=== PATIENT | male | born 1975 | race Caucasian/White ===

== ENCOUNTER 2021-12-11 12:05 | Outpatient (REF) | payer MEDICAID, SELFPAY ==
--- NOTE | ~2021-12-11 | XR_ITS ---
EXAMINATION: XR CHEST CLINICAL INFORMATION: Persistent cough. History of smoking. COMPARISON: November 06, 2018 TECHNIQUE: 2 views of the chest were obtained. FINDINGS: No significant abnormality is noted involving the heart, lungs, mediastinum, bony thorax or soft tissues. XR/XR chest 2V IMPRESSION: No acute disease.
== END 2021-12-11 12:06 | disposition home or self-care (01) ==
LOC: HO.XRAY 12:05
PROVIDERS: PCP Registered Nurse; Visit Provider Registered Nurse
DX: R05.3 Chronic cough (principal)
CPT/HCPCS: 71046

== ENCOUNTER 2022-05-23 14:29 | Outpatient (REF) | payer MEDICAID, SELFPAY | END 2022-05-23 14:30 | disposition home or self-care (01) | LOC: HO.LAB 14:29 | PROVIDERS: Visit Provider Internal Medicine | DX: Z13.89 Encounter for screening for other disorder (principal) | CPT/HCPCS: 87635; C9803 ==

== ENCOUNTER 2023-08-07 16:18 | Outpatient (REF) | payer MEDICAID, SELFPAY ==
[2023-08-11 08:50] LABS: Fentanyl, Ur NEGATIVE; Norfentanyl, Ur NEGATIVE
== END 2023-08-07 16:19 | disposition home or self-care (01) ==
LOC: HO.HHCLNP 16:18
PROVIDERS: Visit Provider Emergency Medicine
DX: F11.20 Opioid dependence, uncomplicated (principal)
CPT/HCPCS: 80354

== ENCOUNTER 2023-08-22 12:50 | Outpatient (REF) | payer MEDICAID, SELFPAY ==
[2023-08-22 16:36] LABS: MANUAL DIFF FLAG NO
[2023-08-22 16:57] LABS: Basophils Absolute Auto 0.1 X10*3/uL (0.0-0.2); Basophils Percent Auto 0.8 % (0-2); Eosinophils Absolute Auto 0.2 X10*3/uL (0.0-0.4); Eosinophils Percent Auto 2.3 % (0-4); Hematocrit 44.3 % (42.0-52.0); Hemoglobin 14.5 g/dl (14.0-18.0); Imm Gran Abs Auto 0.02 X10*3/uL (0.00-0.03); Imm Gran Pct Auto 0.3 % (0.0-0.4); Lymphocytes Absolute Auto 2.3 X10*3/uL (1.2-4.9); Lymphocytes Percent Auto 34.7 % (20-40); Mean Corpuscular HGB Conc 32.7 g/dl (31.0-36.0); Mean Corpuscular Volume 91.5 fL (80.0-98.0); Mean Platelet Volume 9.1 fL (9.4-12.4); Monocytes Absolute Auto 0.4 X10*3/uL (0.1-1.2); Monocytes Percent Auto 6.3 % (2-11); Neutrophils Absolute Auto 3.7 x10*3/uL (2.0-8.3); Neutrophils Percent Auto 55.6 % (45-73); Platelet Count 350 X10*3/uL (160-400); Red Blood Count 4.84 X10*6/uL (4.60-5.80); Red Cell Distribution Width 12.8 % (11.0-16.0); White Blood Count 6.7 X10*3/uL (4.8-10.8)
[2023-08-22 17:18] LABS: Anion Gap 13 (12-20); Blood Urea Nitrogen 10 mg/dL (9-16); Calcium 9.7 mg/dL (8.4-10.2); Carbon Dioxide 30 mmol/L (22-29); Chloride 105 mmol/L (96-108); Estimated Glomerular Filt Rate > 60; Glucose Random 87 mg/dL (60-115); Potassium 4.9 mmol/L (3.3-5.1); Sodium 143 mmol/L (135-145)
[2023-08-22 17:33] LABS: TSH reflex Free T4 0.67 uIU/mL (0.32-4.0)
== END 2023-08-22 12:51 | disposition home or self-care (01) ==
LOC: HO.HHCL 12:50
PROVIDERS: Visit Provider Internal Medicine
DX: R53.83 Other fatigue (principal)
CPT/HCPCS: 36415; 80048; 84443; 85025

== ENCOUNTER 2023-12-31 16:21 | Emergency (ER) | payer OTHER, SELFPAY | END 2023-12-31 17:46 | disposition left against medical advice (07) | PROVIDERS: Emergency Provider Emergency Medicine; PCP Registered Nurse | DX: S61.219A Laceration without foreign body of unspecified finger without damage to nail, initial encounter (principal); X58.XXXA Exposure to other specified factors, initial encounter; Y93.9 Activity, unspecified; Y92.9 Unspecified place or not applicable; Y99.9 Unspecified external cause status ==

== ENCOUNTER 2024-06-28 13:41 | Outpatient (REF) | payer OTHER, SELFPAY ==
[2024-06-28 17:51] LABS: Estimated Average Glucose 105 mg/dL; Hemoglobin A1C 129.1901 umol/L; Hemoglobin A1c % 5.3 % (<6.0); Total Hemoglobin (HGBA1C) 3751.0963 umol/L
[2024-06-28 18:15] LABS: CT PCR NOT DETECTED (Not Detect.); NG PCR NOT DETECTED (Not Detect.)
[2024-06-28 19:39] LABS: Alanine Aminotransferase 23 U/L (0-40); Albumin Level 4.7 g/dL (3.5-5.0); Anion Gap 12 (12-20); Aspartate Amino Transferase 27 U/L (5-37); Bilirubin Direct 0.1 mg/dL (0.0-0.5); Bilirubin Total 0.5 mg/dL (0.0-1.0); Blood Urea Nitrogen 11 mg/dL (9-16); Calcium 9.9 mg/dL (8.4-10.2); Carbon Dioxide 28 mmol/L (22-29); Chloride 107 mmol/L (96-108); Cholesterol 169 mg/dL (<200); Estimated Glomerular Filt Rate > 60; Glucose Random 119 mg/dL (60-115); HDL Cholesterol 54 mg/dL (>40); LDL Cholesterol Calculated 100 mg/dL (<100); Potassium 4.3 mmol/L (3.3-5.1); Sodium 143 mmol/L (135-145); Total Protein 8.2 g/dL (6.5-8.0); Triglycerides 78 mg/dL (<150)
[2024-06-28 20:20] LABS: Alkaline Phosphatase 70 U/L (39-117)
[2024-06-29 04:27] LABS: Syphilis Screen Nonreactive (Nonreactive)
[2024-06-29 04:48] LABS: HIV AB/AG Nonreactive (Nonreactive); HIV Num 1 0.06 S/CO (0.00-0.99); ~HepC Num1 0.12 S/CO (0.00-0.79); ~Hepatitis C Antibody Nonreactive (Nonreactive)
[2024-07-01 10:22] LABS: TS Negative Control Passed; TS Panel A 0; TS Panel B 0; TS Positive Control Passed; TSpotTB Negative (Negative)
== END 2024-06-28 13:42 | disposition home or self-care (01) ==
LOC: HO.HHCL 13:41
PROVIDERS: Family Medicine; Visit Provider Registered Nurse
DX: Z00.00 Encounter for general adult medical examination without abnormal findings (principal); F11.20 Opioid dependence, uncomplicated; E66.811 Obesity, class 1; E66.09 Other obesity due to excess calories; Z68.31 Body mass index [BMI] 31.0-31.9, adult; Z11.1 Encounter for screening for respiratory tuberculosis
CPT/HCPCS: 36415; 80053; 80061; 80076; 82248; 83036; 86481; 86780; 86803; 87389; 87491; 87591

== ENCOUNTER 2024-09-06 14:22 | Outpatient (AMB) | payer OTHER, SELFPAY ==
--- NOTE | 2024-09-06 14:26 | MHC.OFFVIS ---
Vital Signs 09/06/24 14:32 Height 6 ft Weight 211 lb BMI 28.6 BP 141/78 H Blood Pressure Location Rt brachial Position Sitting Pulse 90 Pulse Source Pulse Oximeter Pulse Oximetry (%) 97 Oxygen Delivery Method Room Air Intake Visit Reasons: receurrent anorectal abscess Intake Note: Patient states he is being reffered by PCP Angelica Henley from [facility] for recurrent anorectal abcess. He was reffered on 08/12/2024. Allergies Sulfa (Sulfonamide Antibiotics) [SULFA (SULFONAMIDE ANTIBIOTICS)] Allergy (Intermediate, Verified 09/06/24 14:34) HIVES, Facial swelling Medication List - Last Reconciled 09/06/24 by Jos Zepeda MD buprenorphine-naloxone 12-3 mg 1 film buccal Q24H clonidine HCl 0.1 mg PO BEDTIME doxepin 150 mg PO DAILY gabapentin 400 mg PO DAILY mirtazapine 7.5 mg PO DAILY nicotine 1 patch transdermal DAILY HPI HPI receurrent anorectal abscess: Details: 48-year-old female here for a recurrent area of swelling on the perianal region. He said he has had this for about 2 years but this became swollen again about 3 weeks ago. He says he was told in the past by a different physician that this needs to be excised . Currently there has no swelling. He says that when this was up, sometimes he would see drainage. [facility] Medical History (Updated 09/06/24 @ 15:01 by Jos Zepeda MD) Perianal cyst GERD (gastroesophageal reflux disease) Obesity (BMI 30-39.9) Reactive airway disease Generalized anxiety disorder Polysubstance abuse Tobacco abuse Hypertension H. pylori infection Review of Systems Const Denies chills and Denies fever(s) Card Denies chest pain, Denies dyspnea and Denies dyspnea on exertion Resp Denies cough, Denies dyspnea and Denies dyspnea on exertion GI Denies hematochezia and Denies change in bowel habits Denies hematuria and Denies difficulty urinating Musc Denies back pain and Denies limited range of motion Neuro Denies focal weakness and Denies convulsions Psych Denies depression and Denies mood swings Physical Exam Vital Signs: Last Vital Signs Pulse 90 09/06/24 14:32 BP 141/78 H 09/06/24 14:32 Pulse Ox 97 09/06/24 14:32 Oxygen Delivery Method Room Air 09/06/24 14:32 BMI result Body Mass Index 28.6 Const General: comfortable and no acute distress Orientation/consciousness: patient oriented x3 Neck Neck: Yes no lymphadenopathy Resp Auscultation: clear to auscultation bilaterally Cardio Rhythm: regular rhythm GI Other: Rectal exam shows a small vague induration, probably about 3 mm perianal area to the left, towards the buttock posteriorly, without any redness or fluctuance Palpation (GI): Soft to palpation, nontender and no guarding Neuro General: patient oriented x3 Assessment & Plan Assessment & Plan (1) Perianal cyst: Code(s): K62.89 - Other specified diseases of anus and rectum Category: Medical Plan: He has what appears to be a perianal cyst as described above. I am uncertain if this represents a fistula. I therefore told him that we can proceed with excision under local anesthesia for now. I explained to him the technique of the procedure. I reviewed the risks including but not limited to bleeding, infections and poor healing, as well as the benefits and alternatives. He understands and wants to proceed This will be done in the office on his next visit. Coding Level of Care Code New Pt Level 3 (19744) Diagnoses Perianal cyst K62.89
[2024-09-06 14:32] VITALS: BP 141/78; PULSE 90; O2SAT 97; BMI 28.6
== END 2024-09-06 15:08 | disposition home or self-care (01) ==
LOC: HO.HGS 14:22
PROVIDERS: PCP Registered Nurse; Visit Provider Surgery
DX: K62.89 Other specified diseases of anus and rectum (principal)
CPT/HCPCS: 99203

== ENCOUNTER → 2024-09-06 14:22 | Outpatient (BNVA) | payer OTHER, SELFPAY | PROVIDERS: PCP Registered Nurse; Visit Provider Surgery | DX: K62.89 Other specified diseases of anus and rectum (principal) | CPT/HCPCS: 99202 ==

== ENCOUNTER 2024-09-17 15:35 | Outpatient (REF) | payer OTHER, SELFPAY ==
[2024-09-17 16:15] LABS: Appearance Urine Clear; Color Urine Yellow; Glucose Urine UA Negative (Negative); Leukocyte Esterase Urine Negative (Negative); Nitrite Urine Negative (Negative); PH 5.5 (5.0-9.0); Specific Gravity - Urine >= 1.030 (1.005-1.025); Urine Blood Negative (Negative); Urine Ketones Trace mg/dL (Negative); Urine Protein Negative (Neg-Trace)
[2024-09-17 16:23] LABS: Bacteria Urine None Seen (None Seen); Hyaline Casts Urine 0-2 /LPF (0-2); RBC Urine 0-2 /HPF (0-2); Squamous Epithelial Cell Urine 0-2 /HPF (0-2); WBC Urine 0-5 /HPF (0-5)
--- OUTSIDE RECORDS SUMMARY | 2024-09-17 16:44 | XMS_ITS | Encounter Summary ---
Author Organization [employer] Address [address] [place] [address] Care Team Providers Care Software Asset Manager Name Role Phone [place] [facility] Primary Care Provider [phone] Reason for Visit * Reason Comments Med Refill Encounter Details Date Type Department Care Team (Late Contact Info) Description 06/19/[address] [facility] MED[facility]INE [address] [place] [address] Angelica Henley [facility] [address] [place] [address] Social History Tobacco Use Types Packs/Day Years Used Date Smoking Tobacco: Never Assessed Sex and Gender Information Value Date Recorded Sex Assigned at Male 04/15/2022 10:39 AM EDT Legal Sex Male 10:39 AM EDT Gender Identity Male 04/15/2022 10:39 AM EDT Sexual Orientation Straight 04/15/2022 10 :39 AM EDT documented as of this encounter Plan of Treatment Upcoming Encounters Date Type Department Care Team (Late st Contact Info) Description 09/30/2024 1:45 PM EDT Office Visit [facility] [address] [place] [address] Marychuy Fam MD [address] [place] [address] documented as of this encounter Visit Diagnoses Not on filedocumented in this encounter Care Teams Software Asset Manager Relationship Specialty Start Date End Date Angelica Henley [facility] [address] [place] [address] PCP - General Family Medicine 11/02/21 documented as of this encounter
--- OUTSIDE RECORDS SUMMARY | 2024-09-17 16:44 | XMS_ITS | Encounter Summary ---
Author Organization [employer] Address [address] [facility] [address] [place] [address] Care Team Providers Care Production Illustrator Name Role Phone [place] [facility] Primary Care Provider [phone] Reason for Visit * Reason Onset Date Comments Nurse Triage 12/26/2022 Encounter Details Date Type Department Care Team (Late st Contact Info) Description 12/26/[address] [facility] MEDICINE [address] [place] [address] [facility] [address] [place] [address] Nurse Triage Social History Tobacco Use Types Packs/Day Years Used Date Smoking Tobacco: Never Assessed Sex and Gender Information Value Date Recorded Sex Assigned at Male 04/15/2022 10:39 AM EDT Legal Sex Male 10:39 AM EDT Gender Identity Male 04/15/2022 10:39 AM EDT Sexual Orientation Straight 04/15/2022 10 :39 AM EDT documented as of this encounter Miscellaneous Notes * Telephone Encounter - Reunka Lopez RN - 12/26/2022 3:14 PM EDT Triage call with [employer] Operator ID [id number] Pt reports dizziness for almost a month now. Pt reports tachycardia, not sleeping and my blood sugar may be bad . Pt is at work during triage. Pt reports drinking 1-2 liters of water per day. Pt is concerned that diabetes is a familial problem and doesn't know if what Pt is feeling could be related to blood sugar. Pt is educated as to signs / sx of low blood sugar and high blood sugar. Pt reports feels dizziness in AM when wakes up, has some hunger and weakness during the day. Advised Pt that 1-2 liters of water could decrease blood sugar and needs to be sure to eat protein snacks during thework day and Pt agrees. Pt is requesting to see provider for check up . Offered a 345pm apt today with [facility] but, Pt declined due to work. Apt with Dr. Méndez 01/02 @ 1130am. home care reviewed with Pt. Insurance is verified as active prior to booking. Protocol Used: Dizziness (Adult) Protocol-Based Disposition: See in Office or Video Visit within 2 Weeks Positive Triage Question: * Dizziness not present now, but is a chronic symptom (recurrent or ongoing AND lasting > 4 weeks) * All higher-acuity triage questions were negative Care Advice Discussed: * Reassurance and Education - Dizziness From Standing * Sit Up Slowly Before Standing * Drink Fluids * Lie Down and Rest * Cool Off * Prevention * Reasons To Call Back - After 2 hours of rest and fluids and still feeling dizzy. - Passes out (faints). - You become worse. * Reassurance and Education - Dizziness From Heat Exposure * Drink Liquids * Cool Off * Lie Down and Rest * Prevention * Reasons To Call Back - After 2 hours of rest and fluids and still feeling dizzy. - Passes out (faints). - You become worse. * Telephone Encounter - Helen Vásquez - 12/26/2022 2:39 PM EDT Symptom: Dizziness Outcome: Schedule an urgent appointment (within 4 hours) or talk to a nurse or provider soon Reason: Getting worse The caller accepted this outcome Please contact pt at [phone] (Kyrgyz speaker) documented in this encounter Plan of Treatment Upcoming Encounters Date Type Department Care Team (Late st Contact Info) Description 09/30/2024 1:45 PM EDT Office Visit [facility] MEDICINE [address] [place] [address] Marychuy Fam MD [address] [place], [place] [phone] documented as of this encounter Visit Diagnoses Not on filedocumented in this encounter Care Teams Production Illustrator Relationship Specialty Start Date End Date Angelica Henley FNP [address] [place] [address] PCP - General Family Medicine 11/02/21 documented as of this encounter
--- OUTSIDE RECORDS SUMMARY | 2024-09-17 16:44 | XMS_ITS | Clinical Summary ---
Author Organization [employer] Address [address] [place] [address] 7[address] [place] [address] Care Team Providers Care Hospice Entrance Attendant Name Role Phone Angelica Henley [facility] Primary Care Provider [phone] Allergies Active Allergy Reactions Criticality Noted Date Comments Sulfa Antibiotics Rash Low 04/21/2020 Other reaction(s): rash, rash Medications hydrOXYzine HCl (Atarax) 50 MG tablet take 1 Tablet by oral route 4x/day prn anxiety 2 Active lidocaine (Lidoderm) 5 % patch Place 1 patch on the skin. 2 Active tiZANidine (Zanaflex) 4 MG capsule take 1 capsule by oral route qhs x 1w then qhs prn muscle spasm 2 Active carbamide peroxide (Debrox) 6.5 % otic solution 5 drops every 12 (twelve) hours. 2 Active terbinafine (LamISIL) 1 % cream Apply topically. 2 Active albuterol (ProAir HFA) 108 (90 Base) MCG/ACT inhaler Inhale 2 puffs every 4 (four) hours if needed. 2 Active nicotine polacrilex (Commit) 4 MG lozenge Take 1 tablet by mouth every 2 (two) hours. 2 Active naloxone (Narcan) 4 mg/0.1 mL nasal spray Administer 4 mg into affected nostril(s) if needed for opioid reversal. May repeat every 2-3 minutes if needed, alternating nostrils, until medical assistance becomes available. Active nicotine (Nicoderm, Step 3) 7 MG/24HR patch Place 1 patch on the skin 1 (one) time each day at the same time. Apply 1 patch by transdermal route everyday and wear for 16-24 hrs. Active nicotine (Nicoderm, Step 2) 14 MG/24HR patch Place 1 patch on the skin 1 (one) time each day at the same time. Apply 1 patch by transdermal route everyday and wear for 16-24 hrs. Active nicotine (Nicoderm, Step 1) 21 MG/24HR patch Place 1 patch on the skin 1 (one) time each day at the same time. Apply 1 patch by transdermal route everyday and wear for 16-24 hrs. Active Spacer/Aero-Holdi ng Chambers device For use with proair Active doxepin (SINEquan) 150 MG capsule Take 1 capsule (150 mg) by mouth at bedtime. 5 capsule 3 Active Blood Pressure kit 1 kit in the morning. 1 kit 4 Active Symbicort 80-4.5 MCG/ACT inhaler INHALE 2 PUFFS BY MOUTH TWICE DAILY IN THE MORNING AND IN THE EVENING RINSE MOUTH AFTER USING. 10.2 g 3 4 Active gabapentin (Neurontin) 400 MG capsuleIndication s:Insomnia, unspecified type TAKE 1 CAPSULE BY MOUTH EVERY DAY AT BEDTIME 30 capsule 4 Active buprenorphine ER (Sublocade) 300 mg/1.5mL injectionIndicati ons:Opioid dependence, uncomplicated (CMS/HCC) Inject 1.5 mL (1 each) under the skin every month to absorb continually. 1.5 mL 1 4 Active cloNIDine (Catapres) 0.1 MG tabletIndications :Opioid type dependence, continuous (CMS/HCC) TAKE 1 TABLET BY MOUTH THREE TIMES DAILY 90 tablet 1 4 Active ibuprofen 600 MG tablet Take 1 tablet (600 mg) by mouth every 6 (six) hours if needed for mild pain for up to 20 doses. 20 tablet 4 Active mirtazapine (Remeron) 7.5 MG tablet Take 7.5 mg by mouth at bedtime. 4 Active Suboxone 12-3 MG per sublingual filmIndications:U ncomplicated opioid dependence (CMS/HCC) Place 1 Film under the tongue [address] 1 film by sublingual route 2 times every day and allow to dissolve slowly in mouth without chewing or swallowing. 56 Film 1 5 025 Active varenicline (Chantix Continuing Month Hosea) 1 MG tabletIndications :Tobacco use Take 1 tablet (1 mg) by mouth 2 times daily. Take with full glass of water. 60 tablet 2 5 025 Active Hospital, Clinic, or Other Facility Administered Medication Ordered Dose Route Frequency Start Date End Date Status ibuprofen tablet 800 mgIndications:Injury of finger of left hand, initial encounter 800 mg PO Once 12/31/2023 Active Active Problems Problem Noted Date Diagnosed Date Dental caries 01/22/2024 Dental plaque 01/22/2024 Generalized gingival recession 01/22/2024 Xerostomia 01/22/2024 Severe dental caries 01/14/2024 Chronic low back pain 05/04/2022 Cough 05/04/2022 Greater trochanteric pain syndrome 05/04/2022 Shoulder strain 05/04/2022 Encounters Date Type Department Care Team Description 09/10/2024 Orders Only [facility] [address] [place] [phone] Angelica Henley FNP Dysuria (Primary Dx) 09/06/[address] [address] Angelica Henley FNP Nurse Triage 09/03/2024 2:00 PM EDT Office Visit [address] [address] Angelica Henley FNP 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) 09/03/2024 Travel 08/30/[address] [phone] Angelica Henley FNP Call Back Request 08/20/[address] [address] Angelica Henley FNP Med Refill 08/17/[address] [address] Angelica Henley FNP Call Back Request 08/06/2024 1:15 PM EST Office Visit [address] [address] Angelica Henley FNP 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) 08/06/2024 Travel 08/05/2024 2:45 PM EST Office Visit [address] [address] Marychuy Fam MD Uncomplicated opioid dependence ([facility]/HCC) (Primary Dx) 07/30/2024 1:15 PM EST Office Visit [address] [address] Angelica Henley FNP Cyst of perianal area (Primary Dx); Tobacco use 07/30/[address] [address] Sebastian Poole RN Uncomplicated opioid dependence (CMS/HCC) 07/30/2024 Travel 07/29/[address] [address] Marychuy Fam MD Uncomplicated opioid dependence (CMS/HCC) 07/28/[address] [address] Angelica Henley FNP Nurse Triage 07/26/2024 3:00 PM EST Office Visit [facility] [address] [place] [address] Warren Peoples Dental calculus (Primary Dx) 07/22/2024 Patient Outreach [address] [address] Angelica Henley FNP Pre-visit Planning (SDOH screening negative and tobacco screening negative) 06/30/[address] [address] Pam Darling, RN Results 06/28/2024 Travel from Last 3 Months Immunizations Name Administration Dates Next Due Hep B, adult 12/14/2021 INFLUENZA INJECTABLE QUADRIV ALANT CCIIV4 MDCK Multi-dose vial 04/06/2019 Influenza injectable quadriv alent IIV4 with preservative 03/04/2017 Influenza injectable quadrivalent preservative f ree 05/01/2018 Influenza, IIV3, injectable 04/14/2014 Influenza, seasonal, injectable, preservative fr ee 04/26/2024 Tdap 12/31/2023,12/14/2021 Social History Tobacco Use Types Packs/Day Years Used Date Smoking Tobacco: Every Day Cigarettes Tobacco Cessation:Ready to Q uit: Not Asked; Counseling Given: Not Answered Housing Stability Answer Date Recorded What is your housing situation today? I have carrie saenz 10/03/[address] you li ve. Do you have problems with any of the following? None of the above 10/03/2023 Food Insecurity Answer Date Recorded Within the past 12 months, y ou worried that your food would run out before you got money to buy more: Never True 07/22/2024 Within the past 12 months,th e food you bought just didn't last and you didn't have enough money to get more: Never True 11/2024 Transportation Answer Date Recorded In the past 12 months, has l ack of transportation kept you from medical appts, meetings, work or from getting things needed for daily living? No 10/03/2023 Utilities Answer Date Recorded In the past 12 months, has t he electric, gas, oil or water company threatened to shut off services in your home? No 10/03/2023 Internet Access Answer Date Recorded Internet Access Q1 Yes 07/22/2024 Internet Access Q2 Not on file 07/22/2024 Sex and Gender Information Value Date Recorded Sex Assigned at Male 04/15/2022 10:39 AM EDT Legal Sex Male 10:39 AM EDT Gender Identity Male 04/15/2022 10:39 AM EDT Sexual Orientation Straight 04/15/2022 10 :39 AM EDT Last Filed Vital Signs Vital Sign Reading Time Taken Comments Blood Pressure 136/82 09/03/2024 1:54 PM EDT Pulse 81 09/03/2024 1:54 PM EDT Temperature 36.3 ??C (97.4 ??F) 09/03/2024 1:54 PM ED T Respiratory Rate 20 09/03/2024 1:54 PM EDT Oxygen Saturation 97% 07/30/2024 1:22 PM EST Inhaled Oxygen Concentration - - Weight 96.4 kg (212 lb 9.6 oz) 09/03/2024 1:54 P M EDT Height 182.9 cm (6') 09/03/2024 1:54 PM EDT Body Mass Index 28.83 09/03/2024 1:54 PM EDT Plan of Treatment Upcoming Encounters Date Type Department Care Team (Late st Contact Info) Description 09/30/2024 1:45 PM EDT Office Visit [facility] [address], [place] [phone] Marychuy Fam MD [address] [place], [place] [phone] Health Maintenance Due Date Last Done Comments CT Colonography 1977 Colonoscopy 1977 Colorectal Cancer Screening 1977 FIT DNA/Cologuard 1977 FIT 1977 FOBT 1977 Sigmoidoscopy 1977 Family Planning (PISQ) 1992 Pneumococcal Vaccine: Pediatrics (0 to 5 Years) and At-Risk Patients (6 to 49) Years) (1 of 2 - PCV) 1996 Hepatitis B Vaccines (2 of 3 - 19+ 3-dose series) 01/11/2022 12/14/2021 COVID-19 Vaccine ( - 2023- season) 2024 Dental Oral Exam 07/25/2024 01/22/2024 Depression Screening 10/02/2024 10/03/2023 Dental X-Ray: Bitewings 01/22/2025 01/22/2024 Dental Prophylaxis 01/24/2025 07/26/2024, 01/22/2024 SDOH Screening 07/22/2025 07/22/2024 Alcohol/Substance Use Screening 07/30/2025 07/30/2024 Tobacco Screening 09/06/2025 09/06/2024 Dental X-Ray: Full Mouth 01/22/2027 01/22/2024 Zoster Vaccines (1 of 2) 09/09/2027 Lipid Panel 06/28/2029 06/28/2024, 12/11/2021 DTaP/Tdap/Td Vaccines (3 - Td or Tdap) 12/30/2033 12/31/2023, 12/14/2021 RSV Patients and Patients Aged 60 years or older (1 - 1-dose 75+ series) 2052 Influenza Vaccine Completed 04/26/2024, , 05/01/2018, Additional history exists HIV Screening Completed 06/28/2024, 07/24/2021 Hepatitis C Screening Completed 06/28/2024, 022 HIB Vaccines Aged Out No longer eligi ble based on patient's age to complete this topic HPV Vaccines Aged Out No longer eligi ble based on patient's age to complete this topic Hepatitis A Vaccines Aged Out No long er eligible based on patient's age to complete this topic IPV Vaccines Aged Out No longer eligi ble based on patient's age to complete this topic Meningococcal Vaccine Aged Out No kasia chris eligible based on patient's age to complete this topic RSV under 20 months Aged Out No longe r eligible based on patient's age to complete this topic Rotavirus Vaccines Aged Out No longer eligible based on patient's age to complete this topic Procedures Procedure Name Priority Date/Time Associated Diagnosis Comments URINALYSIS, COMPLETE, WITH REFLEX TO CULTURE Routine 09/17/2024 3:40 PM EDT Dysuria CRYOTHERAPY SKIN LESION Routine 09/03/2024 2:28 PM EDT 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 CRYOTHERAPY SKIN LESION Routine 08/06/2024 2:00 PM EST 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 POCT AYDEN-14 URINE DRUG SCREEN Routine 08/05/2024 1:42 PM EST Uncomplicated opioid dependence (CMS/HCC) CASE PRESENTATION, DETAILED AND EXTENSIVE TREATMENT PLANNING Routine 07/26/2024 3:00 PM EST ORAL HYGIENE INSTRUCTIONS Routine 07/26/2024 3:00 PM EST PROPHYLAXIS - ADULT Routine 07/26/2024 3 :00 PM EST T-SPOT(R).TB Routine 06/28/2024 1:45 PM EST HIV 1/2 ANTIGEN/ANTIBODY, FOURTH GENERATION W/RFL Routine 06/28/2024 1:45 PM EST HEPATITIS C AB W/REFL TO HCV RNA, QN, PCR Routine 06/28/2024 1:45 PM EST SYPHILIS SCREEN Routine 06/28/2024 1:45 PM EST HEPATIC FUNCTION PANEL Routine 1:45 PM EST HEMOGLOBIN A1C Routine 06/28/2024 1:45 PM EST Class 1 obesity due to excess calories with body mass index (BMI) of 31.0 to 31.9 in adult, unspecified whether serious comorbidity present LIPID PANEL, STANDARD Routine 06/28/2024 1:45 PM EST Class 1 obesity due to excess calories with body mass index (BMI) of 31.0 to 31.9 in adult, unspecified whether serious comorbidity present COMPREHENSIVE METABOLIC PANEL Routine 06/28/2024 1:45 PM EST Class 1 obesity due to excess calories with body mass index (BMI) of 31.0 to 31.9 in adult, unspecified whether serious comorbidity present CHLAMYDIA/N. GONORRHOEAE RNA, TMA, UROGENITAL Routine 06/28/2024 1:45 PM EST Healthcare maintenance INTRAORAL - COMPLETE SERIES OF RADIOGRAPHIC IMAGES Routine 01/22/2024 2:00 PM EDT Dental caries Dental plaque Generalized gingival recession Xerostomia COMPREHENSIVE ORAL EVALUATION - NEW OR ESTABLISHED PATIENT Routine 01/22/2024 2:00 PM EDT from Last 3 Months or Most Recently Relevant to Health Maintenance Results * (ABNORMAL) Urinalysis, Complete, with Reflex to Culture (09/17/2024 3:40 PM EDT) Color Urine Yellow [facility] Appearance Urine Clear [facility] PH 5.5 5.0 - 9.0 [facility] Glucose Urine UA Negative Negative mg/dL [facility] Urine Blood Negative Negative [facility] Specific [place] - Urine >=1.030(H) 1.005 - 1.025 [facility] Urine Protein Negative Neg-Trace mg/dL [facility] Urine Ketones Trace Negative mg/dL [facility] Nitrite Urine Negative Negative [facility] Leukocyte Esterase Urine Negative Negative [facility] RBC Urine 0-2 0 - 2 /HPF [facility] Urine WBC 0-5 0 - 5 /HPF [facility] Urine Squamous Epithelial Cell 0-2 0 - 2 /HPF [facility] Urine Bacteria None Seen None Seen [facility] Hyaline Casts, Urine 0-2 0 - 2 /LPF [facility] Urine 09/17/2024 3:40 PM EDT 09/17/2024 4:01 PM EDT Narrative [facility] - 09/17/2024 4:40 PM EDT Urine, Clean Catch Angelica ARAIZA LAB URINE ORDERABLES Final Re sult [facility] [address] [place] [phone] * Cryotherapy, skin lesion (09/03/2024 2:28 PM EDT) Angelica Wagoner FNP - 09/03/2024 2:28 PM EDT TEODORA Rothman ? 09/06/2024 ??3:02 PM Cryotherapy, skin lesion Date/Time: 09/03/2024 2:28 PM Performed by: TEODORA Rothman Authorized by: TEODORA Rothman ?? Consent: ??Consent obtained: ??Verbal and written ??Consent given by: ??Patient ??Procedure risks and benefits discussed: Yes ?Patient questions answered: Yes ?Patient agrees, verbalizes understanding, and wants to proceed: Yes ?Instructions and paperwork completed: Yes ?? [place] protocol: ??Procedure explained and questions answered to patient or proxy's satisfaction: yes ?Relevant documents present and verified: yes ?Required blood products, implants, devices, and special equipment available: yes ?Immediately prior to procedure, a time out was called: yes ?Patient identity confirmed: ??Verbally with patient Sedation: ??Sedation type: ??None Anesthesia: ??Anesthesia method: ??None Post-procedure details: ??Procedure completion: ??Tolerated us Angelica Lory [employer] DERM PROCEDURE ORDERABLES Fin al Result * Cryotherapy, skin lesion (08/06/2024 2:00 PM EST) Narrative Angelica Henley FNP - 08/06/2024 2:00 PM EST TEODORA Rothman ? 08/08/2024 10:58 PM Cryotherapy, skin lesion Date/Time: 08/06/2024 2:00 PM Performed by: TEODORA Rothman Authorized by: TEODORA Rothman ?? Consent: ??Consent obtained: ??Written ??Consent given by: ??Patient ??Procedure risks and benefits discussed: Yes ?Patient questions answered: Yes ?Patient agrees, verbalizes understanding, and wants to proceed: Yes ?Instructions and paperwork completed: Yes ?? [place] protocol: ??Procedure explained and questions answered to patient or proxy's satisfaction: yes ?Relevant documents present and verified: yes ?Required blood products, implants, devices, and special equipment available: yes ?Immediately prior to procedure, a time out was called: yes ?Patient identity confirmed: ??Verbally with patient Sedation: ??Sedation type: ??None Anesthesia: ??Anesthesia method: ??None Post-procedure details: ??Procedure completion: ??Tolerated Result [facility] [employer] DERM PROCEDURE ORDERABLES Fin al Result * POCT AYDEN-14 Urine Drug Screen (08/05/2024 1:42 PM EST) THC Positive Cocaine Screen, Urine Negative Opiate Screen, Urine Negative Methamphetamine Screen Urine Negative Amphetamine Screen, Urine Negative Benzodiazepines Screen, Urine Negative Barbiturate Screen, Urine Negative Methadone Screen, Urine Negative Buprenophine Screen, Urine Positive TCA, Urine Positive MDMA Urine Negative ng/mL Oxycodone Screen, Urine Negative Phencyclidine (PCP), Urine Negative Propoxyphene, Urine Negative Fentanyl, Urine Negative Urine Urine specimen obtained by clean catch procedure / Unknown 08/05/2024 1:42 PM EST Result [facility] Marychuy Fam MD POINT OF CARE TEST ENTER/RHONDA T ORDERABLES Final Result * Syphilis Screen (06/28/2024 1:45 PM EST) Syphilis Screen Nonreactive Nonreactive [facility] 06/28/2024 1:45 PM EST 06/28/2024 4:09 PM EST Marychuy Fam MD LAB BLOOD ORDERABLES Final R esult [facility] [address] [place] [phone] [phone] * T-SPOT??.TB (06/28/2024 1:45 PM EST) T Spot TB Negative Negative [facility] Comment:A negative test resu lt does not exclude the possibilityof exposure to or infection with Mycobacteriumtuberculosis (M. tuberculosis). Patients with recentexposure to TB infected individuals exhibiting anegative T-SPOT.TB result should be considered forretesting within 6 weeks or if other relevant clinicalsymptoms indicate. Results from T-SPOT.TB testing mustbe used in conjunction with each individual'sepidemiological history, current medical status,and results of other diagnostic evaluations.The T-SPOT.TB test is qualitative and results arereported as positive, borderline, or negative, giventhat the test controls perform as expected. In linewith the Centers for Disease Control and Prevention's2010 recommendation to report quantitative measurementsalongside the qualitative result, the laboratoryprovides spot counts for informational purposes only.The T-SPOT.TB test should not be interpreted as aquantitative test. TS PANEL A 0 [facility] TS PANEL B 0 [facility] Negative Control Passed [facility] Positive Control Passed [facility] Comment:For additional infor mation, please refer tohttp://education.[employer]/faq/YVG184(This link is being provided for informational/educational purposes only.)THIS TEST WAS PERFORMED AT:[facility] [id number] [place] [id number] WORRELL MD,PHD 06/28/2024 1:45 PM EST 06/28/2024 4:09 PM EST Marychuy Fam MD LAB BLOOD ORDERABLES Final R esult Performing Organization Address [facility] Co de Phone Number [facility] [address] [place] [phone] * Hepatitis C Antibody with Reflex to HCV, RNA, Quantitative, Real-Time PCR (06/28/2024 1:45 PM EST) Pathologist [facility] Hepatitis C Antibody Nonreactive Nonreactive [facility] Comment:Antibodies to HCV no t detected; does not exclude early acuteHCV infection. 06/28/2024 1:45 PM EST 06/28/2024 4:09 PM EST Marychuy Fam MD LAB BLOOD ORDERABLES Final R esult Performing Organization Address [facility] Co de Phone Number [facility] [address] [place] [phone] * Chlamydia/N. Gonorrhoeae RNA, TMA, Urogenitial (06/28/2024 1:45 PM EST) Pathologist [facility] CT PCR NOT DETECTED Not Detect. [facility] Comment:A not detected test result does not exclude the possibilityof infection because test results can be affected byimproper specimen collection, concurrent antibiotic therapy,or the number of organisms in the specimen which may bebelow the sensitivity of the test. As with many diagnostictests, results from the Xpert CT/NG assay should beinterpreted in conjunction with other laboratory andclinical data available to the clinician.Xpert CT/NG performance has not been evaluated in patientsless than 14 years of age. The assay should not be used forthe evaluationof suspected sexual abuse or for other medico-legalindications. Additional testing is recommended in anycircumstance when false positive or false negative resultscould lead to adverse medical, social or psychologicalconsequences. NG PCR NOT DETECTED Not Detect. [facility] Comment:A not detected test result does not exclude the possibilityof infection because test results can be affected byimproper specimen collection, concurrent antibiotic therapy,or the number of organisms in the specimen which may bebelow the sensitivity of the test. As with many diagnostictests, results from the Xpert CT/NG assay should beinterpreted in conjunction with other laboratory andclinical data available to the clinician.Xpert CT/NG performance has not been evaluated in patientsless than 14 years of age. The assay should not be used forthe evaluationof suspected sexual abuse or for other medico-legalindications. Additional testing is recommended in anycircumstance when false positive or false negative resultscould lead to adverse medical, social or psychologicalconsequences. Urine (Urine, Random) 06/28/2024 1:45 PM EST 06/28/2024 4:04 PM EST Narrative [facility] - 06/28/2024 6:15 PM EST Urine [facility] MICROBIOLOGY - GENERAL OR DERABLES Final Result [facility] [address] [place] [phone] * HIV-1/2 Antigen and Antibodies, Fourth Generation, with Reflexes (06/28/2024 1:45 PM EST) HIV AB/AG Nonreactive Nonreactive [facility] Comment:HIV-1 p24 Ag and/or HIV-1/HIV-2 Ab not detected.A test result that is nonreactive does not exclude thepossibility of exposure to or infection with HIV-1 and/orHIV-2. Nonreactive results in this assay for individualswith prior exposure to HIV-1 and/or HIV-2 may be due toantigen and antibody levels that are below the limit ofdetection of this assay.The [employer] HIV Ag/Ab Combo assay result andsupplemental assay results should be interpreted inconjunction with the patient's clinical presentation,history and other laboratory results. If the results areinconsistent with clinical evidence, additional testing issuggested to confirm the result. 06/28/2024 1:45 PM EST 06/28/2024 4:09 PM EST Marychuy Fam MD LAB BLOOD ORDERABLES Final R esult Performing Organization Address [facility] Co de Phone Number [facility] [address] [place] [phone] * Hemoglobin A1c (06/28/2024 1:45 PM EST) Hemoglobin A1c 5.3 <6.0 % [facility] Comment:Hemoglobin A1C Refer ence Range Adults: 4.8 - 6.0 % Non diabetic: < 6.0 % Goal: < 7.0 %Additional Action Suggested: > 8.0 %Note: Hemoglobin A1c results are invalid for patients with abnormal amounts of HbF. Blood transfusions may impact the HbA1c concentration in the patient sample. Estimated Average Glucose 105 mg/dL [facility] Comment:eAG = Estimated ave rage glucose which is %A1C expressed asaverage glucose, using the formula of the G1F-BmdqkbdKvahnio Glucose study (ADAG), Diabetes Care, Vol.31,#8,Jan. 2007 Blood Venous blood specimen / Unknown 06/28/2024 1:45 PM EST 06/28/2024 4:09 PM EST [facility] [employer] LAB BLOOD ORDERABLES Final Re sult Performing Organization Address [facility] Co de Phone Number [facility] [address] [place] [phone] * Hepatic Function Panel (06/28/2024 1:45 PM EST) Bilirubin, Direct 0.1 0.0 - 0.5 mg/dL [facility] 06/28/2024 1:45 PM EST 06/28/2024 4:09 PM EST Marychuy Fam MD LAB BLOOD ORDERABLES Final R esult Performing Organization Address [facility] Co de Phone Number [facility] [address] [place] [address] [phone] * (ABNORMAL) Lipid Panel, Standard (06/28/2024 1:45 PM EST) Triglycerides 78 <150 mg/dL [facility] Comment:Desirable Triglyceri de: less than 150 mg/dLBorderline High Triglyceride 150-199 mg/dLHigh Triglyceride: 200-499 mg/dLVery High Triglyceride: greater than or equal to 5OO mg/dL Cholesterol 169 <200 mg/dL [facility] Comment:Desirable Cholestero l: less than 200 mg/dLBorderline High Cholesterol: 200-239 mg/dLHigh Cholesterol: greater than 239 mg/dL LDL Cholesterol Calculated 100(H) <100 mg/dL [facility] Comment:Desirable LDL: less than 100 mg/dLNear Optimal/Above Optimal LDL: 110- 129 mg/dLBorderline High LDL: 130-159 mg/dLHigh LDL: 160-189 mg/dLVery High LDL: greater than or equal to 190 mg/dL HDL Cholesterol 54 >40 mg/dL [facility] Comment:Desirable HDL: great er than 40 mg/dL Note: This HDL assay may give artificially low results in patients with liver disease. Blood Venous blood specimen / Unknown 06/28/2024 1:45 PM EST 06/28/2024 4:09 PM EST [facility] LAB BLOOD ORDERABLES Final Re sult Performing Organization Address [facility]/ZIP Co de Phone Number [facility] [address] [place] [address] [phone] * (ABNORMAL) Comprehensive Metabolic Panel (06/28/2024 1:45 PM EST) Sodium 143 135 - 145 mmol/L [facility] Potassium 4.3 3.3 - 5.1 mmol/L [facility] Chloride 107 96 - 108 mmol/L [facility] Carbon Dioxide 28 22 - 29 mmol/L [facility] Anion Gap 12 12 - 20 [facility] Urea Nitrogen (BUN) 11 9 - 16 mg/dL [facility] Creatinine, Serum 0.78 0.5 - 1.4 mg/dL [facility] Estimated Glomerular Filt Rate >60 [facility] Comment:Chronic Kidney Disea se: Estimated GFR < 60 mL/min/1.68g6Yzlvin Kidney Disease: Estimated GFR < 15 mL/min/1.73m2 Glucose 119(H) 60 - 115 mg/dL [facility] Calcium 9.9 8.4 - 10.2 mg/dL [facility] Bilirubin, Total 0.5 0.0 - 1.0 mg/dL [facility] Aspartate Amino Transferase 27 5 - 37 U/L [facility] Alanine Aminotransferase 23 0 - 40 U/L [facility] Total Protein 8.2(H) 6.5 - 8.0 g/dL [facility] Albumin Level 4.7 3.5 - 5.0 g/dL [facility] Alkaline Phosphatase 70 39 - 117 U/L [facility] Blood Venous blood specimen / Unknown 06/28/2024 1:45 PM EST 06/28/2024 4:09 PM EST [facility] BLOOD ORDERABLES Final Re sult [facility] [address] [place] [address] [phone] from Last 3 Months Insurance FOR[facility] [place] DENTAL - HSN PARTIAL (MEDICAID) DENTAL - HSN PARTIAL (MEDICAID) Care Teams Hospice Entrance Attendant Relationship Specialty Start Date End Date FossAngelica, [employer]ING[employer] TEACHER [address] [place] [address] PCP - General Family Medicine 11/02/21
--- OUTSIDE RECORDS SUMMARY | 2024-09-17 16:44 | XMS_ITS | Encounter Summary ---
Author Organization [employer] Address [address] [facility] 7t [place] [address] Care Team Providers Care Maintenance And Engineering Manager Name Role Phone Angelica Henley TECHNICAL FELLOW Primary Care Provider [phone] Reason for Visit * Reason Comments Med Refill Encounter Details Date Type Department Care Team ([facility] st Contact Info) Description 01/15/2024 Refill [facility] [address] [place] [address] Marychuy Fam MD [address] [place], [place] [phone] Uncomplicated opioid dependence (CMS/HCC) Social History Tobacco Use Types Packs/Day Years Used Date Smoking Tobacco: Every Day Cigarettes Housing Stability Answer Date Recorded What is your housing situation today? I have carrie saenz 10/03/[address] you li ve. Do you have problems with any of the following? None of the above 10/03/2023 Food Insecurity Answer Date Recorded Within the past 12 months, y ou worried that your food would run out before you got money to buy more: Sometimes True 2023 Within the past 12 months,th e food you bought just didn't last and you didn't have enough money to get more: Sometimes True 10/03/2023 Transportation Answer Date Recorded In the past 12 months, has l ack of transportation kept you from medical appts, meetings, work or from getting things needed for daily living? No 10/03/2023 Utilities Answer Date Recorded In the past 12 months, has t he electric, gas, oil or water company threatened to shut off services in your home? No 10/03/2023 Sex and Gender Information Value Date Recorded Sex Assigned at Male 04/15/2022 10:39 AM EDT Legal Sex Male 10:39 AM EDT Gender Identity Male 04/15/2022 10:39 AM EDT Sexual Orientation Straight 04/15/2022 10 :39 AM EDT documented as of this encounter Plan of Treatment Upcoming Encounters Date Type Department Care Team (Late st Contact Info) Description 09/30/2024 1:45 PM EDT Office Visit [facility] [address] [place] [address] Marychuy Fam MD [address] [place] [address] documented as of this encounter Visit Diagnoses Diagnosis Uncomplicated opioid dependence (CMS/HCC) documented in this encounter Care Teams Maintenance And Engineering Manager Relationship Specialty Start Date End Date Angelica Henley FNP [address] [place] [address] PCP - General Family Medicine 11/02/21 documented as of this encounter
--- OUTSIDE RECORDS SUMMARY | 2024-09-17 16:44 | XMS_ITS | Encounter Summary ---
Author Organization [employer] Address [address] [place] [address] Care Team Providers Care Store Administrator Name Role Phone Angelica Henley [facility] Primary Care Provider [phone] Reason for Visit * Reason Comments Med Refill Encounter Details Date Type Department Care Team (Late st Contact Info) Description 09/25/2023 Refill [facility] [address] [place] [phone] Tiburcio Horvath MD [address] [place] [phone] Uncomplicated opioid dependence (CMS/HCC) Social History Tobacco [...] Description 09/30/2024 1:45 PM EDT Office Visit [facility] [address] [place] [phone] Marychuy Fam MD [address] [place] [address] [phone] documented as of this encounter Visit Diagnoses Diagnosis Uncomplicated opioid dependence (CMS/HCC) documented in this encounter Care Teams Store Administrator Relationship Specialty Start Date End Date Angelica Henley FNP [address] [place] [phone] PCP - General Family Medicine 11/02/21 documented as of this encounter
--- OUTSIDE RECORDS SUMMARY | 2024-09-17 16:44 | XMS_ITS | Encounter Summary ---
Author Organization [facility] Address [address] [place] [address] Care Team Providers Care Transfer Clerk Name Role Phone Angelica Henley [facility] Primary Care Provider [phone] Reason for Visit * Reason Comments Med Refill Encounter Details Date Type Department Care Team (Late st Contact Info) Description 12/20/2022 Refill [facility] [address] [place] [address] Peterson Black MD [address] [place] [phone] Uncomplicated opioid dependence (CMS/HCC) Social History Tobacco [...] Description 09/30/2024 1:45 PM EDT Office Visit [facility] [address] [place] [address] Marychuy Fam MD [address] [place], [place] [phone] documented as of this encounter Visit Diagnoses Diagnosis Uncomplicated opioid dependence (CMS/HCC) documented in this encounter Care Teams Transfer Clerk Relationship Specialty Start Date End Date Angelica Henley FNP [address] [place] [phone] PCP - General Family Medicine 11/02/21 documented as of this encounter
--- OUTSIDE RECORDS SUMMARY | 2024-09-17 16:44 | XMS_ITS | Encounter Summary ---
Author Organization [employer] Address [address] [facility] 7t [place] [address] Care Team Providers Care Switch Foreman Name Role Phone [place] [facility] Primary Care Provider [phone] Reason for Visit * Reason Onset Date Comments Nurse Triage 09/06/2024 Encounter Details Date Type Department Care Team ([facility] st Contact Info) Description 09/06/2024 Telephone [facility] [address] [place] [address] [facility] [address] [place] [address] Nurse Triage Social History Tobacco Use Types [...] encounter Miscellaneous Notes * Telephone Encounter - Megan Kc RN - 09/16/2024 2:41 PM EDT TC placed to patient [phone] via [employer] ([employer] #[id number]). Patient informed urinalysisneeds to completed prior to urology referral being placed. Patient advised once PCP receives urinalysis results, PCP will call patient to discuss results and urology referral. Patient verbalized understanding. Patient to f/u PRN. * Telephone Encounter - Ann-Marie Rizo RN - 09/13/2024 3:50 PM EDT TC x2 placed to patient [phone] regarding below message. Patient informed RN that he is looking for urologist referral for a prostate exam. Pt also reported UTI symptoms, not very specific. RN informed patient that his PCP put in a order for a urine ans STI testing. Patient verbalized understanding. Please advise if agreeable for the urologist referral. * Telephone Encounter - Zak Hendricks - 09/13/2024 2:38 PM EDT Tc from pt returning call. Pt inform please reach out after 2 pm as he would be able to answer any calls [phone] (australian speaker) * Telephone Encounter - Ann-Marie Rizo RN - 09/13/2024 9:19 AM EDT TC placed to patient [phone] regarding below message. Patient mother answered the phone which is on HIPAA. RN informed mother if patient has any UTI s/s to go to the [facility]. Pt to F/U PRN. TC placed to patient [phone] in regards to below message. RN unable to leave VM. Patient VM isnot set up at this time. Pt to F/U PRN. * Telephone Encounter - Ju Arias RN - 09/06/2024 12:41 PM EDT Called pt. Via [facility] prenatal nurse [employer]. Pt. States that last week he had an appt. With And during that appt, they spoke about him having trouble urinating. Pt. States that PCP was going torefer pt. To a Urologist but, I do not see any note in chart about Urology referral. Pt also stateshe was told by PCP that he needs to do a prostate test due to his age and I do not see any lab order for that in chart or mention of it in last office visit note. Pt wants me to send message to his provider to see if she remembers having that conversation with pt. Pt. Denies any pain with urination, no visible blood in urine, no foul smell. I told him that I will send message to PCP and have one of her team nurses call him back today with decision. I did give pt. Hours for walk in but, he states he already discussed this and is hoping for the test to be ordered so he can go to lab at his work/job , he works a lot of hours and doesn't have free time to go to walk in. Please advise and call pt. Back with decision on order and referral. Protocol Used: Urinary Symptoms (Adult) Protocol-Based Disposition: Send message to PCP and have team nurse call pt. Back with PCP advice. Positive Triage Question: * Urination is difficult to start (i.e., hesitancy) or straining * All higher-acuity triage questions were negative Care Advice Discussed: * Reassurance and Education - Urinary Hesitancy * Reasons To Call Back - Fever occurs - Pain or burning with urination - Unable to urinate and bladder feels full - You become worse * Telephone Encounter - Marcy Priest - 09/06/2024 12:20 PM EDT Symptom: Urine Symptoms Outcome: Schedule a same-day appointment or talk to a nurse or provider today Reason: Caller denied all higher acuity questions The caller accepted this outcome. Pt would like a referral to a Urologists for a prostate exam documented in this encounter Plan of Treatment Upcoming Encounters Date Type Department Care Team (Late st Contact Info) Description 09/30/2024 1:45 PM EDT Office Visit [facility] [address] [place] [address] Marychuy Fam MD [address] [place] [address] documented as of this encounter Visit Diagnoses Not on filedocumented in this encounter Care Teams Switch Foreman Relationship Specialty Start Date End Date Angelica Henley FNP [address] [place] [address] PCP - General Family Medicine 11/02/21 documented as of this encounter
--- OUTSIDE RECORDS SUMMARY | 2024-09-17 16:44 | XMS_ITS | Encounter Summary ---
Author Organization [employer] [facility] Address [address] [place] [address] Care Team Providers Care Heel Cutter Name Role Phone [facility] Primary Care Provider Reason for Visit * Reason Comments Med Refill Encounter Details Date Type Department Care Team ([facility] Contact Info) Description 08/13/2023 Refill [facility] MED[facility] [address] [place] [address] Angelica Henley [facility] [address] [place] [address] Opioid type dependence, continuous (CMS/HCC) Social History Tobacco Use Types Packs/Day [...] Encounters Date Type Department Care Team (Late Contact Info) Description 09/30/2024 1:45 PM EDT Office Visit [facility] [address] [place] [phone] Marychuy Fam MD [address] [place] [address] documented as of this encounter Visit Diagnoses Diagnosis Opioid type dependence, continuous (CMS/HCC) Opioid type dependence, continuous documented in this encounter Care Teams Heel Cutter Relationship Specialty Start Date End Date Angelica Henley FNP [address] [place] [address], [place] [address] PCP - General Family Medicine 11/02/21 documented as of this encounter
--- OUTSIDE RECORDS SUMMARY | 2024-09-17 16:44 | XMS_ITS | Encounter Summary ---
Author Organization [employer] Address [address] [place] [address] 7t [place] [address] Care Team Providers Care Exercise Teacher Name Role Phone Angelica Henley BRAND DIRECTOR Primary Care Provider [phone] Encounter Details Date Type Department Care Team (Late Contact Info) Description 05/17/2022 Orders Only [facility] MEDICINE [address] [place] [phone] Peterson Black MD [address] [place] [address] [phone] Opioid type dependence, continuous (CMS/HCC) Social History Tobacco Use Types Packs/Day Years Used Date Smoking Tobacco: Never Assessed Sex and Gender Information Value Date Recorded Sex Assigned at Male 04/15/2022 10:39 AM EDT Legal Sex Male 10:39 AM EDT Gender Identity Male 04/15/2022 10:39 AM EDT Sexual Orientation Straight 04/15/2022 10 :39 AM EDT COVID-19 Exposure Response Date Recorded In the last 10 days, have yo u been in contact with someone who was confirmed or suspected to have Coronavirus/COVID-19? No / Unsure 05/17/2022 9:09 AM EST documented as of this encounter Plan of Treatment Upcoming Encounters Date Type Department Care Team (Late Contact Info) Description 09/30/2024 1:45 PM EDT Office Visit [facility] MED[facility]INE [address] [place] [address] Marychuy Fam MD [address] [place] [address] [phone] documented as of this encounter Visit Diagnoses Diagnosis Opioid type dependence, continuous (CMS/HCC) Opioid type dependence, continuous documented in this encounter Care Teams Exercise Teacher Relationship Specialty Start Date End Date Lory TEODORA Dominguez [address] [place] [address] PCP - General Family Medicine 11/02/21 documented as of this encounter
[2024-09-17 18:08] LABS: CT PCR NOT DETECTED (Not Detect.); NG PCR NOT DETECTED (Not Detect.)
[2024-09-18 07:17] LABS: HIV AB/AG Nonreactive (Nonreactive); HIV Num 1 0.06 S/CO (0.00-0.99)
== END 2024-09-17 15:36 | disposition home or self-care (01) ==
LOC: HO.HHCL 15:35
PROVIDERS: Visit Provider Registered Nurse
DX: Z00.00 Encounter for general adult medical examination without abnormal findings (principal); R30.0 Dysuria
CPT/HCPCS: 81001; 87389; 87491; 87591

== ENCOUNTER 2024-12-02 14:45 | Outpatient (AMB) | payer OTHER, SELFPAY ==
--- NOTE | 2024-12-02 14:57 | A.OFFVIS_ITS ---
Vital Signs 12/02/24 15:00 Height 6 ft Weight 200 lb 9.93 oz BMI 27.2 BP 133/76 Pulse 105 H Intake Visit Reasons: recurrent anorectal abscess Intake Note: Olayinka presents in the office as a follow up for recurrent anoectal abscess. CC: States that the abscess is causing him pains at times and he states he is also having issues in his stomach. Delicatessen Store Manager Required: Yes Delicatessen Store Manager Name: mom Allergies Sulfa (Sulfonamide Antibiotics) (SULFA (SULFONAMIDE ANTIBIOTICS)) Allergy (Intermediate, Verified 12/02/24 15:00) HIVES, Facial swelling HPI HPI recurrent anorectal abscess: Details: He is here for excision of a cyst in the perianal area. [facility] Medical History Perianal cyst GERD (gastroesophageal reflux disease) Obesity (BMI 30-39.9) Reactive airway disease Generalized anxiety disorder Polysubstance abuse Tobacco abuse Hypertension H. pylori infection Surgical History Hx of colonoscopy History of esophagogastroduodenoscopy (EGD) Hx of cholecystectomy Physical Exam Vital Signs: Last Vital Signs Pulse 105 H 12/02/24 15:00 BP 133/76 12/02/24 15:00 BMI result Body Mass Index 27.2 Office Procedures Excision Details: He was in yarely-knife position. A cystic induration was seen on the left perianal area measuring about 7 mm. This area was prepped and draped. Lidocaine 1% was used for local anesthesia. I made an elliptical incision of the skin surrounding this area with a blade 15. TThis carried down through the full-thickness of the skin and subcutaneous fat to excise this entire indurated area. This was sent as specimen. I closed the incision with full-thickness chromic 3-0 simple interrupted sutures. A Band-Aid was applied. The procedure was completed. He tolerated procedure well. There were no immediate complications. 46187-ogpxm/arms/legs 0.6-1cm Procedure code (CPT) selection complete Assessment & Plan Assessment & Plan (1) Perianal cyst: Code(s): K62.89 - Other specified diseases of anus and rectum Category: Medical Plan: Excision was done in the office. He tolerated procedure well. Was given wound care instructions. I will see him for a postop check in about 2 weeks. Medications: New ibuprofen 200 mg PO Q6H PRN 20 tabs 2RF pain Coding Level of Care Code Procedure Only Diagnoses Perianal cyst K62.89 CPT Codes Trunk/Arms/Legs - CPT: 36622-zfese/arms/legs 0.6-1cm ([id number])
[2024-12-02 15:00] VITALS: BP 133/76; PULSE 105; BMI 27.2
--- OUTSIDE RECORDS SUMMARY | 2024-12-02 16:03 | XMS_ITS | Encounter Summary ---
Author Organization [employer] Address [address] [facility] 7t [place] [address] Care Team Providers Care Die Attaching Machine Tender Name Role Phone Angelica Henley MANAGER FIELD SALES Primary Care Provider Reason for Visit * Reason Comments Med Refill Encounter Details Date Type Department Care Team ([facility] st Contact Info) Description 01/15/2024 Refill [facility] MEDICINE [address] [place] [address] Marychuy Fam MD [address] [place] [address] Uncomplicated opioid dependence (CMS/HCC) Social History Tobacco [...] Care Team (Late st Contact Info) Description 12/06/2024 3:15 PM EDT Office Visit [address] [address] Angelica Henley FNP [address] [place] [phone] 12/09/2024 2:15 PM EDT Office Visit [address] [address] Marychuy Fam MD [address] [place] [address] 01/20/2025 2:00 PM EDT Clinical Support [address] [address] Terri Barragan, JOSE R documented as of this encounter Visit Diagnoses Diagnosis Uncomplicated opioid dependence (CMS/HCC) documented in this encounter Care Teams Die Attaching Machine Tender Relationship Specialty Start Date End Date Angelica Henley FNP [address] [place] [address] PCP - General Family Medicine 11/02/21 documented as of this encounter
== END 2024-12-02 15:35 | disposition home or self-care (01) ==
PROVIDERS: PCP Nurse Practitioner Family; Visit Provider Surgery
DX: L72.0 Epidermal cyst (principal)
CPT/HCPCS: 11421

== ENCOUNTER → 2024-12-02 14:45 | Outpatient (BNVA) | payer OTHER, SELFPAY | PROVIDERS: PCP Nurse Practitioner Family; Visit Provider Surgery | DX: K61.2 Anorectal abscess (principal); K62.89 Other specified diseases of anus and rectum | CPT/HCPCS: 11421; 88304 ==

== ENCOUNTER 2025-01-06 13:55 | Outpatient (AMB) | payer OTHER, SELFPAY ==
--- NOTE | 2025-01-06 14:05 | A.OFFVIS_ITS ---
Intake Visit Reasons: Lower urinary tract symptoms Intake Note: Patient is present for LOWER URINARY TRACT SYMPTOMS Urology Medication:NONE Antibiotic Allergy:SULFA Blood Thinner:NONE TODAY'S PVR: 0ML'S Medical Director/Head Team Physician Required: No Allergies Sulfa (Sulfonamide Antibiotics) (SULFA (SULFONAMIDE ANTIBIOTICS)) Allergy (Intermediate, Verified 01/06/25 14:06) HIVES, Facial swelling HPI Comments Details: Venancio is a pleasant 49 year old Estonian-speaking male patient of Dr. Lorne ray who was accompanied by his mom at today's office visit. He has a past medical history of perianal cyst, GERD, obesity, reactive airway disease, anxiety, polysubstance abuse disorder, tobacco abuse, hypertension, and H pylori infection. He presents to the office today as a new patient for ongoing lower urinary tract symptoms he has been experiencing. In discussion with the patient today he reports noting for many months possibly years he continues to experience issues with his urination when he is having issues moving his bowels. He discusses a longstanding history of constipation and feels he has urinary hesitancy, weak urinary stream, and feeling of incomplete bladder emptying with episodes of constipation. He reports when he is not constipated or he experiences episodes of diarrhea he has no bothersome urinary issues. He also reports episodes of scrotal discomfort at times. However describes these episodes as infrequent. He currently denies pain in the area. He reports previously following up with a urologist in [place] over 20 years ago for his history of nephrolithiasis that required surgical intervention. In office urinalysis results reviewed with the patient today. PVR 0 mL. We did discussed correlation of constipation and lower urinary tract symptoms. We did discuss potential constipation related to side effects of medications patient is taking. We did discuss further workup in risks and benefits of these interventions. All questions were answered. assessment was offered as well as ELENA however patient declined/deferred. He denies incontinence, hematuria, dysuria, foul smelling urine,, flank pain, fever, and or chills. He otherwise offers no other issues or concerns at this time. [facility] Medical History Perianal cyst GERD (gastroesophageal reflux disease) Obesity (BMI 30-39.9) Reactive airway disease Generalized anxiety disorder Polysubstance abuse Tobacco abuse Hypertension H. pylori infection Surgical History Hx of colonoscopy History of esophagogastroduodenoscopy (EGD) Hx of cholecystectomy Review of Systems Const All systems reviewed & are unremarkable except as noted in HPI and below Physical Exam Const General: cooperative, comfortable, no acute distress, well developed, alert and awake Orientation/consciousness: patient oriented x3 Limitations: language barrier HEENT Head: Yes normal to inspection, Yes normocephalic and Yes atraumatic Ears: hearing grossly normal bilaterally Eyes General: appearance normal, both eyes and all related structures Neck Neck: Yes normal visual inspection and Yes trachea midline Chest Chest palpation & inspection: normal inspection of the chest Resp Effort & Inspection: normal respiratory effort and able to speak in complete sentences Cardio Rate: regular rate GI Inspection: Yes normal to inspection General: Yes no CVA tenderness Back/Spine/Pelvis Back: no CVA tenderness Skin General skin exam: no rashes or lesions noted Neuro General: patient oriented x3 Extrem General: Yes normal to inspection Psych Appearance: grossly normal and well kempt Mental Status: mental status grossly normal Speech and movement: Normal speech and movement present and Clear speech present Affect: normal affect Attitude: cooperative Thought process: Normal thought process present Thought content: Normal thought content present Insight: Fair insight present (Psych) Judgement: Fair judgement present (Psych) Office Procedures Post Void Residual Post Residual Void Post Void Residual (PVR): 0 [id number] Void Residual by ultrasound Results AMB Urinalysis, Automated UA Leukoctes 0 Kathie/uL Last Edit by OSITO Baxter on 01/06/25 14:26 UA Nitrite Negative Last Edit by OSITO Baxter on 01/06/25 14:26 UA Urobilinogen 0.2 mg/dL Last Edit by OSITO Baxter on 01/06/25 14:2 6 UA Protein 15 mg/dL Last Edit by OSITO Baxter on 01/06/25 14:26 UA pH 6.0 Last Edit by OSITO Baxter on 01/06/25 14:26 UA Blood 0 Dc/uL Last Edit by OSITO Baxter on 01/06/25 14:26 UA Specific Buckeye 1.025 Last Edit by OSITO Baxter on 01/06/25 14: 26 UA Ketone Negative Last Edit by OSITO Baxter on 01/06/25 14:26 UA Bilirubin 0 mg/dL Last Edit by OSITO Baxter on 01/06/25 14:26 UA Glucose 0 mg/dL Last Edit by OSITO Baxter on 01/06/25 14:26 Results Reviewed Results Reviewed: Laboratory Last Values Urine pH (Auto) 6.0 01/06/25 14:25 Specific Buckeye (Auto) 1.025 01/06/25 14:25 Urine Protein (Auto) 15 mg/dL 01/06/25 14:25 Glucose (UA)(Auto) 0 mg/dL 01/06/25 14:25 Urine Ketones (Auto) Negative 01/06/25 14:25 Urine Blood (Auto) 0 Dc/uL 01/06/25 14:25 Urine Nitrite (Auto) Negative 01/06/25 14:25 Urine Bilirubin (Auto) 0 mg/dL 01/06/25 14:25 Urine Urobilinogen (Auto) 0.2 mg/dL 01/06/25 14:25 Leukocyte Esterase (Auto) 0 Kathie/uL 01/06/25 14:25 Assessment & Plan Assessment & Plan (1) Weak urinary stream: Code(s): R39.12 - Poor urinary stream Category: Medical (2) Feeling of incomplete bladder emptying: Code(s): R39.14 - Feeling of incomplete bladder emptying Category: Medical (3) Scrotal pain: Code(s): N50.82 - Scrotal pain Category: Medical Plan In office urinalysis results with the patient today; as noted above. PVR 0 mL. assessment and ELENA was offered however deferred. We did discussed correlation of constipation and lower urinary tract symptoms. Will refer to GI for further assessment evaluation. Will obtain retroperitoneal ultrasound for further assessment evaluation. Will obtain scrotal ultrasound for further assessment evaluation Will obtain PSA for further assessment evaluation. We did discuss OTC measures for constipation. Start Flomax as discussed and prescribed All questions were answered. Follow-up in 1-3 months with imaging and labs to be completed prior; or sooner with any issues, concerns, and or questions. Orders: Orders AMB Urinalysis Automated Today Z13.9 - Encounter for screening, unspecified US scrotum Today N50.82 - Scrotal pain Prostate Specific Antigen Today N40.0 - Benign prostatic hyperplasia without lower urinary tract symptoms, R39.12 - Poor urinary stream, R39.14 - Feeling of incomplete bladder emptying US retroperitoneal comp Today R39.12 - Poor urinary stream, R39.14 - Feeling of incomplete bladder emptying Referrals Gastroenterology Referral K59.00 - Constipation, unspecified Medications: New tamsulosin 0.4 mg PO BEDTIME 30 caps 3RF 30 days N40.1 - Benign prostatic hyperplasia with lower urinary tract symptoms, R35.1 - Nocturia Patient Instructions: The patient had an opportunity to ask questions regarding the treatment plan. All questions were answered. Physical exam, labs, and imaging were discussed and reviewed in detail. As well as risks, benefits, and discussion of treatment choices. No major barriers to understanding were identified. The patient expressed understanding and agreement with the above treatment plan. The patient was made aware they should contact our office by phone for worsening of their current condition, the appearance of new symptoms, or with any questions or concerns. Compliance is encouraged with any medications and follow up testing that is ordered. It is a privilege to be allowed the opportunity to participate in? your urological care.? Again, if you have any questions or concerns If you have any questions or concerns please do not hesitate to contact me. The office is [phone]. This note is constructed using voice recognition software. While every effort has been made to ensure accuracy certified technician specialist errors may have been included. Yours sincerely, ADAM Schmitt Coding Level of Care Code New Pt Level 4 (55198) Diagnoses Weak urinary stream R39.12 Feeling of incomplete bladder emptying R39.14 Scrotal pain N50.82 CPT Codes Post Residual Void - PVR CPT Code: 61450-Htad Void Residual by ultrasound ([id number])
== END 2025-01-06 14:53 | disposition home or self-care (01) ==
LOC: HO.HUSH 13:56
PROVIDERS: PCP Registered Nurse; Visit Provider Nurse Practitioner Family
DX: R39.12 Poor urinary stream (principal); R39.14 Feeling of incomplete bladder emptying; N50.82 Scrotal pain; Z13.9 Encounter for screening, unspecified
CPT/HCPCS: 99204

== ENCOUNTER → 2025-01-06 13:55 | Outpatient (BNVA) | payer OTHER, SELFPAY | PROVIDERS: PCP Registered Nurse; Visit Provider Nurse Practitioner Family | DX: R39.12 Poor urinary stream (principal); R39.14 Feeling of incomplete bladder emptying; N50.82 Scrotal pain | CPT/HCPCS: 51798; 81003; 99202 ==

== ENCOUNTER 2025-01-24 15:05 | Outpatient (AMB) | payer OTHER, SELFPAY ==
--- NOTE | 2025-01-24 15:07 | A.OFFVIS_ITS ---
Vital Signs 01/24/25 15:15 Height 6 ft Weight 198 lb BMI 26.9 BP 121/77 Blood Pressure Location Rt brachial Position Sitting Pulse 107 H Intake Visit Reasons: Pilinital cyst other side Intake Note: Patient scheduled today's appointment for assessment of cyst near previous site on Lt perianal area. Reports excision on 12-02-2024 healed well. Patient c/o: new cyst growing next to previous cyst. [employer] Required: No Accompanied by: Self / Same As Patient Allergies Sulfa (Sulfonamide Antibiotics) (SULFA (SULFONAMIDE ANTIBIOTICS)) Allergy (Intermediate, Verified 01/24/25 15:14) HIVES, Facial swelling Medication List - Last Reconciled 01/24/25 by Jos Zepeda MD buprenorphine-naloxone 12-3 mg 1 film buccal Q24H clonidine HCl 0.1 mg PO BEDTIME doxepin 150 mg PO DAILY gabapentin 400 mg PO DAILY ibuprofen 200 mg PO Q6H PRN mirtazapine 7.5 mg PO DAILY tamsulosin 0.4 mg PO BEDTIME 30 days HPI HPI Pilinital cyst other side: Details: He says he wants a cyst on the right thigh checked. He also underwent excision of a perianal cyst under local anesthesia last November,. He feels that there is a ?small lump? in the area. He denies any drainage on the previous excision site. He does admit to swelling, pain and occasional scanty drainage on the right thigh cyst. [facility] Medical History (Updated 01/24/25 @ 15:33 by Jos Zepeda MD) Epidermal cyst Perianal cyst GERD (gastroesophageal reflux disease) Obesity (BMI 30-39.9) Reactive airway disease Generalized anxiety disorder Polysubstance abuse Tobacco abuse Hypertension H. pylori infection Surgical History Hx of colonoscopy History of esophagogastroduodenoscopy (EGD) Hx of cholecystectomy Review of Systems Const Denies chills and Denies fever(s) Card Denies chest pain, Denies dyspnea and Denies dyspnea on exertion Resp Denies cough, Denies dyspnea and Denies dyspnea on exertion GI Denies hematochezia and Denies change in bowel habits Denies hematuria and Denies difficulty urinating Musc Denies back pain and Denies limited range of motion Neuro Denies focal weakness and Denies convulsions Psych Denies depression and Denies mood swings Physical Exam Vital Signs: Last Vital Signs Pulse 107 H 01/24/25 15:15 BP 121/77 01/24/25 15:15 BMI result Body Mass Index 26.9 Const General: comfortable and no acute distress Orientation/consciousness: patient oriented x3 Neck Neck: Yes no lymphadenopathy Resp Auscultation: clear to auscultation bilaterally Cardio Rhythm: regular rhythm GI Palpation (GI): Soft to palpation, nontender and no guarding Neuro General: patient oriented x3 Extrem Other: Right medial thigh with note of a cystic induration, about 1 cm in size, not fluctuant currently, not tender with note of a scanty drainage; I do not feel any cystic induration or any skin changes on the previous excision site on the perianal area Assessment & Plan Assessment & Plan (1) Epidermal cyst: Code(s): L72.0 - Epidermal cyst Category: Medical Plan: He has what appears to be an epidermal cyst on the right thigh as described rancho e. He wants to proceed with excision. I explained the technique of excision under local anesthesia. I reviewed the risks including but not limited to bleeding infections, as well as the benefits and alternatives. He wants to proceed. This has been done in the office on his next visit I do not feel any recurrent cyst in the perianal area near the scrotum currently so I would hold off on any re-excision for now. Coding Level of Care Code Est Pt Level 3 (89618) Diagnoses Epidermal cyst L72.0
[2025-01-24 15:15] VITALS: BP 121/77; PULSE 107; BMI 26.9
--- OUTSIDE RECORDS SUMMARY | 2025-01-24 15:25 | XMS_ITS | Encounter Summary ---
Author Organization [employer] Address [address] [facility] 7t [place] [address] Care Team Providers Care Mixing Machine Feeder Name Role Phone Angelica Henley DATA GOVERNANCE ANALYST Primary Care Provider [phone] Reason for Visit * Reason Comments Med Refill Encounter Details Date Type Department Care Team ([facility] st Contact Info) Description 01/15/2024 Refill [facility] MEDICINE [address] [place] [address] Marychuy Fam MD [address] [place] [address] Uncomplicated opioid dependence (CMS/HCC) Social History Tobacco [...] Care Team (Late st Contact Info) Description 01/28/2025 3:00 PM EDT Office Visit [facility] ADULT DENTAL [address] [place] [address] Warren Peoples 02/17/2025 2:30 PM EDT Office Visit [facility] MEDICINE [address] [place] [address] Marychuy Fam MD [address] [place] [address] documented as of this encounter Visit Diagnoses Diagnosis Uncomplicated opioid dependence (CMS/HCC) documented in this encounter Care Teams Mixing Machine Feeder Relationship Specialty Start Date End Date Angelica Henley FNP [address] [place] [phone] PCP - General Family Medicine 11/02/21 documented as of this encounter
== END 2025-01-24 15:29 | disposition home or self-care (01) ==
LOC: HO.HGS 15:05
PROVIDERS: PCP Registered Nurse; Visit Provider Surgery
DX: L72.0 Epidermal cyst (principal)
CPT/HCPCS: 99213

== ENCOUNTER → 2025-01-24 15:05 | Outpatient (BNVA) | payer OTHER, SELFPAY | PROVIDERS: PCP Registered Nurse; Visit Provider Surgery | DX: L72.0 Epidermal cyst (principal) | CPT/HCPCS: 99212 ==

== ENCOUNTER 2025-03-18 14:20 | Outpatient (REF) | payer OTHER, SELFPAY ==
--- NOTE | ~2025-03-18 | US_ITS ---
EXAMINATION: US SCROTUM CLINICAL INFORMATION: Scrotal pain. COMPARISON: None available. TECHNIQUE: A sonogram of the scrotum was performed assessing morejon-scale appearance and color Doppler flow. Spectral Doppler analysis of the arterial and venous flow were performed in the testes bilaterally. FINDINGS: RIGHT: Right testicle measures 4.2 x 1.7 x 3.4 cm, volume 13 mL. No focal testicular parenchymal lesions are visualized. Spectral Doppler analysis of the arterial and venous flow is normal in the right testis. Right epididymal head is normal in size. No right hydrocele or varicocele is seen. Right epididymal Doppler flow is normal. Small echogenic focus in the right scrotum, could represent an appendix epididymis. LEFT: Left testicle measures 4.4 x 1.7 x 2.9 cm, volume 11 mL. No focal testicular parenchymal lesions are visualized. Spectral Doppler analysis of the arterial and venous flow is normal in the left testis. Small echogenic focus measuring 0.3 x 0.1 x 0.2 cm, could reflect a scrotal roger. Left epididymal head is normal in size. No left hydrocele or varicocele is seen. Left epididymal Doppler flow is normal. US/US scrotum IMPRESSION: 1. No evidence of acute findings in the testicles. No sonographic evidence of torsion. Clinically correlate 2. Small echogenic focus in the left scrotum measuring 0.3 cm, could reflect a scrotal roger. Electronically signed by: Bhanu Bills MD 03/18/2025 05:09 PM EDT
--- NOTE | ~2025-03-18 | US_ITS ---
EXAMINATION: US RETROPERITONEUM HISTORY: R39.12 - Poor urinary stream TECHNIQUE: Real-time grayscale ultrasound imaging of the kidneys was performed and images were reviewed. COMPARISON: There are no prior studies available for comparison. FINDINGS: Right kidney: The right kidney measures 12.5 x 6.3 x 6.3 cm. Renal parenchymal echotexture and thickness are normal. There are no masses. There is a probable extrarenal pelvis. Punctate echogenic foci could represent calculi or calcified vessels. Left Kidney: The left kidney measures 11.8 x 6.6 x 6.0 cm. There is a probable hypertrophied column of Ramos. Renal parenchymal echotexture and thickness are otherwise normal. There are no masses. There is no hydronephrosis or renal calculi. The urinary bladder is unremarkable. Bilateral ureteral jets are identified. Before voiding, the urinary bladder measured 10.6 x 8.1 x 9.8 cm, for an estimated volume of 441 mL. After voiding, the urinary bladder measured 4.6 x 2.1 x 5.7 cm, for an estimated volume of 28 mL. The prostate measures 3.3 x 3.4 x 3.6 cm, for an estimated volume of 21.1 mL. There is a 1.5 cm hypoechoic area within the prostate, of uncertain significance. US/US retroperitoneal comp IMPRESSION: 1. Possible tiny right renal calculi versus calcified vessels. 2. Post void bladder residual of 28 mL. 3. Prostate volume of 21.1 mL. 1.5 cm hypoechoic area in the prostate, of uncertain significance. Correlation with PSA level is suggested. Electronically signed by: Johny Smith MD 03/21/2025 07:06 AM EDT
--- OUTSIDE RECORDS SUMMARY | 2025-03-18 14:25 | XMS_ITS | Encounter Summary ---
Author Organization [employer] Address [address] [place] [address] 7 [place] [address] Care Team Providers Care Project Management Specialist Name Role Phone Angelica Henley [facility] Primary Care Provider [phone] Reason for Visit * Reason Comments Med Refill Encounter Details Date Type Department Care Team (Late Contact Info) Description 12/20/2022 Refill [facility] MEDICINE [address] [place] [address] Peterson Black MD [address] [place] [address] Uncomplicated opioid dependence (CMS/HCC) Social History Tobacco [...] Upcoming Encounters Date Type Department Care Team ([facility] Contact Info) Description 04/14/2025 3:00 PM EDT Office Visit [facility] [address] [place] [address] Marychuy Fam MD [address] [place] [address] 04/29/2025 2:45 PM EST Office Visit [facility] [address] [place] [address] Angelica Henley [facility] [address] [place] [address] 07/05/2025 1:30 PM EST Office Visit [facility] OPTOM[facility] [address] [place], [place] [phone] Altagracia Simmons, OD [address] [place] [address] documented as of this encounter Visit Diagnoses Diagnosis Uncomplicated opioid dependence (CMS/HCC) (HCC) documented in this encounter Care Teams Project Management Specialist Relationship Specialty Start Date End Date Angelica Henley FNP [address] [place] [phone] PCP - General Family Medicine 11/02/21 documented as of this encounter
--- OUTSIDE RECORDS SUMMARY | 2025-03-18 14:25 | XMS_ITS | Encounter Summary ---
Author Organization [employer] Address [address] [facility] 7t [place] [address] Care Team Providers Care Rivet Machine Operator Name Role Phone Angelica Henley [facility] Primary Care Provider [phone] Reason for Visit * Reason Onset Date Comments Nurse Triage 12/26/2022 Encounter Details Date Type Department Care Team (Late st Contact Info) Description 12/26/2022 Telephone [facility] MEDICINE [address] [place] [address] [facility] [address] [place] [address] Nurse Triage Social History Tobacco Use Types Packs/Day Years Used Date Smoking Tobacco: Never Assessed Sex and Gender Information Value Date Recorded Sex Assigned at Male 04/15/2022 10:39 AM EDT Legal Sex Male 10:39 AM EDT Gender Identity Male 04/15/2022 10:39 AM EDT Sexual Orientation Straight 04/15/2022 10 :39 AM EDT documented as of this encounter Miscellaneous Notes * Telephone Encounter - Renuka Lopez RN - 12/26/2022 3:14 PM EDT Triage call with [employer] [facility] Bill Processor ID [id number] Pt reports dizziness for almost a month [...] accepted this outcome Please contact pt at [phone] (Icelandic speaker) documented in this encounter Plan of Treatment Upcoming Encounters Date Type Department Care Team (Late st Contact Info) Description 04/14/2025 3:00 PM EDT Office Visit [facility] MEDICINE [address] [place] [address] Marychyu Fam MD [address] [place] [address] 04/29/2025 2:45 PM EST Office Visit [facility] [address] [place] [address] Angelica Henley FNP [address] [place] [address] 07/05/2025 1:30 PM EST Office Visit [facility] [address] [place] [address] Altagracia Simmons, OD [address] [place] [address] documented as of this encounter Visit Diagnoses Not on filedocumented in this encounter Care Teams Rivet Machine Operator Relationship Specialty Start Date End Date Angelica Henley FNP [address] [place] [address] PCP - General Family Medicine 11/02/21 documented as of this encounter
--- OUTSIDE RECORDS SUMMARY | 2025-03-18 14:25 | XMS_ITS | Encounter Summary ---
Author Organization [employer] Address [address] [facility] 7t [place] [address] Care Team Providers Care Track Template Maker Name Role Phone Angelica Henley [employer] [facility] Primary Care Provider Reason for Visit * Reason Comments Med Refill Encounter Details Date Type Department Care Team ([facility] st Contact Info) Description 01/15/2024 Refill [facility] MEDICINE [address] [place] [address] Marychuy Fam MD [address] [place] [address] Uncomplicated opioid dependence (CMS/HCC) Social History Tobacco [...] Description 04/14/2025 3:00 PM EDT Office Visit [facility] MEDICINE [address] [place] [address] Marychuy Fam MD [address] [place] [address] 04/29/2025 2:45 PM EST Office Visit [facility] MEDICINE [address] [place] [address] Angelica Henley [facility] [address] [place] [address] 07/05/2025 1:30 PM EST Office Visit [facility] OPTOMETRY [address] [place] [address] Tarka, Altagracia, OD [address] [place] [address] documented as of this encounter Visit Diagnoses Diagnosis Uncomplicated opioid dependence (CMS/HCC) (HCC) documented in this encounter Care Teams Track Template Maker Relationship Specialty Start Date End Date Angelica Henley [facility] [address] [place] [phone] PCP - General Family Medicine 11/02/21 documented as of this encounter
--- OUTSIDE RECORDS SUMMARY | 2025-03-18 14:25 | XMS_ITS | Patient Health Record ---
Author Organization [facility] Address [address] [facility], [address] [place] [address] Support Name Relationship Address Phone Venancio Chakraborty Guarantor Unknown Reason For Referral No Information Plan Of Treatment No Information
--- OUTSIDE RECORDS SUMMARY | 2025-03-18 14:25 | XMS_ITS | Encounter Summary ---
Author Organization [employer] Address [address] [place] [address] 7 [place] [address] Care Team Providers Care Dental Biller Name Role Phone [facility] Primary Care Provider [phone] Reason for Visit * Reason Comments Med Refill Encounter Details Date Type Department Care Team ([facility] Contact Info) Description 08/13/2023 Refill [facility] MEDICINE [address] [place] [address] [facility] [address] [place] [address] Opioid type dependence, continuous (CMS/HCC) Social History [...] Upcoming Encounters Date Type Department Care Team ([facility] Contact Info) Description 04/14/2025 3:00 PM EDT Office Visit [facility] MEDICINE [address] [place] [address] Marychuy Fam MD [address] [place] [address] 04/29/2025 2:45 PM EST Office Visit [facility] MEDICINE [address] [place] [address] [facility] [address] [place] [address] 07/05/2025 1:30 PM EST Office Visit [facility] OPTOMETRY [address] [place], [place] [phone] Altagracia Simmons, OD [address] [place] [address] documented as of this encounter Visit Diagnoses Diagnosis Opioid type dependence, continuous (CMS/HCC) (HCC) Opioid type dependence, continuous documented in this encounter Care Teams Dental Biller Relationship Specialty Start Date End Date Angelica Henley FNP [address] [place] [address] [phone] PCP - General Family Medicine 11/02/21 documented as of this encounter
--- OUTSIDE RECORDS SUMMARY | 2025-03-18 14:26 | XMS_ITS | Encounter Summary ---
Author Organization [employer] Address [address] [place] [address] 7 [place] [address] Care Team Providers Care Data Officer Name Role Phone [place] [facility] Primary Care Provider [phone] Reason for Visit * Reason Comments Med Refill Encounter Details Date Type Department Care Team (Late Contact Info) Description 06/19/2023 Refill [facility] MEDICINE [address] [place] [address] [address] Social History Tobacco Use Types Packs/Day Years [...] Department Care Team (Late Contact Info) Description 04/14/2025 3:00 PM EDT Office Visit [facility] MEDICINE [address] [place] [address] Marychuy Fam MD [address] [place] [address] 04/29/2025 2:45 PM EST Office Visit [facility] MEDICINE [address] [place] [address] [place] [address] [address] 07/05/2025 1:30 PM EST Office Visit [facility] OPTOMETRY [address] [place], [place] [phone] Altagracia Simmons OD [address] [place] [address] documented as of this encounter Visit Diagnoses Not on filedocumented in this encounter Care Teams Data Officer Relationship Specialty Start Date End Date Angelica Henley FNP [address] [place] [address] [phone] PCP - General Family Medicine 11/02/21 documented as of this encounter
--- OUTSIDE RECORDS SUMMARY | 2025-03-18 14:26 | XMS_ITS | Encounter Summary ---
Author Organization [employer] Address [address] [place] [address] 7t [place] [address] Care Team Providers Care Material Mover Name Role Phone Angelica Henley DRIVE WORKER Primary Care Provider [phone] Encounter Details Date Type Department Care Team (Late Contact Info) Description 05/17/2022 Orders Only [facility] MEDICINE [address] [place] [address] Peterson Black MD [address] [place] [address] [phone] Opioid type dependence, continuous (CMS/[facility]) Social History Tobacco Use Types Packs/Day Years [...] Description 04/14/2025 3:00 PM EDT Office Visit [facility] MEDICINE [address] [place] [address] Marychuy Fam MD [address] [place] [address] 04/29/2025 2:45 PM EST Office Visit [facility] MEDICINE [address] [place] [address] Angelica Henley FNP [address] [place], [place] [phone] 07/05/2025 1:30 PM EST Office Visit [facility] OPTOMETRY [address] [place], [place] [phone] Altagracia Simmons, OD [address] [place], [place] [phone] documented as of this encounter Visit Diagnoses Diagnosis Opioid type dependence, continuous (CMS/HCC) (HCC) Opioid type dependence, continuous documented in this encounter Care Teams Material Mover Relationship Specialty Start Date End Date Angelica Henley FNP [address] [place] [address] PCP - General Family Medicine 11/02/21 documented as of this encounter
--- OUTSIDE RECORDS SUMMARY | 2025-03-18 14:26 | XMS_ITS | Encounter Summary ---
Author Organization [employer] Address [address] [place] [address] 7 [place] [address] Care Team Providers Care Straw Hat Brusher Name Role Phone Angelica Henley [facility] Primary Care Provider [phone] Reason for Visit * Reason Comments Med Refill Encounter Details Date Type Department Care Team (Late Contact Info) Description 09/25/2023 Refill [facility] MEDICINE [address] [place] [phone] Tiburcio Horvath MD [address] [place] [phone] Uncomplicated opioid dependence (CMS/HCC) Social History Tobacco [...] Description 04/14/2025 3:00 PM EDT Office Visit [facility] MEDICINE [address] [place] [address] Marychuy Fam MD [address] [place] [address] [phone] 04/29/2025 2:45 PM EST Office Visit [facility] MEDICINE [address] [place] [phone] Angelica Henley [address] [address] 07/05/2025 1:30 PM EST Office Visit [facility] OPTOMETRY [address] [place], [place] [phone] Altagracia Simmons, OD [address] [place], [place] [phone] documented as of this encounter Visit Diagnoses Diagnosis Uncomplicated opioid dependence (CMS/HCC) (HCC) documented in this encounter Care Teams Straw Hat Brusher Relationship Specialty Start Date End Date Angelica Henley FNP [address] [place] [phone] PCP - General Family Medicine 11/02/21 documented as of this encounter
--- OUTSIDE RECORDS SUMMARY | 2025-03-18 14:26 | XMS_ITS | Encounter Summary ---
Author Organization [employer] Address [address] [facility] 7t [place] [address] Care Team Providers Care [place]ress [place] Encaser Name Role Phone [place] [facility] Primary Care Provider [phone] Encounter Details Date Type Department Care Team ([facility] st Contact Info) Description 10/05/2024 Telephone [facility] MEDICINE [address] [place] [address] [place] [facility] [address] [place] [address] Social History Tobacco Use Types Packs/Day Years [...] 3:00 PM EDT Office Visit [facility] MEDICINE [address] [place] [address] Marychuy Fam MD 230 [place] [address] 04/29/2025 2:45 PM EST Office Visit [facility] MEDICINE [address] [place] [address] Angelica Henley FNP [address] [place] [address] 07/05/2025 1:30 PM EST Office Visit [facility] OPTOMETRY [address] [place] [address] Altagracia Simmons, OD [address] [place] [address] documented as of this encounter Visit Diagnoses Not on filedocumented in this encounter Care Teams [place] Encaser Relationship Specialty Start Date End Date Angelica Henley FNP [address] [place] [phone] PCP - General Family Medicine 11/02/21 documented as of this encounter
--- OUTSIDE RECORDS SUMMARY | 2025-03-18 14:26 | XMS_ITS | Clinical Summary ---
Author Organization [employer] Address [address] [facility] 7t [place] [address] Care Team Providers Care Dietary Aide Teacher Name Role Phone Angelica Henley [facility] Primary Care Provider [phone] Allergies Active Allergy Reactions Criticality Noted Date Comments Sulfa Antibiotics Rash Low 04/21/2020 Other reaction(s): rash, rash Medications * This document contains information received from the source organization and may not represent a complete record from that organization. hydrOXYzine HCl (Atarax) 50 MG tablet take 1 Tablet by oral route 4x/day prn anxiety 07/10/19 22 Active lidocaine (Lidoderm) 5 % patch Place 1 patch on the skin. 09/28/19 22 Active tiZANidine (Zanaflex) 4 MG capsule take 1 capsule by oral route qhs x 1w then qhs prn muscle spasm 09/28/19 22 Active carbamide peroxide (Debrox) 6.5 % otic solution 5 drops every 12 (twelve) hours. 11/03/19 22 Active terbinafine (LamISIL) 1 % cream Apply topically. 12/15/19 22 Active albuterol (ProAir HFA) 108 (90 Base) MCG/ACT inhaler Inhale 2 puffs every 4 (four) hours if needed. 02/07/20 22 Active nicotine polacrilex (Commit) 4 MG lozenge Take 1 tablet by mouth every 2 (two) hours. 02/08/20 22 Active naloxone (Narcan) 4 mg/0.1 mL nasal [...] everyday and wear for 16-24 hrs. Active Spacer/Aero-Hold ing Chambers device For use with proair Active doxepin (SINEquan) 150 MG capsule Take 1 capsule (150 mg) by mouth at bedtime. 5 capsule 06/13/20 23 Active Blood Pressure kit 1 kit in the morning. 1 kit 07/28/19 24 Active Symbicort 80-4.5 MCG/ACT inhaler INHALE 2 PUFFS BY MOUTH TWICE DAILY IN THE MORNING AND IN THE EVENING RINSE MOUTH AFTER USING. 10.2 g 3 09/12/19 24 Active gabapentin (Neurontin) 400 MG capsuleIndicatio ns:Insomnia, unspecified type TAKE 1 CAPSULE BY MOUTH EVERY DAY AT BEDTIME 30 capsule 11/21/19 24 Active buprenorphine ER (Sublocade) 300 mg/1.5mL injectionIndicat ions:Opioid dependence, uncomplicated (CMS/HCC) ([facility]) Inject 1.5 mL (1 each) under the skin every month to absorb continually. 1.5 mL 1 01/19/20 24 Active ibuprofen 600 MG tablet Take 1 tablet (600 mg) by mouth every 6 (six) hours if needed for mild pain for up to 20 doses. 20 tablet 02/25/20 24 Active mirtazapine (Remeron) 7.5 MG tablet Take 7.5 mg by mouth at bedtime. 04/22/20 24 Active varenicline (Chantix Continuing Month Hosea) 1 MG tabletIndication s:Tobacco use Take 1 tablet (1 mg) by mouth 2 times daily. Take with full glass of water. 60 tablet 2 07/30/19 25 Active tamsulosin (Flomax) 0.4 MG 24 hr capsuleIndicatio ns:Lower urinary tract symptoms Take 1 capsule (0.4 mg) by mouth Once per day. 30 capsule 1 10/09/19 25 Active Suboxone 12-3 MG per sublingual filmIndications: Uncomplicated opioid dependence (CMS/HCC) (HCC) Place 1 Film under the tongue [address] 1 film by sublingual route 2 times every day and allow to dissolve slowly in mouth without chewing or swallowing. 56 Film 1 02/16/20 25 2024 Active cloNIDine (Catapres) 0.1 MG tabletIndication s:Opioid type dependence, continuous (CMS/HCC) (HCC) TAKE 1 TABLET BY MOUTH THREE TIMES DAILY 90 tablet 1 03/07/20 25 Active cloNIDine (Catapres) 0.1 MG tabletIndication s:Opioid type dependence, continuous (CMS/HCC) (HCC) TAKE 1 TABLET BY MOUTH THREE TIMES DAILY 90 tablet 1 02/13/20 24 2024 Discontinued Hospital, Clinic, or Other Facility Administered Medication Ordered Dose Route Frequency Start Date End Date Status ibuprofen tablet 800 mgIndications:Injury of finger of left hand, initial encounter 800 mg PO Once 12/31/2023 Active Active Problems Problem Noted Date Diagnosed Date Generalized anxiety disorder with panic attacks 12/14/2024 MDD (major depressive disorder), severe (CMS/HCC ) 12/13/2024 Dental caries 01/22/2024 Generalized gingival recession 01/22/2024 Xerostomia 01/22/2024 Chronic low back pain 05/04/2022 Greater trochanteric pain syndrome 05/04/2022 Resolved Problems Problem Noted Date Diagnosed Date Resolved Date Dental plaque 01/22/2024 10/11/2024 Severe dental caries 01/14/2024 025 Cough 05/04/2022 10/11/2024 Shoulder strain 05/04/2022 10/11/2024 Encounters Date Type Department Care Team Description 03/07/2025 Refill [facility] MEDICINE [address] [place] [address] Angelica Henley FNP Opioid type dependence, continuous (CMS/HCC) 02/17/2025 2:30 PM EDT Office Visit [facility] MEDICINE [address] [place] [address] Marychuy Fam MD Uncomplicated opioid dependence (CMS/HCC) (Primary Dx) 02/17/2025 Travel 02/10/2025 Refill [facility] [place] [address] Marychuy Fam MD Uncomplicated opioid dependence (CMS/HCC) 01/20/2025 Telephone [facility] [place] [address] Angelica Henley FNP chart prep 01/20/2025 Telephone [facility] [address] Angelica Henley FNP 01/12/2025 Patient Outreach [facility] [place] [address] Angelica Henley FNP Pre-visit Planning (SDOH screening completed on 07/22/2024) 01/06/2025 3:45 PM EDT Office Visit [facility] [place] [address] Marychuy Fam MD Uncomplicated opioid dependence (CMS/HCC) (Primary Dx); Current moderate episode of major depressive disorder without prior episode (CMS/HCC) 01/06/2025 Refill [facility] [place] [address] Marychuy Fam MD Uncomplicated opioid dependence (CMS/HCC) 01/06/2025 Travel 01/04/2025 Telephone [facility] [place] [address] Sebastian Poole, JOSE R 12/28/2024 Refill [facility] [place] [address] Angelica Henley FNP from Last 3 Months Immunizations Immunization Administration Dates Next Due Hep B, adult 12/14/2021 INFLUENZA INJECTABLE QUADRIV ALANT CCIIV4 MDCK Multi-dose vial 04/06/2019 Influenza injectable quadriv alent IIV4 with preservative 03/04/2017 Influenza injectable quadrivalent preservative f ree 05/01/2018 Influenza, IIV3, injectable 04/14/2014 Influenza, seasonal, injectable, preservative fr ee 04/26/2024 Tdap 12/31/2023,12/14/2021 Social History Tobacco Use Types Packs/Day Years Used Date Smoking Tobacco: Every Day Cigarettes Passive Smoke Exposure: Current Tobacco Cessation:Ready to Q uit: Not Asked; Counseling Given: Not Answered Alcohol Use Standard Drinks/Week Comments Never 0 (1 standard drink = 0.6 oz pur e alcohol) Depression Answer Date Recorded Patient Health Questionnaire-9 Score 25 12/13/2024 Patient Health Questionnaire-9 Score 25 12/13/2024 Last PHQ-9: Questionnaire Data Not on file 0 12/13/2024 Housing Stability Answer Date Recorded What is your housing situation today? I have carriebacilio saenz 10/03/[address] you [...] off services in your home? No 10/03/2023 Depression Answer Date Recorded Patient Health Questionnaire-2 Score 6 12/13/2024 Internet Access Answer Date Recorded Internet Access [...] Sign Reading Time Taken Comments Blood Pressure 117/72 10/08/2024 2:32 PM EDT Pulse 74 10/08/2024 2:32 PM EDT Temperature 36.7 C (98.1 F) 10/08/2024 2:32 PM EDT Respiratory Rate 20 09/03/2024 1:54 PM EDT Oxygen Saturation 97% 07/30/2024 1:22 PM EST Inhaled Oxygen Concentration - - Weight 94.3 kg (208 lb) 10/08/2024 2:32 PM EDT Height 182.9 cm (6') 10/08/2024 2:32 PM EDT Body Mass Index 28.21 10/08/2024 2:32 PM EDT Plan of Treatment Upcoming Encounters Date Type Department Care Team (Late st Contact Info) Description 04/14/2025 3:00 PM EDT Office Visit [facility] MEDICINE [address] [place] [address] Marychuy Fam MD [address] [place] [address] 04/29/2025 2:45 PM EST Office Visit [facility] MEDICINE [address] [place] [address] ThomastonAngelica FNP [address] [place] [address] 07/05/2025 1:30 PM EST Office Visit [facility] OPTOMETRY [address] [place] [address] Altagracia Simmons, OD [address] [place] [address] Health Maintenance Due Date Last Done Comments CT Colonography 1977 Colonoscopy 1977 Colorectal Cancer Screening 1977 FIT DNA/Cologuard 1977 FIT 1977 FOBT 1977 Sigmoidoscopy 1977 Disability Screening 1977 Family Planning (PISQ) 1992 Pneumococcal Vaccine: Pediatrics (0 to 5 Years) and At-Risk Patients (6 to 49) Years (1 of 2 - PCV) 1996 Hepatitis B Vaccines (2 of 3 - 19+ 3-dose series) 01/11/2022 12/14/2021 Dental Oral Exam 07/25/2024 01/22/2024 Dental X-Ray: Bitewings 01/22/2025 01/22/2024 Dental Prophylaxis 01/24/2025 07/26/2024, 01/22/2024 COVID-19 Vaccine ( season) 2025 Influenza Vaccine (#1) 2025 , 04/06/2019, 05/01/2018, Additional history exists Depression Monitoring 06/14/2025 12/13/2024, 025 SDOH Screening 07/22/2025 07/22/2024 Alcohol/Substance Use Screening 07/30/2025 07/30/2024 Tobacco Screening 12/09/2025 12/09/2024 Dental X-Ray: Full Mouth 01/22/2027 01/22/2024 Zoster Vaccines (1 of 2) 09/09/2027 Lipid Panel 06/28/2029 06/28/2024, 12/11/2021 DTaP/Tdap/Td Vaccines (3 - Td or Tdap) 12/30/2033 12/31/2023, 12/14/2021 RSV Patients and Patients Aged 60 years or older (1 - 1-dose 75+ series) 2052 Hepatitis C Screening Completed 06/28/2024, 022 HIV Screening Completed 09/17/2024, 06/16, 07/24/2021 HIB Vaccines Aged Out No longer eligi [...] patient's age to complete this topic Meningococcal B Vaccine Aged Out No l onger eligible based on patient's age to complete [...] Procedure Name Priority Date/Time Associated Diagnosis Comments POCT AYDEN-14 URINE DRUG SCREEN Routine 01/06/2025 3:08 PM EDT Uncomplicated opioid dependence (CMS/HCC) HIV 1/2 ANTIGEN/ANTIBODY, FOURTH GENERATION W/RFL Routine 09/17/2024 3:40 PM EDT Healthcare maintenance PROPHYLAXIS - ADULT Routine 07/26/2024 3 :00 PM EST HEPATITIS C AB W/REFL TO HCV RNA, QN, PCR Routine 06/28/2024 1:45 PM EST LIPID PANEL, STANDARD Routine 06/28/2024 1:45 PM EST Class 1 obesity due to excess calories with body mass index (BMI) of 31.0 to 31.9 in adult, unspecified whether serious comorbidity present INTRAORAL - COMPLETE SERIES OF RADIOGRAPHIC IMAGES Routine 01/22/2024 2:00 PM EDT Dental caries Dental plaque Generalized gingival recession Xerostomia COMPREHENSIVE ORAL EVALUATION - NEW OR ESTABLISHED PATIENT Routine 01/22/2024 2:00 PM EDT from Last 3 Months or Most Recently Relevant to Health Maintenance Results * (ABNORMAL) POCT AYDEN-14 Urine Drug Screen (01/06/2025 3:08 PM EDT) THC Positive(A) Negative Cocaine Screen, Urine Negative Negative Opiate Screen, Urine Negative Negative Methamphetamine Screen Urine Negative Negative Amphetamine Screen, Urine Negative Negative Benzodiazepines Screen, Urine Negative Negative Barbiturate Screen, Urine Negative Negative Methadone Screen, Urine Negative Negative Buprenophine Screen, Urine Positive(A) Negative TCA, Urine Positive(A) Negative MDMA Urine Negative Negative ng/mL Oxycodone Screen, Urine Negative Negative Phencyclidine (PCP), Urine Negative Negative Fentanyl, Urine Negative Negative Urine Urine specimen obtained by clean catch procedure / Unknown 01/06/2025 3:08 PM EDT Marychuy Fam MD POINT OF CARE TEST ENTER/RHONDA T ORDERABLES Final Result * HIV-1/2 Antigen and Antibodies, Fourth Generation, with Reflexes (09/17/2024 3:40 PM EDT) HIV AB/AG Nonreactive Nonreactive [facility] Comment:HIV-1 p24 Ag and/or HIV-1/HIV-2 Ab not detected.A test result that is nonreactive does not exclude thepossibility of exposure to or infection with HIV-1 and/orHIV-2. Nonreactive results in this assay for individualswith prior exposure to HIV-1 and/or HIV-2 may be due toantigen and antibody levels that are below the limit ofdetection of this assay.The [employer] HIV Ag/Ab Combo assay result andsupplemental assay results should be interpreted inconjunction with the patient's clinical presentation,history and other laboratory results. If the results areinconsistent with clinical evidence, additional testing issuggested to confirm the result. Blood Venous blood specimen / Unknown 09/17/2024 3:40 PM EDT 09/17/2024 4:14 PM EDT [facility] LAB BLOOD ORDERABLES Final Re sult Performing Organization Address [facility] Co de Phone Number [facility] [address] [place] [phone] * Hepatitis C Antibody with Reflex to HCV, RNA, Quantitative, Real-Time PCR (06/28/2024 1:45 PM EST) Hepatitis C Antibody Nonreactive Nonreactive [facility] Comment:Antibodies to HCV no t detected; does not exclude early acuteHCV infection. 06/28/2024 1:45 PM EST 06/28/2024 4:09 PM EST Marychuy Fam MD LAB BLOOD ORDERABLES Final R esult Performing Organization Address [facility]/ZIP Co de Phone Number [facility] [address] [place] [phone] * (ABNORMAL) Lipid Panel, Standard (06/28/2024 1:45 PM EST) Triglycerides 78 <150 mg/dL [facility] Comment:Desirable Triglyceri de: less than 150 mg/dLBorderline High Triglyceride 150-199 mg/dLHigh Triglyceride: 200-499 mg/dLVery High Triglyceride: greater than or equal to 5OO mg/dL Cholesterol 169 <200 mg/dL [facility] Comment:Desirable Cholestero l: less than 200 mg/dLBorderline High Cholesterol: 200-239 mg/dLHigh Cholesterol: greater than 239 mg/dL LDL Cholesterol Calculated 100(H) <100 mg/dL [facility] Comment:Desirable LDL: less than 100 mg/dLNear Optimal/Above Optimal LDL: 110- 129 mg/dLBorderline High LDL: 130-159 mg/dLHigh LDL: 160-189 mg/dLVery High LDL: greater than or equal to 190 mg/dL HDL Cholesterol 54 >40 mg/dL [facility] Comment:Desirable HDL: great er than 40 mg/dL Note: This HDL assay may give artificially low results in patients with liver disease. Blood Venous blood specimen / Unknown 06/28/2024 1:45 PM EST 06/28/2024 4:09 PM EST [facility] LAB BLOOD ORDERABLES Final Re sult [facility] Organization Address City/State/ZIP Co de Phone Number [facility] [address] [place] [phone] from Last 3 Months or Most Recently Relevant to Health Maintenance Insurance [facility] D[facility] - HSN PARTIAL (MEDICAID) [place], [place] DENTAL - HSN PARTIAL (MEDICAID) * Guarantor: Venancio Chakraborty Account Type Relation to Patient Date of Phone Billing Address Personal/Family Self [place], [place] Care Teams Dietary Aide Teacher Relationship Specialty Start Date End Date Angelica Henley FNP [address] [place] [address] PCP - General Family Medicine 11/02/21
== END 2025-03-18 14:21 | disposition home or self-care (01) ==
LOC: HO.US 14:20
PROVIDERS: PCP Registered Nurse; Visit Provider Nurse Practitioner Family
DX: N50.82 Scrotal pain (principal); R39.12 Poor urinary stream; R39.14 Feeling of incomplete bladder emptying
CPT/HCPCS: 76770; 76870

== ENCOUNTER → 2025-03-18 14:21 | Outpatient (BNV) | payer OTHER, SELFPAY | PROVIDERS: PCP Registered Nurse; Visit Provider Radiology Diagnostic Ultrasound | DX: N50.82 Scrotal pain (principal) | CPT/HCPCS: 76870 ==

== ENCOUNTER 2025-03-28 13:11 | Outpatient (REF) | payer OTHER, SELFPAY ==
--- OUTSIDE RECORDS SUMMARY | 2025-03-28 13:14 | XMS_ITS | Encounter Summary ---
Author Organization [employer] Address [address] [place] [address] 7 [place] [address] Care Team Providers Care Cpc Name Role Phone Lory [facility] Primary Care Provider [phone] Reason for Visit * Reason Comments Med Refill Encounter Details Date Type Department Care Team ([facility] Contact Info) Description 08/13/2023 Refill [facility] MEDICINE [address] [place] [phone] [facility] [address] [place] [address] Opioid type dependence, continuous (CMS/HCC) Social History [...] Upcoming Encounters Date Type Department Care Team ([facility] Contact Info) Description 04/14/2025 3:00 PM EDT Office Visit [facility] MEDICINE [address] [place] [phone] Marychuy Fam MD [address] [place] [phone] 04/29/2025 2:45 PM EST Office Visit [facility] MEDICINE [address] [place] [phone] [facility] [address] [place] [address] 07/05/2025 1:30 PM EST Office Visit [facility] OPTOMETRY [address] [place], [place] [phone] Altagracia Simmons, OD [address] [place] [address] documented as of this encounter Visit Diagnoses Diagnosis Opioid type dependence, continuous (CMS/HCC) (HCC) Opioid type dependence, continuous documented in this encounter Care Teams Cpc Relationship Specialty Start Date End Date Angelica Henley FNP [address] [place] [address] [phone] PCP - General Family Medicine 11/02/21 documented as of this encounter
--- OUTSIDE RECORDS SUMMARY | 2025-03-28 13:14 | XMS_ITS | Encounter Summary ---
Author Organization [employer] Address [address] [place] [address] 7 [place] [address] Care Team Providers Care Communications Equipment Operator Name Role Phone [facility] Primary Care Provider [phone] Reason for Visit * Reason Comments Med Refill Encounter Details Date Type Department Care Team (Late Contact Info) Description 06/19/2023 Refill [facility] MEDICINE [address] [place] [address] [address] Social History Tobacco Use Types Packs/Day Years [...] Description 04/14/2025 3:00 PM EDT Office Visit [facility] MEDICINE [address] [place] [address] Marychuy Fam MD [address] [place] [address] 04/29/2025 2:45 PM EST Office Visit [facility] MEDICINE [address] [place] [address] [place] [address] [address] 07/05/2025 1:30 PM EST Office Visit [facility] OPTOMETRY [address] [place], [place] [phone] Altagracia Simmons OD [address] [place] [address] documented as of this encounter Visit Diagnoses Not on filedocumented in this encounter Care Teams Communications Equipment Operator Relationship Specialty Start Date End Date Angelica Henley FNP [address] [place] [address] [phone] PCP - General Family Medicine 11/02/21 documented as of this encounter
--- OUTSIDE RECORDS SUMMARY | 2025-03-28 13:14 | XMS_ITS | Encounter Summary ---
Author Organization [employer] Address [address] [place] [address] 7 [place] [address] Care Team Providers Care Gasser Machine Operator Name Role Phone Angelica Henley [facility] Primary Care Provider [phone] Reason for Visit * Reason Comments Med Refill Encounter Details Date Type Department Care Team (Late Contact Info) Description 12/20/2022 Refill [facility] MEDICINE [address] [place] [phone] Peterson Black MD [address] [place] [phone] Uncomplicated opioid dependence (CMS/HCC) Social History Tobacco [...] Upcoming Encounters Date Type Department Care Team ([facility] Contact Info) Description 04/14/2025 3:00 PM EDT Office Visit [facility] MEDICINE [address] [place] [address] Marychuy Fam MD [address] [place] [address] 04/29/2025 2:45 PM EST Office Visit [facility] MEDICINE [address] [place] [address] Angelica Henley [facility] [address] [place] [address] 07/05/2025 1:30 PM EST Office Visit [facility] OPTOMETRY [address] [place], [place] [phone] Altagracia Simmons, OD [address] [place] [address] documented as of this encounter Visit Diagnoses Diagnosis Uncomplicated opioid dependence (CMS/HCC) (HCC) documented in this encounter Care Teams Gasser Machine Operator Relationship Specialty Start Date End Date Angelica Henley FNP [address] [place] [phone] PCP - General Family Medicine 11/02/21 documented as of this encounter
--- OUTSIDE RECORDS SUMMARY | 2025-03-28 13:14 | XMS_ITS | Encounter Summary ---
Author Organization [employer] Address [address] [facility] 7t [place] [address] Care Team Providers Care Grain Mill Products Inspector Name Role Phone Angelica Henley [employer] Primary Care Provider [phone] Reason for Visit * Reason Comments Med Refill Encounter Details Date Type Department Care Team ([facility] st Contact Info) Description 01/15/[address] [facility] MEDICINE [address] [place] [address] Marychuy Fam MD [address] [place] [address] Uncomplicated opioid dependence (CMS/HCC) Social History Tobacco [...] Description 04/14/2025 3:00 PM EDT Office Visit [facility] MEDICINE [address] [place] [address] Marychuy Fam MD [address] [place] [address] 04/29/2025 2:45 PM EST Office Visit [facility] MEDICINE [address] [place] [address] Angelica Henley [facility] [address] [place] [address] 07/05/2025 1:30 PM EST Office Visit [facility] OPTOMETRY [address] [place] [address] Tarka, Altagracia, OD [address] [place] [address] documented as of this encounter Visit Diagnoses Diagnosis Uncomplicated opioid dependence (CMS/HCC) (HCC) documented in this encounter Care Teams Grain Mill Products Inspector Relationship Specialty Start Date End Date Angelica Henley [facility] [address] [place] [phone] PCP - General Family Medicine 11/02/21 documented as of this encounter
--- OUTSIDE RECORDS SUMMARY | 2025-03-28 13:14 | XMS_ITS | Encounter Summary ---
Author Organization [employer] Address [address] [facility] 7t [place] [address] Care Team Providers Care Watchstander Name Role Phone Angelica Henley [facility] Primary Care Provider [phone] Reason for Visit * Reason Onset Date Comments Nurse Triage 12/26/2022 Encounter Details Date Type Department Care Team (Late st Contact Info) Description 12/26/2022 Telephone [facility] MEDICINE [address] [place] [address] [facility] [address] [place] [address] Nurse Triage Social History Tobacco Use Types [...] 12/26/2022 3:14 PM EDT Triage call with [employer] Educational Program Director [place] [id number] Pt reports dizziness for almost a month [...] accepted this outcome Please contact pt at [phone] (Macedonian speaker) documented in this encounter Plan of Treatment Upcoming Encounters Date Type Department Care Team (Late st Contact Info) Description 04/14/2025 3:00 PM EDT Office Visit [facility] MEDICINE [address] [place] [address] Marychuy Fam MD [address] [place] [address] 04/29/2025 2:45 PM EST Office Visit [facility] MEDICINE [address] [place] [address] Angelica Henley FNP [address] [place] [address] 07/05/2025 1:30 PM EST Office Visit [facility] OPTOMETRY [address] [place] [address] Altagracia Simmons, OD [address] [place] [address] documented as of this encounter Visit Diagnoses Not on filedocumented in this encounter Care Teams Watchstander Relationship Specialty Start Date End Date Angelica Henley FNP [address] [place] [address] PCP - General Family Medicine 11/02/21 documented as of this encounter
--- OUTSIDE RECORDS SUMMARY | 2025-03-28 13:14 | XMS_ITS | Patient Health Record ---
Author Organization [facility] Address [address] [facility], [address] [place] [address] Support Name Relationship Address Phone Venancio Chakraborty Guarantor Unknown [phone] Reason For Referral No Information Plan Of Treatment No Information
--- OUTSIDE RECORDS SUMMARY | 2025-03-28 13:15 | XMS_ITS | Encounter Summary ---
Author Organization [employer] Address [address] [facility] 7t [place] [address] Care Team Providers Care Channel Layer Name Role Phone [facility] Primary Care Provider [phone] Encounter Details Date Type Department Care Team ([facility] st Contact Info) Description 10/05/[address] [facility] MEDICINE [address] [place] [address] [place] [facility] [address] [place] [address] Social History Tobacco Use Types Packs/Day Years [...] Description 04/14/2025 3:00 PM EDT Office [facility] MEDICINE [address] [place] [address] Marychuy Fam MD 230 [place] [address] 04/29/2025 2:45 PM EST Office [facility] MEDICINE [address] [place] [address] Angelica Henley FNP [address] [place] [address] 07/05/2025 1:30 PM EST Office Visit [facility] OPTOMETRY [address] [place] [address] Altagracia Simmons, OD [address] [place] [address] documented as of this encounter Visit Diagnoses Not on filedocumented in this encounter Care Teams Channel Layer Relationship Specialty Start Date End Date Angelica Henley FNP [address] [place] [phone] PCP - General Family Medicine 11/02/21 documented as of this encounter
--- OUTSIDE RECORDS SUMMARY | 2025-03-28 13:15 | XMS_ITS | Encounter Summary ---
Author Organization [employer] Address [address] [place] [address] 7 [place] [address] Care Team Providers Care Oil Scout Name Role Phone Angelica Henley [facility] Primary Care Provider [phone] Reason for Visit * Reason Comments Med Refill Encounter Details Date Type Department Care Team (Late Contact Info) Description 09/25/2023 Refill [facility] MEDICINE [address] [place] [phone] Tiburcio Horvath MD [address] [place] [address] Uncomplicated opioid dependence (CMS/HCC) Social History Tobacco [...] 3:00 PM EDT Office Visit [facility] MEDICINE [address] [place] [address] Marychuy Fam MD [address] [place] [address] [phone] 04/29/2025 2:45 PM EST Office Visit [facility] MEDICINE [address] [place] [address] Angelica Henley [address] [address] 07/05/2025 1:30 PM EST Office Visit [facility] OPTOMETRY [address] [place], [place] [phone] Altagracia Simmons, OD [address] [place], [place] [phone] documented as of this encounter Visit Diagnoses Diagnosis Uncomplicated opioid dependence (CMS/HCC) (HCC) documented in this encounter Care Teams Oil Scout Relationship Specialty Start Date End Date Angelica Henley FNP [address] [place] [address] PCP - General Family Medicine 11/02/21 documented as of this encounter
--- OUTSIDE RECORDS SUMMARY | 2025-03-28 13:15 | XMS_ITS | Clinical Summary ---
Author Organization [employer] Address [address] [facility] 7[address] [place] [address] Care Team Providers Care Golf Superintendent Name Role Phone Angelica Henley [facility] Primary Care Provider [phone] Allergies Active Allergy Reactions Criticality Noted Date [...] 300 mg/1.5mL injectionIndicat ions:Opioid dependence, uncomplicated (CMS/HCC) ([facility]) Inject 1.5 mL (1 each) under the [...] Encounters Date Type Department Care Team Description 03/18/2025 Orders Only [facility] External Provider, [facility] 03/07/[address] [facility] [address] [place] [address] Angelica Henley FNP Opioid type dependence, continuous (CMS/HCC) 02/17/2025 2:30 PM EDT Office Visit [facility] [address] [place] [address] Marychuy Fam MD Uncomplicated opioid dependence (CMS/HCC) (Primary Dx) 02/17/2025 Travel 02/10/[address] [facility] [place] [address] Marychuy Fam MD Uncomplicated opioid dependence (CMS/HCC) 01/20/[address] [facility] [address] [place] [phone] Angelica Henley FNP chart prep 01/20/[address] [facility] [address] [place] [phone] Angelica Henley FNP 01/12/2025 Patient Outreach [address] [address] Angelica Henley FNP Pre-visit Planning (SDOH screening completed on 07/22/2024) 01/06/2025 3:45 PM EDT Office Visit [facility] [place] [address] Marychuy Fam MD Uncomplicated opioid dependence (CMS/HCC) (Primary Dx); Current moderate episode of major depressive disorder without prior episode (CMS/HCC) 01/06/[address] [facility] [place] [address] Marychuy Fam MD Uncomplicated opioid dependence (CMS/HCC) 01/06/2025 Travel 01/04/[address] [facility] [address] [place] [phone] Sebastian Poole, JOSE R 12/28/[address] [facility] [address] [place] [phone] Angelica Henley FNP from Last 3 Months [...] 04/14/2025 3:00 PM EDT Office Visit [facility] [address] [place] [address] Marychuy Fam MD [address] [place] [address] 04/29/2025 2:45 PM EST Office Visit [facility] [address] [place] [address] [place] CityAngelica ray FNP [address] [place] [address] 07/05/2025 1:30 PM EST Office Visit [facility] OPTOMETRY [address] [place] [address] Altagracia Simmons, OD [address] [place] [address] Health Maintenance Due Date Last Done Comments [...] Procedure Name Priority Date/Time Associated Diagnosis Comments US SCROTUM Routine 03/18/2025 3:51 PM EDT US RETROPERITONEAL COMPLETE Routine 03/18/2025 2:47 PM EDT POCT AYDEN-14 URINE DRUG SCREEN Routine 01/06/2025 [...] Recently Relevant to Health Maintenance Results * US Scrotum (03/18/2025 3:51 PM EDT) Anatomical Region Laterality Modality Body Ultrasound 03/18/2025 3:51 PM EDT Narrative 03/18/2025 5:12 PM EDT [place] [address] Ultrasound Report Signed Patient: Venancio Navarrete MR#: [id number] : 1975 Acct:[id number] Age/Sex: 49 / M ADM Date: 03/18/25 Loc: HO. Attending Dr: Nay MEDINA Ordering Physician: Nay Lutz Date of Service: 03/18/25 Procedure(s): US scrotum Accession Number(s): [id number] cc: Nay Lutz; [facility] Reason for Exam: N50.82 - Scrotal pain EXAMINATION: US SCROTUM CLINICAL INFORMATION: Scrotal pain. COMPARISON: None available. TECHNIQUE: A sonogram of the scrotum was performed assessing morejon-scale appearance and color Doppler flow. Spectral Doppler analysis of the arterial and venous flow were performed in the testes bilaterally. FINDINGS: RIGHT: Right testicle measures 4.2 x 1.7 x 3.4 cm, volume 13 mL. No focal testicular parenchymal lesions are visualized. Spectral Doppler analysis of the arterial and venous flow is normal in the right testis. Right epididymal head is normal in size. No right hydrocele or varicocele is seen. Right epididymal Doppler flow is normal. Small echogenic focus in the right scrotum, could represent an appendix epididymis. LEFT: Left testicle measures 4.4 x 1.7 x 2.9 cm, volume 11 mL. No focal testicular parenchymal lesions are visualized. Spectral Doppler analysis of the arterial and venous flow is normal in the left testis. Small echogenic focus measuring 0.3 x 0.1 x 0.2 cm, could reflect a scrotal roger. Left epididymal head is normal in size. No left hydrocele or varicocele is seen. Left epididymal Doppler flow is normal. US/US scrotum IMPRESSION: 1. No evidence of acute findings in the testicles. No sonographic evidence of torsion. Clinically correlate 2. Small echogenic focus in the left scrotum measuring 0.3 cm, could reflect a scrotal roger. Electronically signed by: Bhanu Bills MD 03/18/2025 05:09 PM EDT Dictated By: Bhanu Bills MD Signed By: <Electronically signed by Bhanu Bills MD in OV> 03/18/25 1709 DD/ 1551 TD/TT: 03/18/25 1615 Heat Pump Installer: ADALI Procedure Note Donotuseinterpreter, Image - 03/18/[address] [address] Ultrasound Report Signed Patient: Venancio Navarrete#: M [id number] : 1975Acct:[id number] Age/Sex: 49 / MADM Date: 03/18/25 Loc: HO.US Attending Dr: Nay JOHN Ordering Physician: Nay Lutz Date of Service: 03/18/25 Procedure(s): US scrotum Accession Number(s): [id number] cc: Nay Lutz; [facility] Reason for Exam: N50.82 - Scrotal pain EXAMINATION: US SCROTUM CLINICAL INFORMATION: Scrotal pain. COMPARISON: None available. TECHNIQUE: A sonogram of the scrotum was performed assessing morejon-scale appearance and color Doppler flow. Spectral Doppler analysis of the arterial and venous flow were performed in the testes bilaterally. FINDINGS: RIGHT: Right testicle measures 4.2 x 1.7 x 3.4 cm, volume 13 mL. No focal testicular parenchymal lesions are visualized. Spectral Doppler analysis of the arterial and venous flow is normal in the right testis. Right epididymal head is normal in size. No right hydrocele or varicocele is seen. Right epididymal Doppler flow is normal. Small echogenic focus in the right scrotum, could represent an appendix epididymis. LEFT: Left testicle measures 4.4 x 1.7 x 2.9 cm, volume 11 mL. No focal testicular parenchymal lesions are visualized. Spectral Doppler analysis of the arterial and venous flow is normal in the left testis. Small echogenic focus measuring 0.3 x 0.1 x 0.2 cm, could reflect a scrotal roger. Left epididymal head is normal in size. No left hydrocele or varicocele is seen. Left epididymal Doppler flow is normal. US/US scrotum IMPRESSION: 1. No evidence of acute findings in the testicles. No sonographic evidence of torsion. Clinically correlate 2. Small echogenic focus in the left scrotum measuring 0.3 cm, could reflect a scrotal roger. Electronically signed by: Bhanu Bills MD 03/18/2025 05:09 PM EDT Dictated By: Bhanu Bills MD Signed By: <Electronically signed by Bhanu Bills MD in OV> 03/18/25 1709 DD/ 1551 TD/TT: 03/18/25 1615 Heat Pump Installer: ADALI us [facility] External Provider IMG US PROCEDURES Final Result * US Retroperitoneal Complete (03/18/2025 2:47 PM EDT) Anatomical Region Laterality Modality Ultrasound 03/18/2025 2:47 PM EDT Narrative 03/21/2025 7:09 AM EDT [address] [address] Ultrasound Report Signed Patient: Venancio Navarrete MR#: M [id number] : 1975 Acct:[id number] Age/Sex: 49 / M ADM Date: 03/18/25 Loc: HO.US Attending Dr: Nay BATRESPAsmita Ordering Physician: Nay Lutz Date of Service: 03/18/25 Procedure(s): US retroperitoneal comp Accession Number(s): [id number] [facility]; [facility] Reason for Exam: R39.12 - Poor urinary stream EXAMINATION: US RETROPERITONEUM HISTORY: R39.12 - Poor urinary stream TECHNIQUE: Real-time grayscale ultrasound imaging of the kidneys was performed and images were reviewed. COMPARISON: There are no prior studies available for comparison. FINDINGS: Right kidney: The right kidney measures 12.5 x 6.3 x 6.3 cm. Renal parenchymal echotexture and thickness are normal. There are no masses. There is a probable extrarenal pelvis. Punctate echogenic foci could represent calculi or calcified vessels. Left Kidney: The left kidney measures 11.8 x 6.6 x 6.0 cm. There is a probable hypertrophied column of Ramos. Renal parenchymal echotexture and thickness are otherwise normal. There are no masses. There is no hydronephrosis or renal calculi. The urinary bladder is unremarkable. Bilateral ureteral jets are identified. Before voiding, the urinary bladder measured 10.6 x 8.1 x 9.8 cm, for an estimated volume of 441 mL. After voiding, the urinary bladder measured 4.6 x 2.1 x 5.7 cm, for an estimated volume of 28 mL. The prostate measures 3.3 x 3.4 x 3.6 cm, for an estimated volume of 21.1 mL. There is a 1.5 cm hypoechoic area within the prostate, of uncertain significance. US/US retroperitoneal comp IMPRESSION: 1. Possible tiny right renal calculi versus calcified vessels. 2. Post void bladder residual of 28 mL. 3. Prostate volume of 21.1 mL. 1.5 cm hypoechoic area in the prostate, of uncertain significance. Correlation with PSA level is suggested. Electronically signed by: Johny Smith MD 03/21/2025 07:06 AM EDT RP Dictated By: Johny Smith MD Signed By: <Electronically signed by Johny Smith MD in OV> 03/21/25 0706 DD/ 1447 TD/TT: 03/18/25 1541 Heat Pump Installer: Procedure Note Donotuseinterpreter, Image - 03/21/2025 [place] [address] Ultrasound Report Signed Patient: Venancio Navarrete#: M [id number] : 1975Acct:[id number] Age/Sex: 49 / MADM Date: 03/18/25 Loc: .US Attending Dr: Nay MEDINA Ordering Physician: Nay Lutz Date of Service: 03/18/25 Procedure(s): US retroperitoneal comp Accession Number(s): [id number] cc: Nay Lutz; [facility] Reason for Exam: R39.12 - Poor urinary stream EXAMINATION: US RETROPERITONEUM HISTORY: R39.12 - Poor urinary stream TECHNIQUE: Real-time grayscale ultrasound imaging of the kidneys was performed and images were reviewed. COMPARISON: There are no prior studies available for comparison. FINDINGS: Right kidney: The right kidney measures 12.5 x 6.3 x 6.3 cm. Renal parenchymal echotexture and thickness are normal. There are no masses. There is a probable extrarenal pelvis. Punctate echogenic foci could represent calculi or calcified vessels. Left Kidney: The left kidney measures 11.8 x 6.6 x 6.0 cm. There is a probable hypertrophied column of Ramos. Renal parenchymal echotexture and thickness are otherwise normal. There are no masses. There is no hydronephrosis or renal calculi. The urinary bladder is unremarkable. Bilateral ureteral jets are identified. Before voiding, the urinary bladder measured 10.6 x 8.1 x 9.8 cm, for an estimated volume of 441 mL. After voiding, the urinary bladder measured 4.6 x 2.1 x 5.7 cm, for an estimated volume of 28 mL. The prostate measures 3.3 x 3.4 x 3.6 cm, for an estimated volume of 21.1 mL. There is a 1.5 cm hypoechoic area within the prostate, of uncertain significance. US/US retroperitoneal comp IMPRESSION: 1. Possible tiny right renal calculi versus calcified vessels. 2. Post void bladder residual of 28 mL. 3. Prostate volume of 21.1 mL. 1.5 cm hypoechoic area in the prostate, of uncertain significance. Correlation with PSA level is suggested. Electronically signed by: Johny Smith MD 03/21/2025 07:06 AM EDT Dictated By: Johny Smith MD Signed By: <Electronically signed by Johny Smith MD in OV> 03/21/25 0706 DD/ 1447 TD/TT: 03/18/25 1541 Heat Pump Installer: [facility] External Provider IMG US PROCEDURES Final Result * (ABNORMAL) POCT AYDEN-14 Urine Drug Screen [...] 3:40 PM EDT) HIV AB/AG Nonreactive Nonreactive [facility] Comment:HIV-1 p24 Ag and/or HIV-1/HIV-2 Ab not detected.A test result that is nonreactive does not exclude thepossibility of exposure to or infection with HIV-1 and/orHIV-2. Nonreactive results in this assay for individualswith prior exposure to HIV-1 and/or HIV-2 may be due toantigen and antibody levels that are below the limit ofdetection of this assay.The [employer] HIV Ag/Ab Combo assay result andsupplemental assay results should be interpreted inconjunction with the patient's clinical presentation,history and other laboratory results. If the results areinconsistent with clinical evidence, additional testing issuggested to confirm the result. Blood Venous blood specimen / Unknown 09/17/2024 3:40 PM EDT 09/17/2024 4:14 PM EDT [facility] LAB BLOOD ORDERABLES Final Re sult [facility] [address] [place] [phone] * Hepatitis C Antibody with Reflex to HCV, RNA, Quantitative, Real-Time PCR (06/28/2024 1:45 PM EST) Hepatitis C Antibody Nonreactive Nonreactive [facility] Comment:Antibodies to HCV no t detected; does not exclude early acuteHCV infection. 06/28/2024 1:45 PM EST 06/28/2024 4:09 PM EST Marychuy Fam MD LAB BLOOD ORDERABLES Final R esult [facility] [address] [place] [phone] [phone] * (ABNORMAL) Lipid Panel, Standard (06/28/2024 1:45 PM EST) Triglycerides 78 <150 mg/dL [facility] Comment:Desirable Triglyceri de: less than 150 mg/dLBorderline High Triglyceride 150-199 mg/dLHigh Triglyceride: 200-499 mg/dLVery High Triglyceride: greater than or equal to 5OO mg/dL Cholesterol 169 <200 mg/dL [facility] Comment:Desirable Cholestero l: less than 200 mg/dLBorderline High Cholesterol: 200-239 mg/dLHigh Cholesterol: greater than 239 mg/dL LDL Cholesterol Calculated 100(H) <100 mg/dL [facility] Comment:Desirable LDL: less than 100 mg/dLNear Optimal/Above Optimal LDL: 110- 129 mg/dLBorderline High LDL: 130-159 mg/dLHigh LDL: 160-189 mg/dLVery High LDL: greater than or equal to 190 mg/dL HDL Cholesterol 54 >40 mg/dL [facility] Comment:Desirable HDL: great er than 40 mg/dL Note: This HDL assay may give artificially low results in patients with liver disease. Blood Venous blood specimen / Unknown 06/28/2024 1:45 PM EST 06/28/2024 4:09 PM EST [facility] LOG CARRIER OPERATOR LAB BLOOD ORDERABLES Final Re sult [facility] [address] [place] [address] [phone] from Last 3 Months or Most Recently Relevant to Health Maintenance Insurance [facility] [place] [place] D[place] - HSN PARTIAL (MEDICAID) [place], [place] DENTAL - HSN PARTIAL (MEDICAID) Care Teams Golf Superintendent Relationship Specialty Start Date End Date Angelica Henley FNP [address] [place] [address] PCP - General Family Medicine 11/02/21
--- OUTSIDE RECORDS SUMMARY | 2025-03-28 13:15 | XMS_ITS | Encounter Summary ---
Author Organization [employer] Address [address] [place] [address] [address] [place] [address] Care Team Providers Care Steam Brush Operator Name Role Phone Angelica Henley LICENSED NUCLEAR CONTROL ROOM OPERATOR Primary Care Provider [phone] Encounter Details Date Type Department Care Team (Late Contact Info) Description 05/17/2022 Orders Only [facility] MEDICINE [address] [place] [phone] Peterson Black MD [address] [place] [phone] Opioid type dependence, continuous (CMS/[facility]) Social History Tobacco Use Types Packs/Day Years [...] Office Visit [facility] MEDICINE [address] [place] [phone] Marychuy Fam MD [address] [place] [phone] 04/29/2025 2:45 PM EST Office Visit [facility] MED[facility]INE [address] [place] [address] Angelica Henley FNP [address] [place], [place] [phone] 07/05/2025 1:30 PM EST Office Visit [facility] OPTOMETRY [address] [place], [place] [phone] Altagracia Simmons, OD [address] [place], [place] [phone] documented as of this encounter Visit Diagnoses Diagnosis Opioid type dependence, continuous (CMS/HCC) (HCC) Opioid type dependence, continuous documented in this encounter Care Teams Steam Brush Operator Relationship Specialty Start Date End Date Angelica Henley FNP [address] [place] [phone] PCP - General Family Medicine 11/02/21 documented as of this encounter
[2025-03-28 16:45] LABS: Prostate Specific Antigen 1.45 ng/mL (<0.05-4.0)
== END 2025-03-28 13:12 | disposition home or self-care (01) ==
LOC: HO.HHCL 13:11
PROVIDERS: PCP Registered Nurse; Visit Provider Nurse Practitioner Family
DX: N40.1 Benign prostatic hyperplasia with lower urinary tract symptoms (principal); R39.12 Poor urinary stream; R39.14 Feeling of incomplete bladder emptying
CPT/HCPCS: 36415; 84153

== ENCOUNTER 2025-04-04 14:38 | Outpatient (AMB) | payer OTHER, SELFPAY ==
--- NOTE | 2025-04-04 14:45 | MHC.OFFVIS ---
Intake Visit Reasons: 3M/US/PSA Intake Note: patient presents today for: 3m/US/PSA urology medications: tamsulosin blood thinners: none labs done 03/28/25: PSA 1.45 US done: 03/18/25 today's PVR: 0mls Toll Bridge Attendant Required: Yes Toll Bridge Attendant Services: Toll Bridge Attendant Present Accompanied by: Family/Other Allergies Sulfa (Sulfonamide Antibiotics) (SULFA (SULFONAMIDE ANTIBIOTICS)) Allergy (Intermediate, Verified 04/04/25 15:26) HIVES, Facial swelling Medication List - Last Reconciled 04/04/25 by TEODORA Schmitt- buprenorphine-naloxone 12-3 mg 1 film buccal Q24H clonidine HCl 0.1 mg PO BEDTIME doxepin 150 mg PO DAILY gabapentin 400 mg PO DAILY ibuprofen 200 mg PO Q6H PRN mirtazapine 7.5 mg PO DAILY tamsulosin 0.4 mg PO BEDTIME 30 days HPI Comments Details: Venancio is a pleasant 49 year old Wallisian-speaking male patient of Dr. Salidvar who was accompanied by his mom at today's office visit. He has a past medical history of perianal cyst, GERD, obesity, reactive airway disease, anxiety, polysubstance abuse disorder, tobacco abuse, hypertension, and H pylori infection. He presents to the office today for follow-up. Of note, patient was seen approximately 3 months ago as a new patient for ongoing lower urinary tract symptoms he has been experiencing at which time a retroperitoneal and scrotal ultrasound were ordered for further assessment evaluation. These results were reviewed and communicated with the patient today. Scrotal ultrasound 04/09 no evidence of acute findings in the testicles. No sonographic evidence of torsion. Small echogenic focus in the left scrotum measuring 3 mm could reflect a scrotal pleural. Retroperitoneal ultrasound 04/09 bilateral kidneys are normal in parenchymal echotexture and thickness. There are no renal masses bilaterally. There is no hydronephrosis noted bilaterally. Punctate echogenic foci could represent calculi or calcified vessels in the right kidney. The urinary bladder is unremarkable. 1.5 cm hyperechoic area within the prostate of uncertain significance prostate volume 21 mL. PSA 04/09. He does report feeling 0.4 mg of Flomax has been helpful in urinary hesitancy and weak urinary stream he had been experiencing. He is awaiting his upcoming appointment with GI in May for ongoing issues with constipation he has been experiencing. We did discussed correlation of constipation with lower urinary tract symptoms. He also discusses his anxiety regarding his health given his previous history of nephrolithiasis in [place] over 20 years ago that required surgical intervention. In office urinalysis results reviewed with the patient today. PVR 0 mL. Patient reports scrotal discomfort arises with increase in activity such as jumping. He describes discomfort as cramping in self-limiting. He reports once he stops jumping exercises scrotal cramping subsides. All questions were answered. He denies incontinence, hematuria, dysuria, foul smelling urine, flank pain, fever, and or chills. He otherwise offers no other issues or concerns at this time. [facility] Medical History Epidermal cyst Perianal cyst GERD (gastroesophageal reflux disease) Obesity (BMI 30-39.9) Reactive airway disease Generalized anxiety disorder Polysubstance abuse Tobacco abuse Hypertension H. pylori infection Surgical History Hx of colonoscopy History of esophagogastroduodenoscopy (EGD) Hx of cholecystectomy Review of Systems Const All systems reviewed & are unremarkable except as noted in HPI and below Physical Exam Const General: cooperative, comfortable, no acute distress, well developed, alert and awake Orientation/consciousness: patient oriented x3 Limitations: language barrier HEENT Head: Yes normal to inspection, Yes normocephalic and Yes atraumatic Ears: hearing grossly normal bilaterally Eyes General: appearance normal, both eyes and all related structures Neck Neck: Yes normal visual inspection and Yes trachea midline Chest Chest palpation & inspection: normal inspection of the chest Resp Effort & Inspection: normal respiratory effort and able to speak in complete sentences Cardio Rate: regular rate GI Inspection: Yes normal to inspection General: Yes no CVA tenderness Back/Spine/Pelvis Back: no CVA tenderness Skin General skin exam: no rashes or lesions noted Neuro General: patient oriented x3 Extrem General: Yes normal to inspection Psych Appearance: grossly normal and well kempt Mental Status: mental status grossly normal Speech and movement: Normal speech and movement present and Clear speech present Affect: normal affect Attitude: cooperative Thought process: Normal thought process present Thought content: Normal thought content present Insight: Fair insight present (Psych) Judgement: Fair judgement present (Psych) Results Reviewed Results Reviewed: Date of Service: 03/18/25 Procedure(s): US scrotum FINDINGS: RIGHT: Right testicle measures 4.2 x 1.7 x 3.4 cm, volume 13 mL. No focal testicular parenchymal lesions are visualized. Spectral Doppler analysis of the arterial and venous flow is normal in the right testis. Right epididymal head is normal in size. No right hydrocele or varicocele is seen. Right epididymal Doppler flow is normal. Small echogenic focus in the right scrotum, could represent an appendix epididymis. LEFT: Left testicle measures 4.4 x 1.7 x 2.9 cm, volume 11 mL. No focal testicular parenchymal lesions are visualized. Spectral Doppler analysis of the arterial and venous flow is normal in the left testis. Small echogenic focus measuring 0.3 x 0.1 x 0.2 cm, could reflect a scrotal roger. Left epididymal head is normal in size. No left hydrocele or varicocele is seen. Left epididymal Doppler flow is normal. IMPRESSION: 1. No evidence of acute findings in the testicles. No sonographic evidence of torsion. Clinically correlate 2. Small echogenic focus in the left scrotum measuring 0.3 cm, could reflect a scrotal roger. Date of Service: 03/18/25 Procedure(s): US retroperitoneal comp FINDINGS: Right kidney: The right kidney measures 12.5 x 6.3 x 6.3 cm. Renal parenchymal echotexture and thickness are normal. There are no masses. There is a probable extrarenal pelvis. Punctate echogenic foci could represent calculi or calcified vessels. Left Kidney: The left kidney measures 11.8 x 6.6 x 6.0 cm. There is a probable hypertrophied column of Ramos. Renal parenchymal echotexture and thickness are otherwise normal. There are no masses. There is no hydronephrosis or renal calculi. The urinary bladder is unremarkable. Bilateral ureteral jets are identified. Before voiding, the urinary bladder measured 10.6 x 8.1 x 9.8 cm, for an estimated volume of 441 mL. After voiding, the urinary bladder measured 4.6 x 2.1 x 5.7 cm, for an estimated volume of 28 mL. The prostate measures 3.3 x 3.4 x 3.6 cm, for an estimated volume of 21.1 mL. There is a 1.5 cm hypoechoic area within the prostate, of uncertain significance. IMPRESSION: 1. Possible tiny right renal calculi versus calcified vessels. 2. Post void bladder residual of 28 mL. 3. Prostate volume of 21.1 mL. 1.5 cm hypoechoic area in the prostate, of uncertain significance. Correlation with PSA level is suggested. Assessment & Plan Assessment & Plan (1) Weak urinary stream: Code(s): R39.12 - Poor urinary stream Category: Medical (2) Feeling of incomplete bladder emptying: Code(s): R39.14 - Feeling of incomplete bladder emptying Category: Medical Plan In office urinalysis results reviewed with the patient today; as noted above. PVR 0 mL. Recent scrotal ultrasound results reviewed with the patient today; as noted above. Recent retroperitoneal ultrasound results reviewed with the patient today; as noted above. Recent PSA results reviewed with the patient today; as noted above. Continue with Flomax as discussed and prescribed; refill provided. Continue to follow-up with GI as planned All questions were answered. We discussed wearing more supportive underwear. Will continue with surveillance monitoring. Follow-up in 6 months with PSA and PVR; or sooner with any issues, concerns, and or questions. Orders: Orders Prostate Specific Antigen 6 Months R39.12 - Poor urinary stream, R39.14 - Feeling of incomplete bladder emptying Medications: Changed From tamsulosin 0.4 mg PO BEDTIME 30 days 30 caps 3RF N40.1 - Benign prostatic hyperplasia with lower urinary tract symptoms, R35.1 - Nocturia To tamsulosin 0.4 mg PO BEDTIME 90 caps 2RF 90 days N40.1 - Benign prostatic hyperplasia with lower urinary tract symptoms, R35.1 - Nocturia Patient Instructions: The patient had an opportunity to ask questions regarding the treatment plan. All questions were answered. Physical exam, labs, and imaging were discussed and reviewed in detail. As well as risks, benefits, and discussion of treatment choices. No major barriers to understanding were identified. The patient expressed understanding and agreement with the above treatment plan. The patient was made aware they should contact our office by phone for worsening of their current condition, the appearance of new symptoms, or with any questions or concerns. Compliance is encouraged with any medications and follow up testing that is ordered. It is a privilege to be allowed the opportunity to participate in? your urological care.? Again, if you have any questions or concerns If you have any questions or concerns please do not hesitate to contact me. The office is [phone]. This note is constructed using voice recognition software. While every effort has been made to ensure accuracy bee raiser errors may have been included. Yours sincerely, ADAM Schmitt Coding Level of Care Code Est Pt Level 3 (85188) Diagnoses Weak urinary stream R39.12 Feeling of incomplete bladder emptying R39.14
--- OUTSIDE RECORDS SUMMARY | 2025-04-04 18:26 | XMS_ITS | Encounter Summary ---
Author Organization [employer] Address [address] [facility] [address] [place] [address] Care Team Providers Care Class A Regional Truck Driver Name Role Phone Angelica Henley SIGN BUILDER SUPERVISOR Primary Care Provider [phone] Reason for Visit * Reason Comments Med Refill Encounter Details Date Type Department Care Team ([facility] st Contact Info) Description 01/15/2024 Refill [facility] [address] [place] [address] Marychuy Fam MD [address] [place] [address] Uncomplicated opioid dependence (CMS/HCC) Social History Tobacco [...] Description 04/14/2025 3:00 PM EDT Office Visit [facility] [address] [place] [address] Marychuy Fam MD [address] [place] [address] 04/29/2025 2:45 PM EST Office Visit [facility] [address] [place] [address] Angelica Henley FNP [address] [place] [address] 07/05/2025 1:30 PM EST Office Visit [facility] OPTOMETRY [address] [place] [address] Tarka, Altagracia, OD [address] [place] [address] 07/07/2025 3:30 PM EST Office Visit [facility] [address] [place] [phone] Marychuy Fam MD [address] [place] [address] documented as of this encounter Visit Diagnoses Diagnosis Uncomplicated opioid dependence (CMS/HCC) (HCC) documented in this encounter Care Teams Class A Regional Truck Driver Relationship Specialty Start Date End Date Angelica Henley FNP [address] [place] [phone] PCP - General Family Medicine 11/02/21 documented as of this encounter
--- OUTSIDE RECORDS SUMMARY | 2025-04-04 18:27 | XMS_ITS | Encounter Summary ---
Author Organization [employer] Address [address] [facility] [address] [place] [address] Care Team Providers Care Song Plugger Name Role Phone Ramsey [facility] Primary Care Provider Encounter Details Date Type Department Care Team ([facility] st Contact Info) Description 10/05/2024 Telephone [facility] [address] [place] [address] Ramsey [facility] [address] [place] [address] Social History Tobacco Use Types Packs/Day Years [...] Description 04/14/2025 3:00 PM EDT Office Visit [facility] [address] [place] [phone] Marychuy Fam MD [address] [place] [address] 04/29/2025 2:45 PM EST Office Visit [facility] [address] [place] [address] Angelica Henley FNP [address] [place] [address] 07/05/2025 1:30 PM EST Office Visit [facility] OPTOMETRY [address] [place] [address] TarkaAltagracia, OD [address] [place] [address] 07/07/2025 3:30 PM EST Office Visit [facility] [address] [place] [address] Marychuy Fam MD [address] [place] [address] documented as of this encounter Visit Diagnoses Not on filedocumented in this encounter Care Teams Song Plugger Relationship Specialty Start Date End Date Angelica Henley FNP [address] [place] [phone] PCP - General Family Medicine 11/02/21 documented as of this encounter
--- OUTSIDE RECORDS SUMMARY | 2025-04-04 18:27 | XMS_ITS | Encounter Summary ---
Author Organization [employer] Address [address] [place] [address] 7 [place] [address] Care Team Providers Care Direct Support Professional Caregiver Name Role Phone Angelica Henley [facility] Primary Care Provider [phone] Reason for Visit * Reason Comments Med Refill Encounter Details Date Type Department Care Team (Late Contact Info) Description 12/20/2022 Refill [facility] [address] [place] [phone] Peterson Black MD [address] [place] [phone] Uncomplicated opioid dependence (CMS/HCC) Social History Tobacco [...] Upcoming Encounters Date Type Department Care Team ([facility] Contact Info) Description 04/14/2025 3:00 PM EDT Office Visit [facility] MEDICINE [address] [place] [phone] Marychuy Fam MD [address] [place] [phone] 04/29/2025 2:45 PM EST Office Visit [facility] MEDICINE [address] [place] [phone] Angelica Henley [facility] [address] [place] [address] 07/05/2025 1:30 PM EST Office Visit [facility] OPTOMETRY [address] [place] [address] Altagracia Simmons, OD [address] [place] [address] 07/07/2025 3:30 PM EST Office Visit [facility] MEDICINE [address] [place] [address] Marychuy Fam MD [address] [place] [address] documented as of this encounter Visit Diagnoses Diagnosis Uncomplicated opioid dependence (CMS/HCC) (HCC) documented in this encounter Care Teams Direct Support Professional Caregiver Relationship Specialty Start Date End Date LoryAngelica ray FNP [address] [place] [phone] PCP - General Family Medicine 11/02/21 documented as of this encounter
--- OUTSIDE RECORDS SUMMARY | 2025-04-04 18:27 | XMS_ITS | Clinical Summary ---
Author Organization [employer] Address [address] [facility] 7t [place] [address] Care Team Providers Care Field Worker Name Role Phone Angelica Henley [facility] Primary Care Provider [phone] Allergies Active Allergy Reactions Criticality Noted Date [...] injectionIndicat ions:Opioid dependence, uncomplicated (CMS/HCC) ([facility]) Inject 1.5 mL (1 each) under the [...] Encounters Date Type Department Care Team Description 03/28/2025 Orders Only GENERIC EXTERNAL DATA DEPARTMENT Provider, Generic External Data 03/18/2025 Orders Only [facility] External Provider, [facility] 03/07/2025 Refill [facility] MEDICINE [address] [place] [address] [facility], [facility] Opioid type dependence, continuous (CMS/HCC) 02/17/2025 2:30 PM EDT Office Visit [address] [address] Marychuy Fam MD Uncomplicated opioid dependence (CMS/HCC) (Primary Dx) 02/17/2025 Travel 02/10/2025 Refill [facility] [place] [address] Marychuy Fam MD Uncomplicated opioid dependence (CMS/HCC) 01/20/[address] [address] Angelica Henley FNP chart prep 01/20/[address] [address] Angelica Henley FNP 01/12/2025 Patient Outreach [address] [address] Angelica Henley FNP Pre-visit Planning (SDOH screening completed on 07/22/2024) 01/06/2025 3:45 PM EDT Office Visit [address] [address] Marychuy Fam MD Uncomplicated opioid dependence (CMS/HCC) (Primary Dx); Current moderate episode of major depressive disorder without prior episode (CMS/HCC) 01/06/2025 Refill [facility] [place] [address] Marychuy Fam MD Uncomplicated opioid dependence (CMS/HCC) 01/06/2025 Travel 01/04/[address] [address] Sebastian Poole, JOSE R from Last 3 Months Immunizations Immunization Administration [...] Description 04/14/2025 3:00 PM EDT Office Visit [facility] [address] [place] [address] Marychuy Fam MD [address] [place] [address] 04/29/2025 2:45 PM EST Office Visit [facility]INE [address] [place] [address] [place], Angelica, [facility] [address] [place] [address] 07/05/2025 1:30 PM EST Office Visit [facility] OPTOMETRY [address] [place] [address] TarkaAltagracia, OD [address] [place] [address] 07/07/2025 3:30 PM EST Office Visit [facility] MEDICINE [address] [place] [address] Marychuy Fam MD [address] [place] [address] Health Maintenance Due Date Last Done Comments [...] Procedure Name Priority Date/Time Associated Diagnosis Comments PSA, TOTAL Routine 03/28/2025 1:20 PM EDT US SCROTUM Routine 03/18/2025 3:51 PM EDT [...] Recently Relevant to Health Maintenance Results * PSA,Total (03/28/2025 1:20 PM EDT) Prostate Specific Antigen 1.45 <0.05 - 4.0 ng/mL [facility] Comment:PSA methodology: Abb keny Alinity i ChemiluminescentMicroparticle Immunoassay (CMIA) 03/28/2025 1:20 PM EDT 03/28/2025 4:02 PM EDT us Generic External Data Provider LAB BLOOD ORDERAB LES Final Result [facility] [address] [place] [phone] * US Scrotum (03/18/2025 3:51 PM EDT) Anatomical Region Laterality Modality Body Ultrasound 03/18/2025 3:51 PM EDT Narrative 03/18/2025 5:12 PM EDT [address] [address] Ultrasound Report Signed Patient: Venancio Navarrete MR#: M [id number] : 1975 Acct:[id number] Age/Sex: 49 / M ADM Date: 03/18/25 Loc: HO. Attending Dr: Nay JOHN Ordering Physician: Nay Lutz Date of Service: 03/18/25 Procedure(s): US scrotum Accession Number(s): [id number] cc: Nay Lutz; [facility] Reason for Exam: N50.82 - Scrotal [...] Bhanu Bills MD 03/18/2025 05:09 PM EDT RP Dictated By: Bhanu Bills MD Signed By: <Electronically signed by Bhanu Bills MD in OV> 03/18/25 1709 DD/ 1551 TD/TT: 03/18/25 1615 Gardening Manager: ADALI Procedure Note Donotuseinterpreter, Image - 03/18/2025 [place] [address] Ultrasound Report Signed Patient: Venancio Navarrete#: M [id number] : 1975Acct:[id number] Age/Sex: 49 / MADM Date: 03/18/25 Loc: HO.US Attending Dr: Nay MEDINA Ordering Physician: Nay Lutz Date of Service: 03/18/25 Procedure(s): US scrotum Accession Number(s): [id number] cc: Nay Lutz; [facility] Reason for Exam: N50.82 - Scrotal [...] 03/18/25 1709 DD/ 1551 TD/TT: 03/18/25 1615 Gardening Manager: ADALI us [facility] External Provider IMG US PROCEDURES Final Result * US Retroperitoneal Complete (03/18/2025 2:47 PM EDT) Anatomical Region Laterality Modality Ultrasound 03/18/2025 2:47 PM EDT Narrative 03/21/2025 7:09 AM EDT [place] [address] Ultrasound Report Signed Patient: Venancio Navarrete MR#: M [id number] : 1975 Acct:[id number] Age/Sex: 49 / M ADM Date: 03/18/25 Loc: HO.US Attending Dr: Nay MEDINA Ordering Physician: Nay Lutz Date of Service: 03/18/25 Procedure(s): US retroperitoneal comp Accession Number(s): [id number] cc: Nay Lutz; [facility] Reason for Exam: R39.12 - Poor [...] 03/21/25 0706 DD/ 1447 TD/TT: 03/18/25 1541 Gardening Manager: Procedure Note Donotuseinterpreter, Image - 03/21/2025 [place] [address] Ultrasound Report Signed Patient: Venancio Navarrete#: M [id number] : 1975Acct:[id number] Age/Sex: 49 / MADM Date: 03/18/25 Loc: HO.US Attending Dr[facility] Ordering Physician: Nay Lutz Date of Service: 03/18/25 Procedure(s): US retroperitoneal comp Accession Number(s): [id number] cc: Nay Lutz [facility]; [facility] Reason for Exam: R39.12 - Poor [...] 03/21/25 0706 DD/ 1447 TD/TT: 03/18/25 1541 Gardening Manager: [facility] External Provider IMG US PROCEDURES Final Result * (ABNORMAL) POCT AYDEN-14 Urine Drug Screen (01/06/2025 3:08 PM EDT) Pathologist [facility] THC Positive(A) Negative Cocaine Screen, Urine Negative [...] Generation, with Reflexes (09/17/2024 3:40 PM EDT) Pathologist [facility] HIV AB/AG Nonreactive Nonreactive [facility] Comment:HIV-1 p24 Ag and/or HIV-1/HIV-2 Ab not detected.A test result that is nonreactive does not exclude thepossibility of exposure to or infection with HIV-1 and/orHIV-2. Nonreactive results in this assay for individualswith prior exposure to HIV-1 and/or HIV-2 may be due toantigen and antibody levels that are below the limit ofdetection of this assay.The [employer] HIV Ag/Ab Combo assay result andsupplemental assay results should be interpreted inconjunction with the patient's clinical presentation,history and other laboratory results. If the results areinconsistent with clinical evidence, additional testing issuggested to confirm the result. Blood Venous blood specimen / Unknown 09/17/2024 3:40 PM EDT 09/17/2024 4:14 PM EDT [facility] LANGUAGES AND LITERATURE INSTRUCTOR LAB BLOOD ORDERABLES Final Re sult Performing Organization Address [facility] Co de Phone Number [facility] [address] [place] [address] [phone] * Hepatitis C Antibody with Reflex to HCV, RNA, Quantitative, Real-Time PCR (06/28/2024 1:45 PM EST) Hepatitis C Antibody Nonreactive Nonreactive [facility] Comment:Antibodies to HCV no t detected; does not exclude early acuteHCV infection. 06/28/2024 1:45 PM EST 06/28/2024 4:09 PM EST Marychuy Fam MD LAB BLOOD ORDERABLES Final R esult Performing Organization Address [facility] Co de Phone Number [facility] [address] [place] [address] [phone] * (ABNORMAL) Lipid Panel, Standard (06/28/2024 1:45 PM EST) Triglycerides 78 <150 mg/dL [facility] Comment:Desirable Triglyceri de: less than 150 mg/dLBorderline High Triglyceride 150-199 mg/dLHigh Triglyceride: 200-499 mg/dLVery High Triglyceride: greater than or equal to 5OO mg/dL Cholesterol 169 <200 mg/dL [facility] Comment:Desirable Cholestero l: less than 200 mg/dLBorderline High Cholesterol: 200-239 mg/dLHigh Cholesterol: greater than 239 mg/dL LDL Cholesterol Calculated 100(H) <100 mg/dL [facility] Comment:Desirable LDL: less than 100 mg/dLNear Optimal/Above Optimal LDL: 110- 129 mg/dLBorderline High LDL: 130-159 mg/dLHigh LDL: 160-189 mg/dLVery High LDL: greater than or equal to 190 mg/dL HDL Cholesterol 54 >40 mg/dL [facility] Comment:Desirable HDL: great er than 40 mg/dL Note: This HDL assay may give artificially low results in patients with liver disease. Blood Venous blood specimen / Unknown 06/28/2024 1:45 PM EST 06/28/2024 4:09 PM EST [facility] LANGUAGES AND LITERATURE INSTRUCTOR LAB BLOOD ORDERABLES Final Re sult [facility] [address] [place] [phone] from Last 3 Months or Most Recently Relevant to Health Maintenance Insurance [facility] DENTAL - HSN PARTIAL (MEDICAID) [place], [place] DENTAL - HSN PARTIAL (MEDICAID) * Guarantor: Venancio Chakraborty Account Type Relation to Patient Date of Phone Billing Address Personal/Family Self [place], [place] Care Teams Field Worker Relationship Specialty Start Date End Date Angelica Henley FNP [address] [place] [address] PCP - General Family Medicine 11/02/21
--- OUTSIDE RECORDS SUMMARY | 2025-04-04 18:27 | XMS_ITS | Encounter Summary ---
Author Organization [employer] Address [address] [place] [address] 7 [place] [address] Care Team Providers Care Home Health Registered Nurse Name Role Phone Angelica Henley [facility] Primary Care Provider [phone] Reason for Visit * Reason Comments Med Refill Encounter Details Date Type Department Care Team (Late Contact Info) Description 09/25/2023 Refill [facility] MEDICINE [address] [place] [address] Tiburcio Horvath MD [address] [place] [address] Uncomplicated opioid dependence (CMS/HCC) Social History Tobacco [...] Description 04/14/2025 3:00 PM EDT Office Visit [facility] MED[facility]INE [address] [place] [address] Marychuy Fam MD [address] [place] [phone] 04/29/2025 2:45 PM EST Office Visit [facility] MED[facility]INE [address] [place] [address] Angelica Henley [address] [address] 07/05/2025 1:30 PM EST Office Visit [facility] OPTOMETRY [address] [place] [address] Altagracia Simmons, OD [address] [place] [address] 07/07/2025 3:30 PM EST Office Visit [facility] MEDICINE 230 [place] [address] Marychuy Fam MD [address] [place] [address] documented as of this encounter Visit Diagnoses Diagnosis Uncomplicated opioid dependence (CMS/HCC) (HCC) documented in this encounter Care Teams Home Health Registered Nurse Relationship Specialty Start Date End Date LoryAngelica ray FNP [address] [place] [address] PCP - General Family Medicine 11/02/21 documented as of this encounter
--- OUTSIDE RECORDS SUMMARY | 2025-04-04 18:27 | XMS_ITS | Encounter Summary ---
Author Organization [employer] Address [address] [facility] 7t [place] [address] Care Team Providers Care Cistern Room Working Supervisor Name Role Phone Angelica Henley [facility] Primary Care Provider [phone] Reason for Visit * Reason Onset Date Comments Nurse Triage 12/26/2022 Encounter Details Date Type Department Care Team (Late st Contact Info) Description 12/26/2022 Telephone [facility] MEDICINE [address] [place] [address] [place] [facility] [address] [place] [address] Nurse Triage Social History Tobacco Use Types [...] 12/26/2022 3:14 PM EDT Triage call with [employer] Supervisor [place] [id number] Pt reports dizziness for almost a month [...] accepted this outcome Please contact pt at [phone] (Bengali speaker) documented in this encounter Plan of Treatment Upcoming Encounters Date Type Department Care Team (Late st Contact Info) Description 04/14/2025 3:00 PM EDT Office Visit [facility] MEDICINE [address] [place] [address] Marychuy Fam MD [address] [place] [address] 04/29/2025 2:45 PM EST Office Visit [facility] MEDICINE [address] [place] [address] Angelica Henley FNP [address] [place] [address] 07/05/2025 1:30 PM EST Office Visit [facility] OPTOMETRY [address] [place] [address] Altagracia Simmons, OD [address] [place] [address] 07/07/2025 3:30 PM EST Office Visit [facility] MEDICINE [address] [place] [address] Marychuy Fam MD [address] [place] [address] documented as of this encounter Visit Diagnoses Not on filedocumented in this encounter Care Teams Cistern Room Working Supervisor Relationship Specialty Start Date End Date Angelica Henley FNP [address] [place] [phone] PCP - General Family Medicine 11/02/21 documented as of this encounter
--- OUTSIDE RECORDS SUMMARY | 2025-04-04 18:27 | XMS_ITS | Encounter Summary ---
Author Organization [employer] Address [address] [place] [address] 7 [place] [address] Care Team Providers Care Mortgage Loan Underwriter Name Role Phone [place] [facility] Primary Care Provider [phone] Reason for Visit * Reason Comments Med Refill Encounter Details Date Type Department Care Team (Late Contact Info) Description 06/19/2023 Refill [facility] [address] [place] [address] [address] Social History Tobacco Use Types Packs/Day Years [...] Description 04/14/2025 3:00 PM EDT Office Visit [facility] [address] [place] [address] Marychuy Fam MD [address] [place] [address] 04/29/2025 2:45 PM EST Office Visit [facility] [address] [place] [address] [place] [address] [address] 07/05/2025 1:30 PM EST Office Visit [facility] OPTOMETRY [address] [place] [address] Altagracia Simmons OD [address] [place] [address] 07/07/2025 3:30 PM EST Office Visit [facility] [address] [place] [address] Marychuy Fam MD [address] [place] [address] documented as of this encounter Visit Diagnoses Not on filedocumented in this encounter Care Teams Mortgage Loan Underwriter Relationship Specialty Start Date End Date Angelica Henley FNP [address] [place] [address] PCP - General Family Medicine 11/02/21 documented as of this encounter
--- OUTSIDE RECORDS SUMMARY | 2025-04-04 18:27 | XMS_ITS | Patient Health Record ---
Author Organization [facility] Address [address] [facility], [address] [place] [address] Support Name Relationship Address Phone Venancio Chakraborty Guarantor Unknown Reason For Referral No Information Plan Of Treatment No Information
--- OUTSIDE RECORDS SUMMARY | 2025-04-04 18:27 | XMS_ITS | Encounter Summary ---
Author Organization [employer] Address [address] [place] [address] 7 [place] [address] Care Team Providers Care Software Installation Engineer Name Role Phone Lory [facility] Primary Care Provider [phone] Reason for Visit * Reason Comments Med Refill Encounter Details Date Type Department Care Team ([facility] Contact Info) Description 08/13/2023 Refill [facility] MEDICINE [address] [place] [address] Angelica Henley [facility] [address] [place] [address] Opioid type dependence, continuous (CMS/HCC) Social History [...] Upcoming Encounters Date Type Department Care Team ([facility] Contact Info) Description 04/14/2025 3:00 PM EDT Office Visit [facility] MED[facility]INE [address] [place] [address] Marychuy Fam MD [address] [place] [address] 04/29/2025 2:45 PM EST Office Visit [facility] MED[facility]INE [address] [place] [address] Angelica Henley [facility] [address] [place] [address] 07/05/2025 1:30 PM EST Office Visit [facility] OPTOMETRY [address] [place] [address] Altagracia Simmons, OD [address] [place] [address] 07/07/2025 3:30 PM EST Office Visit [facility]INE [address] [place] [address] Marychuy Fam MD [address] [place] [address] documented as of this encounter Visit Diagnoses Diagnosis Opioid type dependence, continuous (CMS/HCC) (HCC) Opioid type dependence, continuous documented in this encounter Care Teams Software Installation Engineer Relationship Specialty Start Date End Date Angelica Henley FNP [address] [place] [address] PCP - General Family Medicine 11/02/21 documented as of this encounter
--- OUTSIDE RECORDS SUMMARY | 2025-04-04 18:27 | XMS_ITS | Encounter Summary ---
Author Organization [employer] Address [address] [place] [address] 7t [place] [address] Care Team Providers Care Cupola Repairer Name Role Phone Angelica Henley [facility] Primary Care Provider [phone] Encounter Details Date Type Department Care Team (Late Contact Info) Description 05/17/2022 Orders Only [facility] MEDICINE [address] [place] [address] Peterson Black MD [address] [place] [phone] Opioid type dependence, continuous (CMS/[facility]) Social History Tobacco Use Types Packs/Day Years [...] Description 04/14/2025 3:00 PM EDT Office Visit [facility] MEDICINE [address] [place] [address] Marychuy Fam MD [address] [place] [address] 04/29/2025 2:45 PM EST Office Visit [facility] MEDICINE [address] [place] [address] [facility] [address] [place] [address] 07/05/2025 1:30 PM EST Office Visit [facility] OPTOMETRY [address] [place] [address] Altagracia Simmons, OD [address] [place] [address] 07/07/2025 3:30 PM EST Office Visit [facility] MEDICINE [address] [place] [address] Marychuy Fam MD [address] [place] [address] documented as of this encounter Visit Diagnoses Diagnosis Opioid type dependence, continuous (CMS/HCC) ([facility]) Opioid type dependence, continuous documented in this encounter Care Teams Cupola Repairer Relationship Specialty Start Date End Date Lory GISEL DominguezP [address] [place] [address] PCP - General Family Medicine 11/02/21 documented as of this encounter
== END 2025-04-04 15:20 | disposition home or self-care (01) ==
LOC: HO.HUSH 14:38
PROVIDERS: PCP Registered Nurse; Visit Provider Nurse Practitioner Family
DX: R39.12 Poor urinary stream (principal); R39.14 Feeling of incomplete bladder emptying; Z13.9 Encounter for screening, unspecified
CPT/HCPCS: 99213

== ENCOUNTER → 2025-04-04 14:38 | Outpatient (BNVA) | payer OTHER, SELFPAY | PROVIDERS: PCP Registered Nurse; Visit Provider Nurse Practitioner Family | DX: R39.12 Poor urinary stream (principal); R39.14 Feeling of incomplete bladder emptying | CPT/HCPCS: 51798; 81003; 99212 ==

== ENCOUNTER 2025-04-11 15:47 | Outpatient (AMB) | payer OTHER, SELFPAY ==
--- NOTE | 2025-04-11 16:10 | MHC.OFFVIS ---
Vital Signs 04/11/25 16:15 Height 6 ft Weight 200 lb BMI 27.1 BP 128/76 Blood Pressure Location Rt brachial Position Sitting Pulse 86 Pulse Source Pulse Oximeter Pulse Oximetry (%) 96 Oxygen Delivery Method Room Air Intake Visit Reasons: [place] screening, symptomatic (const.) Intake Note: New pt for initial colo screening w/ sx. CC: C.O. intermittent constipation w/ BRB per rectum. Pt also reports having RUQ pain and bloating which seems to be associated with the constipation. Comic Book Writer Required: Yes Comic Book Writer Services: Comic Book Writer Present Comic Book Writer Name: Moisés (provider only - GI) Information Interpreted: clinical only Accompanied by: Self / Same As Patient Allergies Sulfa (Sulfonamide Antibiotics) (SULFA (SULFONAMIDE ANTIBIOTICS)) Allergy (Intermediate, Verified 04/11/25 16:12) HIVES, Facial swelling HPI HPI [place] screening, symptomatic (const.): Details: 49 year old? male with past medical history of GERD, obesity, polysubstance abuse, hypertension, incomplete bladder emptying is here today for pre colonoscopy screening.? Patient was sent to us by his PCP.? Patient reports occasional constipation and bloating depending on what he eats. Patient reports right upper quadrant pain and bloating, worse with constipation. Currently he is not using anything to help him move his bowels. Reports occasional blood after bowel movement when wiping. Denies any family history of CRC.? Denies history of difficulty with sedation or anesthesia in the past.? Negative for history of sleep apnea.? Denies any history of cardiac, renal, pulmonary, or hepatic disease.?? No history of infectious? diseases like hepatitis A, B, C, HIV or tuberculosis.? Patient is not on any anticoagulation [facility] Medical History Epidermal cyst Perianal cyst GERD (gastroesophageal reflux disease) Obesity (BMI 30-39.9) Reactive airway disease Generalized anxiety disorder Polysubstance abuse Tobacco abuse Hypertension H. pylori infection Surgical History Hx of colonoscopy History of esophagogastroduodenoscopy (EGD) Hx of cholecystectomy Review of Systems Const Denies weight gain and Denies weight loss ENT Reports no additional complaints, Denies dysphagia and Denies odynophagia Card Reports no additional complaints Resp Reports no additional complaints GI Denies abdominal pain, Denies belching, Denies melena, Denies bloating, Denies change in bowel habits, Denies dysphagia, Denies excessive flatus, Denies dyspepsia, Denies heartburn, Denies diarrhea, Denies loose stools, Denies nausea, Denies odynophagia and Denies vomiting Reports no additional complaints Musc Reports no additional complaints Neuro Reports no additional complaints Psych Reports no additional complaints Endo Reports no additional complaints Physical Exam Vital Signs: Last Vital Signs Pulse 86 04/11/25 16:15 BP 128/76 04/11/25 16:15 Pulse Ox 96 04/11/25 16:15 Oxygen Delivery Method Room Air 04/11/25 16:15 BMI result Body Mass Index 27.1 Const General: healthy appearing, no acute distress and well developed Nutritional Appearance: well nourished Orientation/consciousness: patient oriented x3 Resp Effort & Inspection: normal respiratory effort, able to speak in complete sentences, no tracheal deviation and symmetric chest movement Auscultation: clear to auscultation bilaterally Cardio Rate: regular rate GI Inspection: Yes normal to inspection and No distended Palpation (GI): Soft to palpation, not firm, nontender and No hepatosplenomegaly present Auscultation: normal bowel sounds General: Yes no CVA tenderness Back/Spine/Pelvis Back: no CVA tenderness Skin General skin exam: elasticity normal, turgor normal and dry skin Neuro General: patient oriented x3 Psych Appearance: grossly normal Mental Status: mental status grossly normal Assessment & Plan Assessment & Plan (1) Constipation: Code(s): K59.00 - Constipation, unspecified Category: Medical Qualifiers: Constipation type: slow transit constipation Qualified Code(s): K59.01 - Slow transit constipation (2) GERD (gastroesophageal reflux disease): Code(s): K21.9 - Gastro-esophageal reflux disease without esophagitis Category: Medical Qualifiers: Esophagitis presence: esophagitis presence not specified Qualified Code(s): K21.9 - Gastro-esophageal reflux disease without esophagitis (3) Postprandial abdominal bloating: Code(s): R14.0 - Abdominal distension (gaseous) Plan Patient denies any cardiac or respiratory symptoms.? Denies any issues with anesthesia in the past.? Denies any history of sleep apnea.? No history infectious diseases in the past or present.? Not on any anticoagulation therapy.? No family or personal history of colon cancer or polyps.? Patient reports occasional blood after bowel movement, however denies denies melena, unintentional weight loss or ribbon like stools. History of H pylori in the past. Currently occasional epigastric pain depending on what he eats. Patient will start taking omeprazole daily. Avoid dietary triggers and late night snacking. Staying upright for minimum 3 hours after meals discussed with patient. He will be sent for upper endoscopy to rule out gastritis, esophagitis, duodenitis, H pylori, Barretts.? Discussed at length the pre-procedure,? prep, diet & medications as well as what to expect prior, during and after the procedure.?? Stressed the importance of good bowel prep.? Recommended the use of Vaseline or Calmoseptine OTC & baby wipes with bowel movements to promote comfort.? ?Patient verbalizes understanding and agrees to plan of care.? He was given the opportunity to ask questions and all questions answered.? We will see him after the procedure.? Orders: Orders H Pylori Breath Test 04/11/25 K21.9 - Gastro-esophageal reflux disease without esophagitis Referrals GI Procedure Notification Z12.11 - Encounter for screening for malignant neoplasm of colon, R10.13 - Epigastric pain Pulmonology Referral R06.81 - Apnea, not elsewhere classified, J45.909 - Unspecified asthma, uncomplicated Medications: New bisacodyl (Dulcolax (bisacodyl)) take 4 tabs at noon the day before your colonoscopy 20 mg (4 x 5 mg) PO ONCE 4 tabs 0RF constipation 1 day Z12.11 - Encounter for screening for malignant neoplasm of colon polyethylene glycol 3350 (Miralax) As directed by gastroenterology department at [facility] 238 grams PO ONCE 238 grams 0RF Z12.11 - Encounter for screening for malignant neoplasm of colon omeprazole 40 mg PO DAILY 30 caps 4RF K21.9 - Gastro-esophageal reflux disease without esophagitis Coding Level of Care Code New Pt Level 4 (14571) Diagnoses Slow transit constipation K59.01 Constipation type: slow transit constipation Gastroesophageal reflux disease, unspecified whether esophagitis present K21.9 Esophagitis presence: esophagitis presence not specified Postprandial abdominal bloating R14.0 Time Spent (min) 50 Comment 35 minutes spent with patient and additional 15 minutes spent reviewing his records
[2025-04-11 16:15] VITALS: BP 128/76; PULSE 86; O2SAT 96; BMI 27.1
--- OUTSIDE RECORDS SUMMARY | 2025-04-11 18:49 | XMS_ITS | Encounter Summary ---
Author Organization [employer] Address [address] [place] [address] 7 [place] [address] Care Team Providers Care Tunnel Miner Name Role Phone [place] [facility] Primary Care Provider [phone] Reason for Visit * Reason Comments Med Refill Encounter Details Date Type Department Care Team (Late Contact Info) Description 06/19/2023 Refill [facility] [address] [place] [address] [address] Social History Tobacco Use Types Packs/Day Years [...] Description 04/14/2025 3:00 PM EDT Office Visit [facility] [address] [place] [address] Marychuy Fam MD [address] [place] [address] 04/29/2025 2:45 PM EST Office Visit [facility] [address] [place] [address] [place] [address] [address] 07/05/2025 1:30 PM EST Office Visit [facility] [address] [place] [address] Altagracia Simmons OD [address] [place] [address] 07/07/2025 3:30 PM EST Office Visit [facility] 230 [place] [address] Marychuy Fam MD 230 [place] [address] documented as of this encounter Visit Diagnoses Not on filedocumented in this encounter Care Teams Tunnel Miner Relationship Specialty Start Date End Date Angelica Henley FNP [address] [place] [address] PCP - General Family Medicine 11/02/21 documented as of this encounter
--- OUTSIDE RECORDS SUMMARY | 2025-04-11 18:49 | XMS_ITS | Encounter Summary ---
Author Organization [employer] Address [address] [facility] 7t [place] [address] Care Team Providers Care Invas Tech Name Role Phone Angelica Henley [employer] Primary Care Provider [phone] Reason for Visit * Reason Comments Med Refill Encounter Details Date Type Department Care Team ([facility] st Contact Info) Description 01/15/2024 Refill [facility] [address] [place] [address] Marychuy Fam MD [address] [place] [address] Uncomplicated opioid dependence (CMS/HCC) Social History Tobacco [...] 04/14/2025 3:00 PM EDT Office Visit [facility] [address] [place] [address] Marychuy Fam MD [address] [place] [address] 04/29/2025 2:45 PM EST Office Visit [facility] [address] [place] [address] Angelica Henley FNP 230 [place] [address] 07/05/2025 1:30 PM EST Office Visit [facility] [address] [place] [address] Tarka, Altagracia, OD [address] [place] [address] 07/07/2025 3:30 PM EST Office Visit [facility] [address] [place] [address] Marychuy Fam MD [address] [place] [address] documented as of this encounter Visit Diagnoses Diagnosis Uncomplicated opioid dependence (CMS/HCC) (HCC) documented in this encounter Care Teams Invas Tech Relationship Specialty Start Date End Date Angelica Henley FNP [address] [place] [address] PCP - General Family Medicine 11/02/21 documented as of this encounter
--- OUTSIDE RECORDS SUMMARY | 2025-04-11 18:49 | XMS_ITS | Patient Health Record ---
Author Organization [facility] Address [address] [facility], [address] [place] [address] Support Name Relationship Address Phone Venancio Chakraborty Guarantor Unknown [phone] Reason For Referral No Information Plan Of Treatment No Information
--- OUTSIDE RECORDS SUMMARY | 2025-04-11 18:49 | XMS_ITS | Encounter Summary ---
Author Organization [employer] Address [address] [place] [address] 7 [place] [address] Care Team Providers Care Butter Maker Name Role Phone [facility] Primary Care Provider [phone] Reason for Visit * Reason Comments Med Refill Encounter Details Date Type Department Care Team ([facility] Contact Info) Description 08/13/2023 Refill [facility] [address] [place] [address] Angelica Henley [facility] [address] [place] [address] Opioid type dependence, continuous (CMS/HCC) Social History [...] Upcoming Encounters Date Type Department Care Team ([facility] Contact Info) Description 04/14/2025 3:00 PM EDT Office Visit [facility] [address] [place] [address] Marychuy Fam MD [address] [place] [address] 04/29/2025 2:45 PM EST Office Visit [facility] [address] [place] [address] Angelica Henley [facility] [address] [place] [address] 07/05/2025 1:30 PM EST Office Visit [facility] [address] [place] [address] Altagracia Simmons, OD 267 [place] [address] 07/07/2025 3:30 PM EST Office Visit [facility] [address] [place] [address] Marychuy Fam MD [address] [place] [address] documented as of this encounter Visit Diagnoses Diagnosis Opioid type dependence, continuous (CMS/HCC) (HCC) Opioid type dependence, continuous documented in this encounter Care Teams Butter Maker Relationship Specialty Start Date End Date Angelica Henley FNP [address] [place] [address] PCP - General Family Medicine 11/02/21 documented as of this encounter
--- OUTSIDE RECORDS SUMMARY | 2025-04-11 18:49 | XMS_ITS | Encounter Summary ---
Author Organization [employer] Address [address] [place] [address] 7 [place] [address] Care Team Providers Care System Support Developer Name Role Phone Angelica Henley [facility] Primary Care Provider [phone] Reason for Visit * Reason Comments Med Refill Encounter Details Date Type Department Care Team (Late Contact Info) Description 12/20/2022 Refill [facility] [address] [place] [address] Peterson Black MD [address] [place] [address] Uncomplicated opioid dependence (CMS/HCC) Social History Tobacco [...] Upcoming Encounters Date Type Department Care Team ([facility] Contact Info) Description 04/14/2025 3:00 PM EDT Office Visit [facility] [address] [place] [address] Marychuy Fam MD [address] [place] [address] [phone] 04/29/2025 2:45 PM EST Office Visit [facility] [address] [place] [address] [facility] [address] [place] [address] 07/05/2025 1:30 PM EST Office Visit [facility] [address] [place] [address] Altagracia Simmons, OD 267 [place] [address] 07/07/2025 3:30 PM EST Office Visit [facility] 230 [place] [address] Marychuy Fam MD [address] [place] [address] documented as of this encounter Visit Diagnoses Diagnosis Uncomplicated opioid dependence (CMS/HCC) (HCC) documented in this encounter Care Teams System Support Developer Relationship Specialty Start Date End Date LoryAngelica ray FNP [address] [place] [address] PCP - General Family Medicine 11/02/21 documented as of this encounter
--- OUTSIDE RECORDS SUMMARY | 2025-04-11 18:49 | XMS_ITS | Encounter Summary ---
Author Organization [employer] Address [address] [place] [address] 7t [place] [address] Care Team Providers Care Foamite Mixer Name Role Phone Angelica Henley [employer] Primary Care Provider [phone] Encounter Details Date Type Department Care Team (Late Contact Info) Description 05/17/2022 Orders Only [facility] [address] [place] [address] Peterson Black MD [address] [place] [address] [phone] Opioid type dependence, continuous (CMS/[facility]) Social History Tobacco Use Types [...] Description 04/14/2025 3:00 PM EDT Office Visit [facility] [address] [place] [address] Marychuy Fam MD [address] [place] [address] 04/29/2025 2:45 PM EST Office Visit [facility] [address] [place] [address] Lory Angelica [facility] 230 [place] [address] 07/05/2025 1:30 PM EST Office Visit [facility] [address] [place] [address] Altagracia Simmons, OD [address] [place] [address] 07/07/2025 3:30 PM EST Office Visit [facility] [address] [place] [address] Marychuy Fam MD [address] [place] [address] documented as of this encounter Visit Diagnoses Diagnosis Opioid type dependence, continuous (CMS/HCC) ([facility]) Opioid type dependence, continuous documented in this encounter Care Teams Foamite Mixer Relationship Specialty Start Date End Date Lory GISEL DominguezP [address] [place] [address] PCP - General Family Medicine 11/02/21 documented as of this encounter
--- OUTSIDE RECORDS SUMMARY | 2025-04-11 18:49 | XMS_ITS | Encounter Summary ---
Author Organization [employer] Address [address] [facility] 7t [place] [address] Care Team Providers Care Muffle Worker Name Role Phone Angelica Henley [facility] Primary Care Provider [phone] Reason for Visit * Reason Onset Date Comments Med Refill 04/07/2025 Encounter Details Date Type Department Care Team ([facility] st Contact Info) Description 04/07/2025 Refill [facility] [address] [place] [address] Marychuy Fam MD [address] [place] [address] Uncomplicated opioid dependence (CMS/HCC) ([facility] Social History Tobacco Use Types Packs/Day Years Used Date Smoking Tobacco: Every Day Cigarettes Passive Smoke Exposure: Current Alcohol Use Standard Drinks/Week Comments Never 0 [...] Description 04/14/2025 3:00 PM EDT Office Visit [facility] [address] [place] [address] Marychuy Fam MD [address] [place] [address] 04/29/2025 2:45 PM EST Office Visit [facility] [address] [place] [address] [facility] [address] [place] [address] 07/05/2025 1:30 PM EST Office Visit [facility] [address] [place] [address] Tarka, Altagracia, OD [address] [place] [address] 07/07/2025 3:30 PM EST Office Visit [facility] [address] [place] [address] Marychuy Fam MD [address] [place] [address] documented as of this encounter Visit Diagnoses Diagnosis Uncomplicated opioid dependence (CMS/HCC) (HCC) documented in this encounter Additional Health Concerns Assessment Noted Time PHQ-9 Depression Total Score: 25 025 10:41 AM EDT documented as of this encounter Care Teams Muffle Worker Relationship Specialty Start Date End Date Angelica Henley FNP [address] [place] [address] PCP - General Family Medicine 11/02/21 documented as of this encounter
--- OUTSIDE RECORDS SUMMARY | 2025-04-11 18:49 | XMS_ITS | Encounter Summary ---
Author Organization [employer] Address [address] [facility] 7t [place] [address] Care Team Providers Care Shop Steward Name Role Phone Angelica Henley [facility] Primary Care Provider [phone] Reason for Visit * Reason Onset Date Comments Nurse Triage 12/26/2022 Encounter Details Date Type Department Care Team (Late st Contact Info) Description 12/26/2022 Telephone [facility] [address] [place] [address] [facility] [address] [place] [address] Nurse Triage Social History Tobacco Use Types [...] 12/26/2022 3:14 PM EDT Triage call with [employer] Accounting Intern ID [id number] Pt reports dizziness for almost a month [...] accepted this outcome Please contact pt at [phone] (Occitan speaker) documented in this encounter Plan of Treatment Upcoming Encounters Date Type Department Care Team (Late st Contact Info) Description 04/14/2025 3:00 PM EDT Office Visit [facility] [address] [place] [address] Marychuy Fam MD [address] [place] [address] 04/29/2025 2:45 PM EST Office Visit [facility] [address] [place] [address] Angelica Henley FNP 230 [place] [address] 07/05/2025 1:30 PM EST Office Visit [facility] [address] [place] [address] Altagracia Simmons, OD 267 [place] [address] 07/07/2025 3:30 PM EST Office Visit [facility] [address] [place] [address] Marychuy Fam MD [address] [place] [address] documented as of this encounter Visit Diagnoses Not on filedocumented in this encounter Care Teams Shop Steward Relationship Specialty Start Date End Date Angelica Henley FNP [address] [place] [address] PCP - General Family Medicine 11/02/21 documented as of this encounter
--- OUTSIDE RECORDS SUMMARY | 2025-04-11 18:49 | XMS_ITS | Clinical Summary ---
Author Organization [employer] Address [address] [facility] 7t [place] [address] Care Team Providers Care Body Shop Mechanic Name Role Phone Angelica Henley [facility] Primary Care Provider [phone] Allergies Active Allergy Reactions Criticality Noted Date Comments Sulfa Antibiotics Rash Low 04/21/2020 Other reaction(s): rash, rash Medications * This document contains information received from the source organization and may not represent a complete record from that organization. hydrOXYzine HCl (Atarax) 50 MG tablet take 1 Tablet by oral route 4x/day prn anxiety Active lidocaine (Lidoderm) 5 % patch Place 1 patch on the skin. Active tiZANidine (Zanaflex) 4 MG capsule take 1 capsule by oral route qhs x 1w then qhs prn muscle spasm Active carbamide peroxide (Debrox) 6.5 % otic solution 5 drops every 12 (twelve) hours. Active terbinafine (LamISIL) 1 % cream Apply topically. Active albuterol (ProAir HFA) 108 (90 Base) MCG/ACT inhaler Inhale 2 puffs every 4 (four) hours if needed. Active nicotine polacrilex (Commit) 4 MG lozenge Take 1 tablet by mouth every 2 (two) hours. Active naloxone (Narcan) 4 mg/0.1 mL nasal [...] mg) by mouth at bedtime. 5 capsule 023 Active Blood Pressure kit 1 kit in the morning. 1 kit 024 Active Symbicort 80-4.5 MCG/ACT inhaler INHALE 2 PUFFS BY MOUTH TWICE DAILY IN THE MORNING AND IN THE EVENING RINSE MOUTH AFTER USING. 10.2 g 3 024 Active gabapentin (Neurontin) 400 MG capsuleIndicatio ns:Insomnia, unspecified type TAKE 1 CAPSULE BY MOUTH EVERY DAY AT BEDTIME 30 capsule 024 Active buprenorphine ER (Sublocade) 300 mg/1.5mL injectionIndicat ions:Opioid dependence, uncomplicated (CMS/HCC) ([facility]) Inject 1.5 mL (1 each) under the skin every month to absorb continually. 1.5 mL 1 024 Active ibuprofen 600 MG tablet Take 1 tablet (600 mg) by mouth every 6 (six) hours if needed for mild pain for up to 20 doses. 20 tablet 024 Active mirtazapine (Remeron) 7.5 MG tablet Take 7.5 mg by mouth at bedtime. 024 Active varenicline (Chantix Continuing Month Hosea) 1 MG tabletIndication s:Tobacco use Take 1 tablet (1 mg) by mouth 2 times daily. Take with full glass of water. 60 tablet 2 025 Active tamsulosin (Flomax) 0.4 MG 24 hr capsuleIndicatio ns:Lower urinary tract symptoms Take 1 capsule (0.4 mg) by mouth Once per day. 30 capsule 1 025 Active cloNIDine (Catapres) 0.1 MG tabletIndication s:Opioid type dependence, continuous (CMS/HCC) ([facility]) TAKE 1 TABLET BY MOUTH THREE TIMES DAILY 90 tablet 1 025 Active Suboxone 12-3 MG per sublingual filmIndications: Uncomplicated opioid dependence (CMS/HCC) ([facility]) Place 1 Film under the tongue [address] 1 film by sublingual route 2 times every day and allow to dissolve slowly in mouth without chewing or swallowing. 56 Film 2 025 2025 Active Suboxone 12-3 MG per sublingual filmIndications: Uncomplicated opioid dependence (CMS/HCC) ([facility]) Place 1 Film under the tongue [address] 1 film by sublingual route 2 times every day and allow to dissolve slowly in mouth without chewing or swallowing. 56 Film 1 025 2024 Discontinued(R eorder (will not trigger notification to Pharmacy)) Hospital, Clinic, or Other Facility Administered Medication [...] Encounters Date Type Department Care Team Description 04/07/2025 Refill [facility] [address] [place] [address] Marychuy Fam MD Uncomplicated opioid dependence (CMS/HCC) ([facility]) 03/28/2025 Orders Only GENERIC EXTERNAL DATA DEPARTMENT Provider, Generic External Data 03/18/2025 Orders Only [facility] External Provider, [facility] 03/07/2025 Refill [facility] [address] [place] [phone] Angelica Henley FNP Opioid type dependence, continuous ([facility]/HCC) 02/17/2025 2:30 PM EDT Office Visit [address] [address] Marychuy Fam MD Uncomplicated opioid dependence ([facility]) (Primary Dx) 02/17/2025 Travel 02/10/2025 Refill [facility] [address] [place] [address] Marychuy Fam MD Uncomplicated opioid dependence ([facility]) 01/20/2025 Telephone [facility] [address] [place] [address] Angelica Henley FNP chart prep 01/20/[address] [address] Angelica Henley FNP 01/12/2025 Patient Outreach [address] [address] Angelica Henley FNP Pre-visit Planning ([facility] screening completed on 07/22/2024) from Last 3 Months Immunizations Immunization Administration [...] Description 04/14/2025 3:00 PM EDT Office Visit [facility] [address] [place] [address] Marychuy Fam MD [address] [place] [address] 04/29/2025 2:45 PM EST Office Visit [facility] [address] [place] [address] Lory, Angelica, RESOURCE TEACHER [address] [place] [address] 07/05/2025 1:30 PM EST Office Visit [facility] [address] [place] [address] Tarka Altagracia, OD [address] [place] [address] 07/07/2025 3:30 PM EST Office Visit [facility] [address] [place] [address] Marychuy Fam MD [address] [place] [address] Health Maintenance Due Date Last Done Comments [...] RETROPERITONEAL COMPLETE Routine 03/18/2025 2:47 PM EDT HIV 1/2 ANTIGEN/ANTIBODY, FOURTH GENERATION W/RFL Routine [...] Specific Antigen 1.45 <0.05 - 4.0 ng/mL [facility] Comment:PSA methodology: Genet Díaz i ChemiluminescentMicroparticle Immunoassay (CMIA) 03/28/2025 1:20 PM EDT 03/28/2025 4:02 PM EDT us Generic External Data Provider LAB BLOOD ORDERAB LES Final Result [facility] [address] [place] [phone] * US Scrotum (03/18/2025 3:51 PM EDT) Anatomical Region Laterality Modality Body Ultrasound 03/18/2025 3:51 PM EDT Narrative 03/18/2025 5:12 PM EDT [address] [address] Ultrasound Report Signed Patient: Venancio Navarrete MR#: [id number] : 1975 Acct:[id number] Age/Sex: 49 / M ADM Date: 03/18/25 Loc: HO.US Attending Dr: Nay Lutz [facility] Ordering Physician: Nay Lutz Date of Service: 03/18/25 Procedure(s): US scrotum Accession Number(s): [id number] cc: Nay Lutz [facility]; [facility] Reason for Exam: N50.82 - Scrotal pain [...] 03/18/25 1709 DD/ 1551 TD/TT: 03/18/25 1615 Quality Control Scientist: ADALI Procedure Note Donotuseinterpreter, Image - 03/18/2025 [place] [address] Ultrasound Report Signed Patient: Venancio NavarreteMR#: M [id number] : 1975Acct:[id number] Age/Sex: 49 / MADM Date: 03/18/25 Loc: HO.US Attending Dr: Nay MEDINA Ordering Physician: Nay Lutz Date of Service: 03/18/25 Procedure(s): US scrotum Accession Number(s): [id number] cc: Nay Lutz; [facility] Reason for Exam: N50.82 - Scrotal pain [...] 03/18/25 1709 DD/ 1551 TD/TT: 03/18/25 1615 Quality Control Scientist: ADALI us [facility] External Provider IMG US PROCEDURES Final Result * US Retroperitoneal Complete (03/18/2025 2:47 PM EDT) Anatomical Region Laterality Modality Ultrasound 03/18/2025 2:47 PM EDT Narrative 03/21/2025 7:09 AM EDT [place] [address] Ultrasound Report Signed Patient: Venancio Navarrete MR#: [id number] : 1975 Acct:[id number] Age/Sex: 49 / M ADM Date: 03/18/25 Loc: HO.US Attending Dr: Nay MEDINA Ordering Physician: Nay Lutz Date of Service: 03/18/25 Procedure(s): US retroperitoneal comp Accession Number(s): [id number] cc: Nay Lutz; [facility] Reason for Exam: R39.12 - Poor urinary [...] 03/21/25 0706 DD/ 1447 TD/TT: 03/18/25 1541 Quality Control Scientist: Procedure Note Donotuseinterpreter, Image - 03/21/2025 [place] [address] Ultrasound Report Signed Patient: Venancio Navarrete#: M [id number] : 1975Acct:[id number] Age/Sex: 49 / MADM Date: 03/18/25 Loc: HO.US Attending Dr: Nay MEDINA Ordering Physician: Nay Lutz Date of Service: 03/18/25 Procedure(s): US retroperitoneal comp Accession Number(s): [id number] cc: Nay Lutz; [facility] Reason for Exam: R39.12 - Poor urinary [...] 03/21/25 0706 DD/ 1447 TD/TT: 03/18/25 1541 Quality Control Scientist: us [facility] External Provider IMG US PROCEDURES Final Result * HIV-1/2 Antigen and Antibodies, Fourth Generation, with Reflexes (09/17/2024 3:40 PM EDT) HIV AB/AG Nonreactive Nonreactive [facility] Comment:HIV-1 p24 Ag and/or HIV-1/HIV-2 Ab not detected.A test result that is nonreactive does not exclude thepossibility of exposure to or infection with HIV-1 and/orHIV-2. Nonreactive results in this assay for individualswith prior exposure to HIV-1 and/or HIV-2 may be due toantigen and antibody levels that are below the limit ofdetection of this assay.The [employer] HIV Ag/Ab Combo assay result andsupplemental assay results should be interpreted inconjunction with the patient's clinical presentation,history and other laboratory results. If the results areinconsistent with clinical evidence, additional testing issuggested to confirm the result. Blood Venous blood specimen / Unknown 09/17/2024 3:40 PM EDT 09/17/2024 4:14 PM EDT [facility] LAB BLOOD ORDERABLES Final Re sult Performing Organization Address City/[facility]/ZIP Co de Phone Number [facility] [address] [place] [phone] * Hepatitis C Antibody with Reflex to HCV, RNA, Quantitative, Real-Time PCR (06/28/2024 1:45 PM EST) [facility] Hepatitis C Antibody Nonreactive Nonreactive [facility] Comment:Antibodies to HCV no t detected; does not exclude early acuteHCV infection. 06/28/2024 1:45 PM EST 06/28/2024 4:09 PM EST Marychuy Fam MD LAB BLOOD ORDERABLES Final R esult Performing Organization Address City/[facility]/ZIP Co de Phone Number [facility] [address] [place] [phone] * (ABNORMAL) Lipid Panel, Standard (06/28/2024 1:45 PM EST) [facility] Triglycerides 78 <150 mg/dL [facility] Comment:Desirable Triglyceri de: less than 150 mg/dLBorderline High Triglyceride 150-199 mg/dLHigh Triglyceride: 200-499 mg/dLVery High Triglyceride: greater than or equal to 5OO mg/dL Cholesterol 169 <200 mg/dL [facility] Comment:Desirable Cholestero l: less than 200 mg/dLBorderline High Cholesterol: 200-239 mg/dLHigh Cholesterol: greater than 239 mg/dL LDL Cholesterol Calculated 100(H) <100 mg/dL [facility] Comment:Desirable LDL: less than 100 mg/dLNear Optimal/Above Optimal LDL: 110- 129 mg/dLBorderline High LDL: 130-159 mg/dLHigh LDL: 160-189 mg/dLVery High LDL: greater than or equal to 190 mg/dL HDL Cholesterol 54 >40 mg/dL [facility] Comment:Desirable HDL: great er than 40 mg/dL Note: This HDL assay may give artificially low results in patients with liver disease. Blood Venous blood specimen / Unknown 06/28/2024 1:45 PM EST 06/28/2024 4:09 PM EST [facility] RESOURCE TEACHER LAB BLOOD ORDERABLES Final Re sult Performing Organization Address City/State/[facility] Co de Phone Number [facility] [address] [place] [phone] from Last 3 Months or Most Recently Relevant to Health Maintenance Insurance [facility] [place], [place] DENTAL - HSN PARTIAL (MEDICAID) [place], [place] DENT[place] - HSN PARTIAL (MEDICAID) Care Teams Body Shop Mechanic Relationship Specialty Start Date End Date Angelica Henley FNP [address] [place] [address] PCP - General Family Medicine 11/02/21
--- OUTSIDE RECORDS SUMMARY | 2025-04-11 18:49 | XMS_ITS | Encounter Summary ---
Author Organization [employer] Address [address] [facility] 7t [place] [address] Care Team Providers Care Wine Cellar Stock Clerk Name Role Phone [facility] Primary Care Provider [phone] Encounter Details Date Type Department Care Team ([facility] st Contact Info) Description 10/05/2024 Telephone [facility] [address] [place] [address] [facility] 230 [place] [address] Social History Tobacco Use Types Packs/Day Years [...] Description 04/14/2025 3:00 PM EDT Office Visit [facility] [address] [place] [address] Marychuy Fam MD 230 [place] [address] 04/29/2025 2:45 PM EST Office Visit [facility] [address] [place] [address] Angelica Henley FNP 230 [place] [address] 07/05/2025 1:30 PM EST Office Visit [facility] [address] [place] [address] TarkaAltagracia, OD [address] [place] [address] 07/07/2025 3:30 PM EST Office Visit [facility] [address] [place] [address] Marychuy Fam MD [address] [place] [address] documented as of this encounter Visit Diagnoses Not on filedocumented in this encounter Care Teams Wine Cellar Stock Clerk Relationship Specialty Start Date End Date Angelica Henley FNP [address] [place] [phone] PCP - General Family Medicine 11/02/21 documented as of this encounter
--- OUTSIDE RECORDS SUMMARY | 2025-04-11 18:49 | XMS_ITS | Encounter Summary ---
Author Organization [employer] Address [address] [place] [address] 7 [place] [address] Care Team Providers Care Director Of Advertising Sales Name Role Phone Angelica Henley [facility] Primary Care Provider [phone] Reason for Visit * Reason Comments Med Refill Encounter Details Date Type Department Care Team (Late Contact Info) Description 09/25/2023 Refill [facility] [address] [place] [address] Tiburcio Horvath MD [address] [place] [phone] Uncomplicated opioid dependence (CMS/HCC) Social History Tobacco [...] Description 04/14/2025 3:00 PM EDT Office Visit [facility] [address] [place] [address] Marychuy Fam MD [address] [place] [address] [phone] 04/29/2025 2:45 PM EST Office Visit [facility] [address] [place] [address] Angelica Henley [address] [address] 07/05/2025 1:30 PM EST Office Visit [facility] [address] [place] [address] Altagracia Simmons, OD [address] [place] [address] 07/07/2025 3:30 PM EST Office Visit [facility] 230 [place] [address] Marychuy Fam MD 230 [place] [address] documented as of this encounter Visit Diagnoses Diagnosis Uncomplicated opioid dependence (CMS/HCC) (HCC) documented in this encounter Care Teams Director Of Advertising Sales Relationship Specialty Start Date End Date LoryAngelica ray FNP [address] [place] [address] PCP - General Family Medicine 11/02/21 documented as of this encounter
== END 2025-04-15 15:59 | disposition home or self-care (01) ==
LOC: HO.HGI 15:48
PROVIDERS: PCP Registered Nurse; Visit Provider Nurse Practitioner Family
DX: K59.01 Slow transit constipation (principal); K21.9 Gastro-esophageal reflux disease without esophagitis; R14.0 Abdominal distension (gaseous)
CPT/HCPCS: 99204

== ENCOUNTER 2025-04-11 15:47 | Outpatient (REF) | payer OTHER, SELFPAY ==
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
--- OUTSIDE RECORDS SUMMARY | 2025-04-12 20:18 | XMS_ITS | Encounter Summary ---
Author Organization [employer] Address [address] [place] [address] 7t [place] [address] Care Team Providers Care Mining Engineer Name Role Phone Angelica Henley INTEGRATED CIRCUITS INSPECTOR Primary Care Provider [phone] Encounter Details Date Type Department Care Team (Late Contact Info) Description 05/17/2022 Orders Only [facility] [address] [place] [address] Peterson Black MD [address] [place] [address] [phone] Opioid type dependence, continuous (CMS/[facility]) Social History Tobacco Use Types [...] Description 04/14/2025 3:00 PM EDT Office Visit [facility] [address] [place] [address] Marychuy Fam MD [address] [place] [address] 04/29/2025 2:45 PM EST Office Visit [facility] 230 [place] [address] Lory Angelica [facility] 230 [place] [address] 07/05/2025 1:30 PM EST Office Visit [facility] [address] [place] [address] Altagracia Simmons, OD 267 [place] [address] 07/07/2025 3:30 PM EST Office Visit [facility] 230 [place] [address] Marychuy Fam MD 230 [place] [address] documented as of this encounter Visit Diagnoses Diagnosis Opioid type dependence, continuous (CMS/HCC) ([facility]) Opioid type dependence, continuous documented in this encounter Care Teams Mining Engineer Relationship Specialty Start Date End Date Lory GISEL DominguezP [address] [place] [address] PCP - General Family Medicine 11/02/21 documented as of this encounter
--- OUTSIDE RECORDS SUMMARY | 2025-04-12 20:18 | XMS_ITS | Patient Health Record ---
Author Organization [facility] Address [address] [facility], [address] [place] [address] Support Name Relationship Address Phone Venancio Chakraborty Guarantor Unknown Reason For Referral No Information Plan Of Treatment No Information
--- OUTSIDE RECORDS SUMMARY | 2025-04-12 20:18 | XMS_ITS | Encounter Summary ---
Author Organization [employer] Address [address] [facility] 7t [place] [address] Care Team Providers Care Boilermaker Pipe Fitter Name Role Phone [place] [facility] Primary Care Provider [phone] Encounter Details Date Type Department Care Team ([facility] st Contact Info) Description 10/05/2024 Telephone [facility] 230 [place] [address] [place] [facility] 230 [place] [address] Social History Tobacco Use Types Packs/Day Years [...] Description 04/14/2025 3:00 PM EDT Office Visit [facility] [address] [place] [address] Marychuy Fam MD 230 [place] [address] 04/29/2025 2:45 PM EST Office Visit [facility] 230 [place] [address] Angelica Henley FNP 230 [place] [address] 07/05/2025 1:30 PM EST Office Visit [facility] [address] [place] [address] TarkaAltagracia, OD 267 [place] [address] 07/07/2025 3:30 PM EST Office Visit [facility] 230 [place] [address] Marychuy Fam MD 230 [place] [address] documented as of this encounter Visit Diagnoses Not on filedocumented in this encounter Care Teams Boilermaker Pipe Fitter Relationship Specialty Start Date End Date Angelica Henley FNP [address] [place] [phone] PCP - General Family Medicine 11/02/21 documented as of this encounter
--- OUTSIDE RECORDS SUMMARY | 2025-04-12 20:18 | XMS_ITS | Encounter Summary ---
Author Organization [employer] Address [address] [place] [address] 7 [place] [address] Care Team Providers Care Rotary Dryer Operator Name Role Phone Angelica Henley [facility] Primary Care Provider [phone] Reason for Visit * Reason Comments Med Refill Encounter Details Date Type Department Care Team (Late Contact Info) Description 09/25/2023 Refill [facility] [address] [place] [address] Tiburcio Horvath MD [address] [place] [phone] Uncomplicated opioid dependence (CMS/HCC) Social History Tobacco [...] Office Visit [facility] [address] [place] [address] Marychuy Fam MD [address] [place] [address] [phone] 04/29/2025 2:45 PM EST Office Visit [facility] [address] [place] [address] Angelica Henley [address] [address] 07/05/2025 1:30 PM EST Office Visit [facility] [address] [place] [address] Altagracia Simmons, OD 267 [place] [address] 07/07/2025 3:30 PM EST Office Visit [facility] 230 [place] [address] Marychuy Fam MD 230 [place] [address] documented as of this encounter Visit Diagnoses Diagnosis Uncomplicated opioid dependence (CMS/HCC) (HCC) documented in this encounter Care Teams Rotary Dryer Operator Relationship Specialty Start Date End Date LoryAngelica ray FNP [address] [place] [phone] PCP - General Family Medicine 11/02/21 documented as of this encounter
--- OUTSIDE RECORDS SUMMARY | 2025-04-12 20:18 | XMS_ITS | Encounter Summary ---
Author Organization [employer] Address [address] [facility] 7t [place] [address] Care Team Providers Care Launderer Hand Name Role Phone Angelica Henley SKATE SHOP ATTENDANT Primary Care Provider [phone] Reason for Visit * Reason Comments Med Refill Encounter Details Date Type Department Care Team ([facility] st Contact Info) Description 01/15/2024 Refill [facility] [address] [place] [address] Marychuy Fam MD 230 [place] [address] Uncomplicated opioid dependence (CMS/HCC) Social History Tobacco [...] Description 04/14/2025 3:00 PM EDT Office Visit [facility] [address] [place] [address] Marychuy Fam MD [address] [place] [address] 04/29/2025 2:45 PM EST Office Visit [facility] [address] [place] [address] Angelica Henley FNP 230 [place] [address] 07/05/2025 1:30 PM EST Office Visit [facility] [address] [place] [address] Tarka, Altagracia, OD 267 [place] [address] 07/07/2025 3:30 PM EST Office Visit [facility] [address] [place] [address] Marychuy Fam MD 230 [place] [address] documented as of this encounter Visit Diagnoses Diagnosis Uncomplicated opioid dependence (CMS/HCC) (HCC) documented in this encounter Care Teams Launderer Hand Relationship Specialty Start Date End Date Angelica Henley FNP [address] [place] [phone] PCP - General Family Medicine 11/02/21 documented as of this encounter
--- OUTSIDE RECORDS SUMMARY | 2025-04-12 20:18 | XMS_ITS | Encounter Summary ---
Author Organization [employer] Address [address] [place] [address] 7 [place] [address] Care Team Providers Care Basin Cleaner Name Role Phone L[place] [facility] Primary Care Provider [phone] Reason for Visit * Reason Comments Med Refill Encounter Details Date Type Department Care Team ([facility] Contact Info) Description 08/13/2023 Refill [facility] [address] [place] [address] [facility] [address] [place] [address] Opioid type dependence, continuous (CMS/HCC) Social History [...] Upcoming Encounters Date Type Department Care Team ([facility] Contact Info) Description 04/14/2025 3:00 PM EDT Office Visit [facility] [address] [place] [address] Marychuy Fam MD [address] [place] [address] 04/29/2025 2:45 PM EST Office Visit [facility] [address] [place] [address] [facility] [address] [place] [address] 07/05/2025 1:30 PM EST Office Visit [facility] [address] [place] [address] Altagracia Simmons, OD 267 [place] [address] 07/07/2025 3:30 PM EST Office Visit [facility] 230 [place] [address] Marychuy Fam MD 230 [place] [address] documented as of this encounter Visit Diagnoses Diagnosis Opioid type dependence, continuous (CMS/HCC) (HCC) Opioid type dependence, continuous documented in this encounter Care Teams Basin Cleaner Relationship Specialty Start Date End Date Angelica Henley FNP [address] [place] [address] PCP - General Family Medicine 11/02/21 documented as of this encounter
--- OUTSIDE RECORDS SUMMARY | 2025-04-12 20:18 | XMS_ITS | Clinical Summary ---
Author Organization [email or web address] Address [address] [facility] 7t [place] [address] Care Team Providers Care Night Guard Name Role Phone Angelica Henley [facility] Primary Care Provider [phone] Allergies Active Allergy Reactions Criticality Noted Date [...] 300 mg/1.5mL injectionIndicat ions:Opioid dependence, uncomplicated (CMS/HCC) ([facility]) Inject 1.5 mL (1 each) under [...] MG tabletIndication s:Opioid type dependence, continuous (CMS/HCC) ([facility]) TAKE 1 TABLET BY MOUTH THREE TIMES DAILY 90 tablet 1 025 Active Suboxone 12-3 MG per sublingual filmIndications: Uncomplicated opioid dependence (CMS/HCC) ([facility]) Place 1 Film under the tongue [address] 1 film by sublingual route 2 times every day and allow to dissolve slowly in mouth without chewing or swallowing. 56 Film 2 025 2025 Active Suboxone 12-3 MG per sublingual filmIndications: Uncomplicated opioid dependence (CMS/HCC) ([facility]) Place 1 Film under the tongue [...] Type Department Care Team Description 04/07/2025 Refill [facility] [address] [place] [address] Marychuy Fam MD Uncomplicated opioid dependence (CMS/HCC) ([facility]) 03/28/2025 Orders Only GENERIC EXTERNAL DATA DEPARTMENT Provider, Generic External Data 03/18/2025 Orders Only [facility] External Provider, [facility] 03/07/2025 Refill [facility] [address] [place] [phone] Angelica Henley FNP Opioid type dependence, continuous ([facility]/HCC) 02/17/2025 2:30 PM EDT Office Visit [address] [address] Marychuy Fam MD Uncomplicated opioid dependence ([facility]) (Primary Dx) 02/17/2025 Travel 02/10/2025 Refill [facility] [address] [place] [address] Marychuy Fam MD Uncomplicated opioid dependence ([facility]) 01/20/2025 Telephone [facility] [address] [place] [address] Angelica Henley FNP chart prep 01/20/[address] [address] Angelica Henley FNP 01/12/2025 Patient Outreach [address] [address] Angelica Henley FNP Pre-visit Planning ([facility] screening completed on 07/22/2024) [...] Description 04/14/2025 3:00 PM EDT Office Visit [facility] [address] [place] [address] Marychuy Fam MD [address] [place] [address] 04/29/2025 2:45 PM EST Office Visit [facility] [address] [place] [address] Lory, Angelica, APPLICATION INTEGRATOR [address] [place] [address] 07/05/2025 1:30 PM EST Office Visit [facility] [address] [place] [address] Tarka Altagracia, OD [address] [place] [address] 07/07/2025 3:30 PM EST Office Visit [facility] [address] [place] [address] Marychuy Fam MD [address] [place] [address] Health Maintenance Due Date Last Done Comments [...] Specific Antigen 1.45 <0.05 - 4.0 ng/mL [facility] Comment:PSA methodology: Genet Díaz i ChemiluminescentMicroparticle Immunoassay (CMIA) 03/28/2025 1:20 PM EDT 03/28/2025 4:02 PM EDT us Generic External Data Provider LAB BLOOD ORDERAB LES Final Result [facility] [address] [place] [phone] * US Scrotum (03/18/2025 3:51 PM EDT) Anatomical Region Laterality Modality Body Ultrasound 03/18/2025 3:51 PM EDT Narrative 03/18/2025 5:12 PM EDT [address] [address] Ultrasound Report Signed Patient: Venancio Navarrete MR#: [id number] : 1975 Acct:[id number] Age/Sex: 49 / M ADM Date: 03/18/25 Loc: HO.US Attending Dr: Nay Lutz [facility] Ordering Physician: Nay Lutz Date of Service: 03/18/25 Procedure(s): US scrotum Accession Number(s): [id number] cc: Nay Lutz [facility]; [facility] Reason for Exam: N50.82 - Scrotal [...] 03/18/25 1709 DD/ 1551 TD/TT: 03/18/25 1615 Corporate Executive: ADALI Procedure Note Donotuseinterpreter, Image - 03/18/2025 [place] [address] Ultrasound Report Signed Patient: Venancio NavarreteMR#: M [id number] : 1975Acct:[id number] Age/Sex: 49 / MADM Date: 03/18/25 Loc: HO.US Attending Dr: Nay MEDINA Ordering Physician: Nay Lutz Date of Service: 03/18/25 Procedure(s): US scrotum Accession Number(s): [id number] cc: Nay Lutz; [facility] Reason for Exam: N50.82 - Scrotal [...] 03/18/25 1709 DD/ 1551 TD/TT: 03/18/25 1615 Corporate Executive: ADALI us [facility] External Provider IMG US PROCEDURES Final Result * US Retroperitoneal Complete (03/18/2025 2:47 PM EDT) Anatomical Region Laterality Modality Ultrasound 03/18/2025 2:47 PM EDT Narrative 03/21/2025 7:09 AM EDT [place] [address] Ultrasound Report Signed Patient: Venancio Navarrete MR#: [id number] : 1975 Acct:[id number] Age/Sex: 49 / M ADM Date: 03/18/25 Loc: HO.US Attending Dr: Nay MEDINA Ordering Physician: Nay Lutz Date of Service: 03/18/25 Procedure(s): US retroperitoneal comp Accession Number(s): [id number] cc: Nay Lutz; [facility] Reason for Exam: R39.12 - Poor [...] 03/21/25 0706 DD/ 1447 TD/TT: 03/18/25 1541 Corporate Executive: Procedure Note Donotuseinterpreter, Image - 03/21/2025 [place] [address] Ultrasound Report Signed Patient: Venancio Navarrete#: M [id number] : 1975Acct:[id number] Age/Sex: 49 / MADM Date: 03/18/25 Loc: HO.US Attending Dr: Nay MEDINA Ordering Physician: Nay Lutz Date of Service: 03/18/25 Procedure(s): US retroperitoneal comp Accession Number(s): [id number] cc: Nay Lutz; [facility] Reason for Exam: R39.12 - Poor [...] 03/21/25 0706 DD/ 1447 TD/TT: 03/18/25 1541 Corporate Executive: us [facility] External Provider IMG US PROCEDURES Final Result * HIV-1/2 Antigen and Antibodies, Fourth Generation, with Reflexes (09/17/2024 3:40 PM EDT) HIV AB/AG Nonreactive Nonreactive [facility] Comment:HIV-1 p24 Ag and/or HIV-1/HIV-2 Ab not detected.A test result that is nonreactive does not exclude thepossibility of exposure to or infection with HIV-1 and/orHIV-2. Nonreactive results in this assay for individualswith prior exposure to HIV-1 and/or HIV-2 may be due toantigen and antibody levels that are below the limit ofdetection of this assay.The [employer] HIV Ag/Ab Combo assay result andsupplemental assay results should be interpreted inconjunction with the patient's clinical presentation,history and other laboratory results. If the results areinconsistent with clinical evidence, additional testing issuggested to confirm the result. Blood Venous blood specimen / Unknown 09/17/2024 3:40 PM EDT 09/17/2024 4:14 PM EDT [facility] LAB BLOOD ORDERABLES Final Re sult Performing Organization Address City/[facility]/ZIP Co de Phone Number [facility] [address] [place] [phone] * Hepatitis C Antibody with Reflex to HCV, RNA, Quantitative, Real-Time PCR (06/28/2024 1:45 PM EST) [facility] [address] [facility] Hepatitis C Antibody Nonreactive Nonreactive [facility] Comment:Antibodies to HCV no t detected; does not exclude early acuteHCV infection. 06/28/2024 1:45 PM EST 06/28/2024 4:09 PM EST Marychuy Fam MD LAB BLOOD ORDERABLES Final R esult Performing Organization Address City/[facility]/ZIP Co de Phone Number [facility] [address] [place] [phone] * (ABNORMAL) Lipid Panel, Standard (06/28/2024 1:45 PM EST) [facility] [address] Triglycerides 78 <150 mg/dL [facility] Comment:Desirable Triglyceri de: less than 150 mg/dLBorderline High Triglyceride 150-199 mg/dLHigh Triglyceride: 200-499 mg/dLVery High Triglyceride: greater than or equal to 5OO mg/dL Cholesterol 169 <200 mg/dL [facility] Comment:Desirable Cholestero l: less than 200 mg/dLBorderline High Cholesterol: 200-239 mg/dLHigh Cholesterol: greater than 239 mg/dL LDL Cholesterol Calculated 100(H) <100 mg/dL [facility] Comment:Desirable LDL: less than 100 mg/dLNear Optimal/Above Optimal LDL: 110- 129 mg/dLBorderline High LDL: 130-159 mg/dLHigh LDL: 160-189 mg/dLVery High LDL: greater than or equal to 190 mg/dL HDL Cholesterol 54 >40 mg/dL [facility] Comment:Desirable HDL: great er than 40 mg/dL Note: This HDL assay may give artificially low results in patients with liver disease. Blood Venous blood specimen / Unknown 06/28/2024 1:45 PM EST 06/28/2024 4:09 PM EST [facility] APPLICATION INTEGRATOR LAB BLOOD ORDERABLES Final Re sult Performing Organization Address City/State/[facility] Co de Phone Number [facility] [address] [place] [phone] from Last 3 Months or Most Recently Relevant to Health Maintenance Insurance [facility] [place] D[place] - HSN PARTIAL (MEDICAID) [place], [place] DENT[place] - HSN PARTIAL (MEDICAID) Care Teams Night Guard Relationship Specialty Start Date End Date Angelica Henley FNP [address] [place] [address] PCP - General Family Medicine 11/02/21
--- OUTSIDE RECORDS SUMMARY | 2025-04-12 20:18 | XMS_ITS | Encounter Summary ---
Author Organization [employer] Address [address] [facility] 7t [place] [address] Care Team Providers Care Senior Quality Technician Name Role Phone Angelica Henley [facility] Primary Care Provider [phone] Reason for Visit * Reason Onset Date Comments Nurse Triage 12/26/2022 Encounter Details Date Type Department Care Team (Late st Contact Info) Description 12/26/2022 Telephone [facility] [address] [place] [address] [place] [facility] [address] [place] [address] Nurse Triage Social History Tobacco Use Types [...] 12/26/2022 3:14 PM EDT Triage call with [employer] [id number] Pt reports dizziness for almost a month [...] accepted this outcome Please contact pt at [phone] (Amharic speaker) documented in this encounter Plan of Treatment Upcoming Encounters Date Type Department Care Team (Late st Contact Info) Description 04/14/2025 3:00 PM EDT Office Visit [facility] [address] [place] [address] Marychuy Fam MD [address] [place] [address] 04/29/2025 2:45 PM EST Office Visit [facility] [address] [place] [address] Angelica Henley FNP [address] [place] [address] 07/05/2025 1:30 PM EST Office Visit [facility] [address] [place] [address] Altagracia Simmons, OD [address] [place] [address] 07/07/2025 3:30 PM EST Office Visit [facility] [address] [place] [address] Marychuy Fam MD [address] [place] [address] documented as of this encounter Visit Diagnoses Not on filedocumented in this encounter Care Teams Senior Quality Technician Relationship Specialty Start Date End Date Angelica Henley FNP [address] [place] [address] PCP - General Family Medicine 11/02/21 documented as of this encounter
--- OUTSIDE RECORDS SUMMARY | 2025-04-12 20:18 | XMS_ITS | Encounter Summary ---
Author Organization [employer] Address 75 [facility] 7t [place] [address] Care Team Providers Care C 40A Crew Chief Name Role Phone Angelica Henley [facility] Primary Care Provider [phone] Reason for Visit * Reason Onset Date Comments Med Refill 04/07/2025 Encounter Details Date Type Department Care Team ([facility] st Contact Info) Description 04/07/2025 Refill [facility] [address] [place] [address] Marychuy Fam MD [address] [place] [address] Uncomplicated opioid dependence (CMS/HCC) ([facility]) Social History Tobacco Use Types [...] 3:00 PM EDT Office Visit [facility] [address] [place] [address] Marychuy Fam MD [address] [place] [address] 04/29/2025 2:45 PM EST Office Visit [facility] [address] [place] [address] [facility] [address] [place] [address] 07/05/2025 1:30 PM EST Office Visit [facility] OPTOMET[facility] [address] [place] [address] Tarka, Altagracia, OD [address] [place] [address] 07/07/2025 3:30 PM EST Office Visit [facility] [address] [place] [address] Marychuy Fam MD [address] [place] [address] documented as of this encounter Visit Diagnoses Diagnosis Uncomplicated opioid dependence (CMS/HCC) (HCC) documented in this encounter Additional Health Concerns Assessment Noted Time PHQ-9 Depression Total Score: 25 025 10:41 AM EDT documented as of this encounter Care Teams C 40A Crew Chief Relationship Specialty Start Date End Date Angelica Henley FNP [address] [place] [address] PCP - General Family Medicine 11/02/21 documented as of this encounter
--- OUTSIDE RECORDS SUMMARY | 2025-04-12 20:18 | XMS_ITS | Encounter Summary ---
Author Organization [employer] Address [address] [place] [address] 7 [place] [address] Care Team Providers Care Brake Holder Name Role Phone Angelica Henley [facility] Primary Care Provider [phone] Reason for Visit * Reason Comments Med Refill Encounter Details Date Type Department Care Team (Late Contact Info) Description 12/20/2022 Refill [facility] [address] [place] [address] Peterson Black MD [address] [place] [address] Uncomplicated opioid dependence (CMS/HCC) Social History Tobacco [...] Upcoming Encounters Date Type Department Care Team ([facility] Contact Info) Description 04/14/2025 3:00 PM EDT Office Visit [facility] [address] [place] [address] Marychuy Fam MD [address] [place] [phone] 04/29/2025 2:45 PM EST Office Visit [facility] [address] [place] [address] Angelica Henley [facility] [address] [place] [address] 07/05/2025 1:30 PM EST Office Visit [facility] [address] [place] [address] Altagracia Simmons, OD [address] [place] [address] 07/07/2025 3:30 PM EST Office Visit [facility] [address] [place] [address] Marychuy Fam MD [address] [place] [address] documented as of this encounter Visit Diagnoses Diagnosis Uncomplicated opioid dependence (CMS/HCC) (HCC) documented in this encounter Care Teams Brake Holder Relationship Specialty Start Date End Date LoryAngelica ray FNP [address] [place] [address] PCP - General Family Medicine 11/02/21 documented as of this encounter
--- OUTSIDE RECORDS SUMMARY | 2025-04-12 20:18 | XMS_ITS | Encounter Summary ---
Author Organization [employer] Address [address] [place] [address] 7 [place] [address] Care Team Providers Care Cassandra Architect Name Role Phone [facility] Primary Care Provider [phone] Reason for Visit * Reason Comments Med Refill Encounter Details Date Type Department Care Team (Late Contact Info) Description 06/19/2023 Refill [facility] [address] [place] [address] [address] Social History Tobacco Use Types Packs/Day Years [...] Description 04/14/2025 3:00 PM EDT Office Visit [facility] [address] [place] [address] Marychuy Fam MD [address] [place] [address] 04/29/2025 2:45 PM EST Office Visit [facility] [address] [place] [address] [facility] [address] [address] 07/05/2025 1:30 PM EST Office Visit [facility] [address] [place] [address] Altagracia Simmons OD [address] [place] [address] 07/07/2025 3:30 PM EST Office Visit [facility] [address] [place] [address] Marychuy Fam MD [address] [place] [address] documented as of this encounter Visit Diagnoses Not on filedocumented in this encounter Care Teams Cassandra Architect Relationship Specialty Start Date End Date Angelica Henley FNP [address] [place] [address] PCP - General Family Medicine 11/02/21 documented as of this encounter
== END 2025-04-11 15:48 | disposition home or self-care (01) ==
LOC: HO.LNP 15:47
PROVIDERS: PCP Registered Nurse; Visit Provider Nurse Practitioner Family
DX: Z12.11 Encounter for screening for malignant neoplasm of colon (principal); K21.9 Gastro-esophageal reflux disease without esophagitis; K59.01 Slow transit constipation; R14.0 Abdominal distension (gaseous); R10.13 Epigastric pain; R06.81 Apnea, not elsewhere classified; J45.909 Unspecified asthma, uncomplicated
CPT/HCPCS: 83013; 99202